=== PATIENT | male | born 1955 | race Caucasian/White ===

== ENCOUNTER → 2016-05-09 | Outpatient (CLI) | payer OTHER ==
[2016-05-09 15:12] LABS: ABSOLUTE EOSINOPHILS # (AUTO) 0.1 10^3/uL (0.0-0.6); ABSOLUTE MONOCYTES (AUTO) 0.4 10^3/uL (0.1-1.4); ABSOLUTE NEUT (AUTO) 1.5 10^3/uL (1.7-8.2); BASOPHILS % (AUTO) 0.7 % (0-2); EOSINOPHILS % (AUTO) 3.6 % (0-6); HEMATOCRIT 46.7 % (37.9-51.0); HEMOGLOBIN 16.3 g/dL (13.5-17.0); HGB HCT DIFFERENCE 2.2; LYMPHOCYTES % (AUTO) 48.7 % (13-45); MEAN CORPUSCULAR HEMOGLOBIN 33.1 pg (27.0-33.4); MEAN CORPUSCULAR HGB CONC 34.9 g/dL (32.0-36.0); MEAN CORPUSCULAR VOLUME 95 fl (80-97); MONOCYTES % (AUTO) 10.9 % (3-13); RED BLOOD COUNT 4.92 10^6/uL (4.35-5.55); RED CELL DISTRIBUTION WIDTH 13.6 % (11.5-14.0); SEGMENTED NEUTROPHILS % (AUTO) 36.1 % (42-78); WHITE BLOOD COUNT 4.1 10^3/uL (4.0-10.5)
[2016-05-09 15:26] LABS: ALANINE AMINOTRANSFERASE 171 U/L (21-72); ALBUMIN 4.8 g/dL (3.5-5.0); ALKALINE PHOSPHATASE 85 U/L (38-126); ANION GAP 14 (5-19); ASPARTATE AMINO TRANSFERASE 188 U/L (17-59); BILIRUBIN,TOTAL 2.1 mg/dL (0.2-1.3); BLOOD UREA NITROGEN 10 mg/dL (7-20); CALCIUM 10.4 mg/dL (8.4-10.2); CARBON DIOXIDE 25 mmol/L (22-30); CHLORIDE 105 mmol/L (98-107); CREATININE RESULT 0.92 mg/dL (0.52-1.25); GLUCOSE 130 mg/dL (75-110); MAGNESIUM 1.6 mg/dL (1.6-2.3); PHOSPHORUS 3.6 mg/dL (2.5-4.5); POTASSIUM 3.9 mmol/L (3.6-5.0); SODIUM 143.8 mmol/L (137-145); TOTAL PROTEIN 8.8 g/dL (6.3-8.2)
[2016-05-11 04:38] LABS: HEPATITIS C VIRUS AB >11.0 s/co ratio (0.0-0.9)
[2016-05-12 06:16] LABS: HEPATITIS A AB TOTAL Positive (Negative)
== END ==
LOC: CCC 14:12
DX: I10 Essential (primary) hypertension (principal); D69.6 Thrombocytopenia, unspecified; R25.2 Cramp and spasm
CPT/HCPCS: 36415; 72110; 73522; 80053; 83036; 83735; 84100; 84443; 85025; 86317; 86708; 86709; 86803; 86804; 87340

== ENCOUNTER 2016-12-12 12:42 | Emergency (ER) | payer SELFPAY ==
[2016-12-12] MEDS ORDERED: MORPHINE SULFATE 10 MG/ML INJ IV ONE (13:04)
--- NOTE | 2016-12-12 13:21 | ER Document Report ---
ED GI/ - General Chief Complaint: Urinary Problem Stated Complaint: URINARY ISSUES Time Seen by Provider: 12/12/16 12:57 Mode of Arrival: Ambulatory Information source: Patient Notes: 61 yo homeless (sleeping under bridge) divertulosis, tachycardia, arthritis in back, muscle cramps, neuropahty soles of feet, hypertension- ran out of meds, non smoke, etoh 3 x week, non drugs male with suprapubic pain with dysuria since friday, hematluria friday, slow stream-dribble, chills. Testicles ached this morning , reason he came in. No perioneal pain. Hx prostatitis (not same pain-that was perineal pain). Abstinant for 5 years. No hx std. PSH: appendectomy CT report already back, no diverticulitis or inflammatory changes, fatyy liver. UA shows dehydration. IV fluid started. TRAVEL OUTSIDE OF THE [place] IN LAST 30 DAYS: No - Related Data Allergies/Adverse Reactions: amoxicillin [Amoxicillin] Allergy (Unknown, Verified 12/12/16 12:47) ampicillin [Ampicillin] Allergy (Unknown, Verified 12/12/16 12:47) ceftriaxone sodium [From Rocephin] Allergy (Unknown, Verified 12/12/16 12:47) Cephalosporins Allergy (Unknown, Verified 12/12/16 12:47) Penicillins Allergy (Unknown, Verified 12/12/16 12:47) tetracycline [Tetracycline] Allergy (Unknown, Verified 12/12/16 12:47) Past Medical History - General Information source: Patient - Social History Smoking Status: Never Smoker Chew tobacco use (# tins/day): No Frequency of alcohol use: Occasional Drug Abuse: None Family History: Reviewed & Not Pertinent, Arthritis, Hypertension - Past Medical History Cardiac Medical History: Reports: Hx Hypertension Renal/ Medical History: Denies: Hx Peritoneal Dialysis GI Medical History: Reports: Hx Gastroesophageal Reflux Disease - PPI dependent Musculoskeltal Medical History: Reports Hx Arthritis Past Surgical History: Reports: Hx Appendectomy, Hx Orthopedic Surgery - Immunizations Hx Diphtheria, Pertussis, Tetanus Vaccination: Yes Review of Systems - Review of Systems Constitutional: No symptoms reported EENT: No symptoms reported Cardiovascular: No symptoms reported Respiratory: No symptoms reported Gastrointestinal: No symptoms reported Genitourinary: No symptoms reported Male Genitourinary: See HPI Musculoskeletal: No symptoms reported Skin: No symptoms reported Hematologic/Lymphatic: No symptoms reported Neurological/Psychological: No symptoms reported Physical Exam - Vital signs Vitals: Temp Pulse Resp BP Pulse Ox 98.4 F 72 18 148/83 H 95 12/12/16 12:47 12/12/16 12:47 12/12/16 12:47 12/12/16 12:47 12/12/16 12:47 Interpretation: Normal - General General appearance: Appears well, Alert - HEENT Head: Normocephalic, Atraumatic Eyes: Normal Pupils: PERRL - Respiratory Respiratory status: No respiratory distress Chest status: Nontender Breath sounds: Normal Chest palpation: Normal - Cardiovascular Rhythm: Regular Heart sounds: Normal auscultation Murmur: No - Abdominal Inspection: Normal Distension: No distension Bowel sounds: Normal Tenderness: Tender - mild suprapubic Organomegaly: No organomegaly - Rectal Tenderness: Yes Hemorrhoids: None Prostate: Tender - Back Back: Normal, Nontender. No: CVA tenderness - Extremities General upper extremity: Normal inspection, Nontender, Normal color, Normal ROM , Normal temperature General lower extremity: Normal inspection, Nontender, Normal color, Normal ROM , Normal temperature, Normal weight bearing. No: Evi's sign - Neurological Neuro grossly intact: Yes Cognition: Normal Orientation: AAOx4 Taylor Coma Scale Eye Opening: Spontaneous Taylor Coma Scale Verbal: Oriented Taylor Coma Scale Motor: Obeys Commands Taylor Coma Scale Total: 15 Speech: Normal Motor strength normal: LUE, RUE, LLE, RLE Sensory: Normal - Psychological Associated symptoms: Normal affect, Normal mood - Skin Skin Temperature: Warm Skin Moisture: Dry Skin Color: Normal Skin irregularity: negative: Rash Course - Vital Signs Vital signs: Temp Pulse Resp BP Pulse Ox 98.9 F 80 18 142/86 H 97 12/12/16 16:53 12/12/16 16:53 12/12/16 12:47 12/12/16 16:53 12/12/16 16:53 - Laboratory Result Diagrams: 12/12/16 14:15 12/12/16 14:15 Laboratory results interpreted by me: 12/12/16 12/12/16 12/12/16 13:04 14:15 14:15 MCH 34.1 H Plt Count 55 L Total Bilirubin 2.6 H Direct Bilirubin 0.9 H AST 93 H ALT 75 H Total Protein 8.9 H Urine Protein 30 H Urine Ketones TRACE H Urine Bilirubin SMALL H Urine Urobilinogen 4.0 H Urine Ascorbic Acid 40 H Discharge - Discharge Clinical Impression: Dysuria, Elevated liver enzymes, Dehydration Prostatitis Qualifiers: Prostatitis type: acute Qualified Code(s): N41.0 - Acute prostatitis Condition: Good Disposition: HOME, SELF-CARE Instructions: Liver Function Abnormality ([facility]), Prostatitis ([facility]), Trimethoprim -Sulfa ([facility]) Additional Instructions: plenty of fluids to er if worse you must take the antibiotics for 10 days Please complete the patient satisfaction survey if you get one, and return it.. If you do not receive a survey, then you can go to the [facility] website, [email or web address] and place your comments about your very good care. Thank you very much. It was a pleasure being your medical provider today. Prescriptions: Sulfamethoxazole/Trimethoprim [Sulfamethoxazole-Tmp Ds Tablet] 1 each PO BID # 20 tablet Referrals: GENIA DAVIS MD [[facility]] - Follow up as needed
[2016-12-12 13:45] LABS: APPEARANCE,URINE CLEAR; BILIRUBIN,URINE SMALL (NEGATIVE); GLUCOSE, URINE NEGATIVE (NEGATIVE); KETONES,URINE TRACE mg/dL (NEGATIVE); LEUKOCYTE ESTERASE,URINE NEGATIVE (NEGATIVE); NITRITE,URINE NEGATIVE (NEGATIVE); PROTEIN,URINE 30 mg/dL (NEGATIVE); URINE SPECIFIC GRAVITY 1.035
--- NOTE | 2016-12-12 14:16 | RADIOLOGY REPORT (SQ) ---
EXAM DESCRIPTION: CT ABD/PELVIS NO ORAL OR IV COMPLETED DATE/TIME: 12/12/2016 2:06 pm REASON FOR STUDY: suprapubic pain/bloody urine COMPARISON: 05/19/2009. TECHNIQUE: CT scan of the abdomen and pelvis performed without intravenous or oral contrast. Images reviewed with lung, soft tissue, and bone windows. Reconstructed coronal and sagittal MPR images revi ewed. All images stored on PACS. All CT scanners at this facility use dose modulation, iterative reconstruction, and/or weight based d osing when appropriate to reduce radiation dose to as low as reasonably achievable (ALARA). [facility]: Dose Right [facility]: CareDose [facility]: Dose Right [facility]: Teradose 4D [facility]: [employer] RADIATION DOSE: mGy. LIMITATIONS: None. FINDINGS: LOWER CHEST: No significant findings. No nodules or infiltrates. NON-CONTRASTED LIVER, SPLEEN, ADRENALS: Evaluation limited by lack of IV contrast. Hepatomegaly with diffuse decreased attenuation. Slightly nodular contour of the liver. No identified significant ma sses. PANCREAS: No masses. No peripancreatic inflammatory changes. GALLBLADDER: No identified stones by CT criteria. No inflammatory changes to suggest cholecystitis. RIGHT KIDNEY AND URETER: No suspicious masses. Assessment limited by lack of IV contrast. No signif icant calcifications. No hydronephrosis or hydroureter. LEFT KIDNEY AND URETER: No suspicious masses. Assessment limited by lack of IV contrast. No signifi cant calcifications. No hydronephrosis or hydroureter. AORTA AND RETROPERITONEUM: No aneurysm. No retroperitoneal masses or adenopathy. BOWEL AND PERITONEAL CAVITY: Scattered diverticuli primarily in the sigmoid colon. No obvious masses or inflammatory changes. No free fluid. APPENDIX: Not visualized. PELVIS, BLADDER, AND ABDOMINAL WALL:No abnormal masses. No free fluid. Bladder normal. BONES: No significant findings. OTHER: No other significant finding. IMPRESSION: 1. SIGMOID DIVERTICULOSIS. NO CT FINDINGS OF ACUTE DIVERTICULITIS. 2. FATTY INFILTRATION OF THE LIVER. 3. NO OTHER SIGNIFICANT OR ACUTE PROCESS IN THE ABDOMEN OR PELVIS. COMMENT: Quality ID # [id number]: Final reports with documentation of one or more dose reduction techniques (e.g., Automated exposure control, adjustment of the mA and/or kV according to patient size, use of iterative reconstruction technique) TECHNICAL DOCUMENTATION: JOB ID: [id number]- All Rights Reserved
[2016-12-12] MEDS ORDERED: NORMAL SALINE 1000 ML 2,000 ML IV ONE (14:28)
[2016-12-12] MEDS ORDERED: ONDANSETRON 4 MG TAB.RAPDIS PO ONE (14:33)
[2016-12-12 14:39] LABS: ABSOLUTE EOSINOPHILS # (AUTO) 0.2 10^3/uL (0.0-0.6); ABSOLUTE LYMPHOCYTES (AUTO) 1.8 10^3/uL (0.5-4.7); ABSOLUTE MONOCYTES (AUTO) 0.5 10^3/uL (0.1-1.4); ABSOLUTE NEUT (AUTO) 2.2 10^3/uL (1.7-8.2); BASOPHILS % (AUTO) 0.8 % (0-2); EOSINOPHILS % (AUTO) 3.6 % (0-6); HEMATOCRIT 43.6 % (37.9-51.0); HEMOGLOBIN 15.4 g/dL (13.5-17.0); HGB HCT DIFFERENCE 2.6; LYMPHOCYTES % (AUTO) 38.9 % (13-45); MEAN CORPUSCULAR HEMOGLOBIN 34.1 pg (27.0-33.4); MEAN CORPUSCULAR HGB CONC 35.4 g/dL (32.0-36.0); MEAN CORPUSCULAR VOLUME 96 fl (80-97); MONOCYTES % (AUTO) 9.8 % (3-13); RED BLOOD COUNT 4.53 10^6/uL (4.35-5.55); SEGMENTED NEUTROPHILS % (AUTO) 46.9 % (42-78); WHITE BLOOD COUNT 4.7 10^3/uL (4.0-10.5)
[2016-12-12 14:54] LABS: ALANINE AMINOTRANSFERASE 75 U/L (21-72); ALBUMIN 4.6 g/dL (3.5-5.0); ALKALINE PHOSPHATASE 79 U/L (38-126); ANION GAP 13 (5-19); ASPARTATE AMINO TRANSFERASE 93 U/L (17-59); BILIRUBIN,DIRECT 0.9 mg/dL (0.0-0.4); BILIRUBIN,TOTAL 2.6 mg/dL (0.2-1.3); BLOOD UREA NITROGEN 14 mg/dL (7-20); CALCIUM 9.6 mg/dL (8.4-10.2); CARBON DIOXIDE 26 mmol/L (22-30); CHLORIDE 104 mmol/L (98-107); CREATININE RESULT 0.93 mg/dL (0.52-1.25); GLUCOSE 101 mg/dL (75-110); LIPASE 286.2 U/L (23-300); POTASSIUM 3.8 mmol/L (3.6-5.0); SODIUM 143.2 mmol/L (137-145); TOTAL PROTEIN 8.9 g/dL (6.3-8.2)
[2016-12-12] MEDS ORDERED: SULFAMETHOXAZOLE/TRIMETHOPRIM 800-160 MG TABLET PO ONE ×2 (15:30→15:36)
[2016-12-12 17:21] VITALS: BP 142/86
== END 2016-12-12 16:53 | disposition home or self-care (01) ==
LOC: ER 12:42
DX: N41.0 Acute prostatitis (principal); E86.0 Dehydration; R30.0 Dysuria; R74.8 Abnormal levels of other serum enzymes; R39.198 Other difficulties with micturition; R00.0 Tachycardia, unspecified; M46.90 Unspecified inflammatory spondylopathy, site unspecified
CPT/HCPCS: 99284; 96374; 36415; 87086; 83690; 85025; 80053; 81001; 74176; S0119; J2270; J7030

== ENCOUNTER 2017-08-09 20:32 | Emergency (ER) | payer SELFPAY ==
--- NOTE | 2017-08-09 21:11 | RADIOLOGY REPORT (SQ) ---
EXAM DESCRIPTION: SHOULDER RIGHT 2 OR MORE VIEWS COMPLETED DATE/TIME: 08/09/2017 9:04 pm REASON FOR STUDY: INJURY, PAIN COMPARISON: None. NUMBER OF VIEWS: Three views. TECHNIQUE: Internal rotation, external rotation, and Y view images acquired of the right shoulder. LIMITATIONS: None. FINDINGS: MINERALIZATION: Normal. BONES: No acute fracture or dislocation. No worrisome bone lesions. JOINTS: No dislocation. AC arthropathy. VISUALIZED LUNGS AND RIBS: No pneumothorax. No rib fracture. SOFT TISSUES: No radiopaque foreign body. OTHER: No other significant finding. IMPRESSION: NEGATIVE STUDY OF THE RIGHT SHOULDER. NO RADIOGRAPHIC EVIDENCE OF ACUTE INJURY. TECHNICAL DOCUMENTATION: JOB ID: [id number] [employer]- All Rights Reserved Reading location - IP/workstation name: [email or web address]
[2017-08-09] MEDS ORDERED: TRAMADOL HCL 50 MG TABLET PO ONE (21:25)
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
[2017-08-09 21:54] VITALS: BP 148/88
== END 2017-08-09 21:52 | disposition home or self-care (01) ==
LOC: ER 20:32
DX: S46.911A Strain of unspecified muscle, fascia and tendon at shoulder and upper arm level, right arm, initial encounter (principal); M25.511 Pain in right shoulder; W22.8XXA Striking against or struck by other objects, initial encounter; Y93.55 Activity, bike riding; I10 Essential (primary) hypertension; F17.200 Nicotine dependence, unspecified, uncomplicated; Z88.0 Allergy status to penicillin; Z88.1 Allergy status to other antibiotic agents
CPT/HCPCS: 99283

== ENCOUNTER 2017-08-15 15:12 | Emergency (ER) | payer SELFPAY ==
[2017-08-15 15:19] VITALS: BP 145/90
[2017-08-15] MEDS ORDERED: ACETAMINOPHEN 325 MG TABLET PO ONE (15:34)
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
== END 2017-08-15 17:15 | disposition left against medical advice (07) ==
LOC: ER 15:12
DX: S09.90XA Unspecified injury of head, initial encounter (principal); S00.81XA Abrasion of other part of head, initial encounter; S40.211A Abrasion of right shoulder, initial encounter; S80.211A Abrasion, right knee, initial encounter; S70.311A Abrasion, right thigh, initial encounter; S00.211A Abrasion of right eyelid and periocular area, initial encounter; S20.312A Abrasion of left front wall of thorax, initial encounter; S20.311A Abrasion of right front wall of thorax, initial encounter; S80.812A Abrasion, left lower leg, initial encounter; S40.011A Contusion of right shoulder, initial encounter; S40.029A Contusion of unspecified upper arm, initial encounter; S50.01XA Contusion of right elbow, initial encounter; S80.01XA Contusion of right knee, initial encounter; S80.12XA Contusion of left lower leg, initial encounter; M54.2 Cervicalgia; M79.1 Myalgia; R51 Headache; V19.9XXA Pedal cyclist (driver) (passenger) injured in unspecified traffic accident, initial encounter; Z59.0 Homelessness; I10 Essential (primary) hypertension
CPT/HCPCS: 70450; 70486; 71111; 72125; 99284

== ENCOUNTER 2017-08-22 13:03 | Emergency (ER) | payer SELFPAY ==
[2017-08-22 13:17] VITALS: BP 168/106
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
== END 2017-08-22 13:44 | disposition left against medical advice (07) ==
LOC: ER 13:03
DX: M79.605 Pain in left leg (principal); I10 Essential (primary) hypertension; Z80.0 Family history of malignant neoplasm of digestive organs
CPT/HCPCS: 99281

== ENCOUNTER 2017-10-09 12:31 | Inpatient (IN) | payer SELFPAY ==
[2017-10-09] MEDS ORDERED: ASPIRIN 81 MG TABLET, CHEWABLE PO ONE (13:14)
[2017-10-09] MEDS ORDERED: LORAZEPAM INJ 2 MG/1 ML VIAL IV ONE (13:17)
--- NOTE | 2017-10-09 13:17 | ER Document Report ---
ED Medical Screen (RME) - General Chief Complaint: Chest Pain Stated Complaint: CHEST PAIN Time Seen by Provider: 10/09/17 13:08 Notes: 62 years old male with a history of cocaine abuse in the past, drinks 3-4 beers a day, claims that he has not drank anything for 2 days. Presents with substernal chest pain radiating to the back since yesterday, associated with some difficulty in breathing. No left arm numbness tingling sensation nausea vomiting palpitation or diaphoresis. Also claimed that he is having severe left lower abdominal pain, chronic numbness and tingling sensation over the lower extremity. TRAVEL OUTSIDE OF THE [place] IN LAST 30 DAYS: No - Related Data Allergies/Adverse Reactions: amoxicillin [Amoxicillin] Allergy (Unknown, Verified 10/09/17 12:34) ampicillin [Ampicillin] Allergy (Unknown, Verified 10/09/17 12:34) ceftriaxone sodium [From Rocephin] Allergy (Unknown, Verified 10/09/17 12:34) Cephalosporins Allergy (Unknown, Verified 10/09/17 12:34) Penicillins Allergy (Unknown, Verified 10/09/17 12:34) tetracycline [Tetracycline] Allergy (Unknown, Verified 10/09/17 12:34) Past Medical History - Social History Chew tobacco use (# tins/day): No Frequency of alcohol use: Heavy Drug Abuse: None - Past Medical History Cardiac Medical History: Reports: Hx Hypertension Renal/ Medical History: Denies: Hx Peritoneal Dialysis GI Medical History: Reports: Hx Gastroesophageal Reflux Disease - PPI dependent Musculoskeltal Medical History: Reports Hx Arthritis, Reports Hx Musculoskeletal Deformity, Reports Hx Musculoskeletal Trauma Past Surgical History: Reports: Hx Appendectomy, Hx Orthopedic Surgery - Immunizations Hx Diphtheria, Pertussis, Tetanus Vaccination: Yes - 2015 Physical Exam - Vital signs Vitals: Temp Pulse Resp BP 98.1 F 115 H 22 H 182/101 H 10/09/17 12:45 10/09/17 12:45 10/09/17 12:45 10/09/17 12:45 Course - Vital Signs Vital signs: Temp Pulse Resp BP Pulse Ox 98.1 F 115 H 22 H 182/101 H 10/09/17 12:45 10/09/17 12:45 10/09/17 12:45 10/09/17 12:45
[2017-10-09] MEDS: NORMAL SALINE 1000 ML 1,000 ML IV PRN ×2 (13:36→21:34)
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
[2017-10-09 14:19] LABS: ABSOLUTE LYMPHOCYTES (AUTO) 0.9 10^3/uL (0.5-4.7); ABSOLUTE MONOCYTES (AUTO) 0.4 10^3/uL (0.1-1.4); ABSOLUTE NEUT (AUTO) 2.2 10^3/uL (1.7-8.2); BASOPHILS % (AUTO) 0.6 % (0-2); EOSINOPHILS % (AUTO) 0.8 % (0-6); HEMATOCRIT 44.5 % (37.9-51.0); HEMOGLOBIN 15.5 g/dL (13.5-17.0); LYMPHOCYTES % (AUTO) 26.6 % (13-45); MEAN CORPUSCULAR HEMOGLOBIN 33.4 pg (27.0-33.4); MEAN CORPUSCULAR HGB CONC 34.9 g/dL (32.0-36.0); MEAN CORPUSCULAR VOLUME 96 fl (80-97); MONOCYTES % (AUTO) 10.7 % (3-13); RED BLOOD COUNT 4.64 10^6/uL (4.35-5.55); RED CELL DISTRIBUTION WIDTH 13.9 % (11.5-14.0); SEGMENTED NEUTROPHILS % (AUTO) 61.3 % (42-78); TOTAL CELLS COUNTED % (AUTO) 100 %; WHITE BLOOD COUNT 3.5 10^3/uL (4.0-10.5)
--- NOTE | 2017-10-09 14:22 | RADIOLOGY REPORT (SQ) ---
EXAM DESCRIPTION: CHEST SINGLE VIEW COMPLETED DATE/TIME: 10/09/2017 2:13 pm REASON FOR STUDY: Chest pain chest pain COMPARISON: 03/12/2016 EXAM PARAMETERS: NUMBER OF VIEWS: One view. TECHNIQUE: Single frontal radiographic view of the chest acquired. RADIATION DOSE: NA LIMITATIONS: None. FINDINGS: LUNGS AND PLEURA: No opacities, masses or pneumothorax. No pleural effusion. MEDIASTINUM AND HILAR STRUCTURES: No masses. Contour normal. HEART AND VASCULAR STRUCTURES: Heart normal in size. Normal vasculature. BONES: No acute findings. HARDWARE: None in the chest. OTHER: No other significant finding. IMPRESSION: NO ACUTE RADIOGRAPHIC FINDING IN THE CHEST. TECHNICAL DOCUMENTATION: JOB ID: [id number] [employer]- All Rights Reserved Reading location - IP/workstation name: [email or web address]
--- NOTE | 2017-10-09 14:23 | RADIOLOGY REPORT (SQ) ---
EXAM DESCRIPTION: KUB/ABDOMEN (SINGLE VIEW) COMPLETED DATE/TIME: 10/09/2017 2:13 pm REASON FOR STUDY: Abdominal pain COMPARISON: None. NUMBER OF VIEWS: One view. TECHNIQUE: Supine radiographic image of the abdomen acquired. LIMITATIONS: None. FINDINGS: BOWEL GAS PATTERN: Normal bowel gas pattern. No dilated loops. CALCIFICATIONS: No suspicious calcifications. SOFT TISSUES: No gross mass or suggestion of organomegaly. HARDWARE: None in the abdomen. BONES: No acute fracture. No worrisome bone lesions. OTHER: No other significant finding. IMPRESSION: NO RADIOGRAPHIC EVIDENCE FOR ACUTE ABDOMINAL DISEASE. TECHNICAL DOCUMENTATION: JOB ID: [id number] [employer]- All Rights Reserved Reading location - IP/workstation name: [email or web address]
[2017-10-09 14:37] LABS: ALANINE AMINOTRANSFERASE 84 U/L (21-72); ALBUMIN 4.4 g/dL (3.5-5.0); ALKALINE PHOSPHATASE 88 U/L (38-126); ANION GAP 16 (5-19); ASPARTATE AMINO TRANSFERASE 205 U/L (17-59); BILIRUBIN,DIRECT 1.3 mg/dL (0.0-0.4); BILIRUBIN,TOTAL 3.1 mg/dL (0.2-1.3); BLOOD UREA NITROGEN 7 mg/dL (7-20); CALCIUM 9.8 mg/dL (8.4-10.2); CARBON DIOXIDE 25 mmol/L (22-30); CHLORIDE 102 mmol/L (98-107); CREATINE KINASE 316 U/L (55-170); GLUCOSE 112 mg/dL (75-110); POTASSIUM 3.8 mmol/L (3.6-5.0); SODIUM 143.1 mmol/L (137-145); TOTAL PROTEIN 9.8 g/dL (6.3-8.2)
[2017-10-09 14:38] LABS: ALCOHOL < 10 mg/dL (NONE DETECTED)
[2017-10-09 14:45] LABS: PLATELET COUNT 47 10^3/uL (150-450)
[2017-10-09 14:47] LABS: CREATINE KINASE MB 2.98 ng/mL (<4.55); TROPONIN I 0.018 ng/mL
--- NOTE | 2017-10-09 15:11 | RADIOLOGY REPORT (SQ) ---
EXAM DESCRIPTION: TIBIA FIBULA RIGHT COMPLETED DATE/TIME: 10/09/2017 3:01 pm REASON FOR STUDY: 16; pain after fall COMPARISON: 04/12/2011. NUMBER OF VIEWS: Two views. TECHNIQUE: Two radiographic images acquired of the right tibia and fibula to include the knee and an kle in at least one projection. LIMITATIONS: None. FINDINGS: MINERALIZATION: Normal. BONES: No acute fracture or dislocation. No worrisome bone lesions. SOFT TISSUES: No obvious swelling or foreign body. OTHER: No other significant finding. IMPRESSION: NEGATIVE STUDY OF THE RIGHT TIBIA AND FIBULA. NO RADIOGRAPHIC EVIDENCE OF ACUTE INJURY. TECHNICAL DOCUMENTATION: JOB ID: [id number] [employer]- All Rights Reserved Reading location - IP/workstation name: [email or web address]
[2017-10-09 15:22] LABS: APPEARANCE,URINE SLIGHTLY-CLOUDY; BILIRUBIN,URINE SMALL (NEGATIVE); CALCIUM OXALATE CRYSTALS,URINE FEW /HPF; COLOR,URINE AMBER; GLUCOSE, URINE NEGATIVE (NEGATIVE); KETONES,URINE 20 mg/dL (NEGATIVE); LEUKOCYTE ESTERASE,URINE NEGATIVE (NEGATIVE); NITRITE,URINE NEGATIVE (NEGATIVE); PROTEIN,URINE 30 mg/dL (NEGATIVE); URINE SPECIFIC GRAVITY 1.029
[2017-10-09 15:34] LABS: URINE AMPHETAMINES SCREEN NEGATIVE; URINE BARBITURATES SCREEN NEGATIVE; URINE BENZODIAZEPINES SCREEN NEGATIVE; URINE COCAINE SCREEN NEGATIVE; URINE MARIJUANA (THC) SCREEN NEGATIVE; URINE METHADONE SCREEN NEGATIVE; URINE PHENCYCLIDINE SCREEN NEGATIVE
--- NOTE | 2017-10-09 15:52 | RADIOLOGY REPORT (SQ) ---
EXAM DESCRIPTION: CT HEAD WITHOUT COMPLETED DATE/TIME: 10/09/2017 3:41 pm REASON FOR STUDY: 16; fall COMPARISON: 08/15/2017 TECHNIQUE: Axial images acquired through the brain without intravenous contrast. Images reviewed wi th bone, brain and subdural windows. Additional sagittal and coronal reconstructions were generated. Images stored on PACS. All CT scanners at this facility use dose modulation, iterative reconstruction, and/or weight based d osing when appropriate to reduce radiation dose to as low as reasonably achievable (ALARA). [facility]: Dose Right [facility]: CareDose [facility]: Dose Right [facility]: Teradose 4D [facility]: Smart [employer] RADIATION DOSE: CT Rad equipment meets quality standard of care and radiation dose reduction techniq ues were employed. CTDIvol: 53.2 mGy. DLP: 1017 mGy-cm. mGy. LIMITATIONS: None. FINDINGS: VENTRICLES: Normal size and contour. CEREBRUM: No masses. No hemorrhage. No midline shift. No evidence for acute infarction. Normal gra y/white matter differentiation. No areas of low density in the white matter. CEREBELLUM: No masses. No hemorrhage. No alteration of density. No evidence for acute infarction. EXTRAAXIAL SPACES: No fluid collections. No masses. ORBITS AND GLOBE: No intra- or extraconal masses. Normal contour of globe without masses. CALVARIUM: No fracture. PARANASAL SINUSES: No fluid or mucosal thickening. SOFT TISSUES: No mass or hematoma. OTHER: No other significant finding. IMPRESSION: NORMAL BRAIN CT WITHOUT CONTRAST. EVIDENCE OF ACUTE STROKE: NO. COMMENT: Quality ID # [id number]: Final reports with documentation of one or more dose reduction techniques (e.g., Automated exposure control, adjustment of the mA and/or kV according to patient size, use of iterative reconstruction technique) TECHNICAL DOCUMENTATION: JOB ID: [id number] [employer]- All Rights Reserved Reading location - IP/workstation name: [email or web address]
--- NOTE | 2017-10-09 15:58 | RADIOLOGY REPORT (SQ) ---
EXAM DESCRIPTION: CT CHEST WITH; CT ABD/PELVIS WITH IV ONLY COMPLETED DATE/TIME: 10/09/2017 3:41 pm REASON FOR STUDY: 16; trauma; fall from 10 feet two days ago; 16, fall from height two days ago with chest/belly COMPARISON: None. CONTRAST TYPE AND DOSE: contrast/concentration: Isovue 370.00 mg/ml; Total Contrast Delivered: 86.0 ml; Total Saline Delivered: 56.3 ml RENAL FUNCTION: GFR > 60. TECHNIQUE: CT scan of the chest performed using helical scanning technique with dynamic intravenous contrast injection. Images reviewed with lung, soft tissue and bone windows. Reconstructed coronal a nd sagittal MPR images reviewed. All images stored on PACS. CT scan of the abdomen and pelvis performed with intravenous and without oral contrastusing helical s jessica technique with dynamic intravenous contrast injection. Images reviewed with lung, soft tissu e and bone windows. Reconstructed coronal and sagittal MPR images reviewed. Delayed images for eval uation of the urinary system also acquired and evaluated. All images stored on PACS. All CT scanners at this facility use dose modulation, iterative reconstruction, and/or weight based d osing when appropriate to reduce radiation dose to as low as reasonably achievable (ALARA). [facility]: Dose Right [facility]: CareDose [facility]: Dose Right [facility]: Teradose 4D [facility]: [email or web address] RADIATION DOSE: CT Rad equipment meets quality standard of care and radiation dose reduction techniq ues were employed. CTDIvol: 8.3 - 12.6 mGy. DLP: 1239 mGy-cm. . LIMITATIONS: None. FINDINGS: CHEST: LUNGS AND PLEURA: No opacities, nodules, masses. No pneumothorax. No effusions. HILAR AND MEDIASTINAL STRUCTURES: No identified masses or abnormal nodes. HEART AND VASCULAR STRUCTURES: No aneurysm or dissection. No central pulmonary emboli. No pericardi al effusion. HARDWARE: None. THYROID AND OTHER SOFT TISSUES: No masses. No adenopathy. BONES: No significant finding. OTHER: No other significant finding. ABDOMEN AND PELVIS: LIVER: Diffuse fatty infiltration. No masses. SPLEEN: Normal size. No focal lesions. PANCREAS: No masses. No significant calcifications. No adjacent inflammation or peripancreatic fluid collections. Pancreatic duct not dilated. GALLBLADDER: No identified stones by CT criteria. No inflammatory changes to suggest cholecystitis. ADRENAL GLANDS: No significant masses or asymmetry. RIGHT KIDNEY AND URETER: No solid masses. No significant calcification. No hydronephrosis or hydroure ter. LEFT KIDNEY AND URETER: No solid masses. No significant calcification. No hydronephrosis or hydrouret er. AORTA AND VESSELS: No aneurysm. No dissection. Renal arteries, SMA, celiac without stenosis. RETROPERITONEUM: No retroperitoneal adenopathy, hemorrhage or masses. BOWEL AND PERITONEAL CAVITY: Diffuse diverticulosis. No diverticulitis. APPENDIX: Surgically absent. ABDOMINAL WALL: Left inguinal hernia contains fat. PELVIS: No mass or free fluid. Normal bladder. BONES: No significant or acute findings. OTHER: No other significant finding. IMPRESSION: NORMAL CT OF THE CHEST WITH IV CONTRAST. Markedly fatty liver. No acute post traumatic changes. TECHNICAL DOCUMENTATION: JOB ID: [id number] Quality ID # [id number]: Final reports with documentation of one or more dose reduction techniques (e.g., Au tomated exposure control, adjustment of the mA and/or kV according to patient size, use of iterative reconstruction technique) 2010 [employer]- All Rights Reserved Reading location - IP/workstation name: [email or web address]
[2017-10-09] MEDS ORDERED: NITROGLYCERIN 0.4 MG/TAB 25 TAB/BOTTLE SL PRN (18:59)
[2017-10-09] MEDS ORDERED: MAG HYDROX/AL HYDROX/SIMETH SUSP 30 ML UDCUP PO PRN (19:02)
[2017-10-09] MEDS ORDERED: ONDANSETRON HCL INJ/PF 4 MG/2 ML SDV IV PRN (19:02)
[2017-10-09 19:03] LABS: PROTHROMBIN TIME 16.8 SEC (11.4-15.4)
[2017-10-09 19:05] LABS: D-DIMER 1.14 ug/mL (0.00-0.50)
[2017-10-09] MEDS ORDERED: LORAZEPAM INJ 2 MG/1 ML VIAL IV PRN (19:07)
[2017-10-09] MEDS ORDERED: NITROGLYCERIN 0.4 MG/TAB 25 TAB/BOTTLE SL ONE (19:30)
[2017-10-09] MEDS: MORPHINE SULFATE 10 MG/ML INJ IV PRN (19:36)
[2017-10-09] MEDS ORDERED: TRAMADOL HCL 50 MG TABLET PO PRN (19:36)
[2017-10-09] MEDS: LORAZEPAM INJ 2 MG/1 ML VIAL IV PRN (19:37)
[2017-10-09] MEDS ORDERED: HYDRALAZINE HCL INJ/PF 20 MG/1 ML SDV IV PRN (19:49)
--- NOTE | 2017-10-09 19:51 | PDOC H&P ---
History of Present Illness Patient complains of: Chest pain History of Present Illness: JING BONILLA is a 62 year old male with a past medical history of hypertension, alcohol abuse with continuous use, an who presented to the emergency department today with a complaint of sudden onset chest pain that woke him from sleep. His pain is described as d GERD midsternal radiating to his back and worsened by activity, relieved by lying in a left lateral recumbent position. He reports that his pain is associated with slight dyspnea diaphoresis. He did have an episode of nausea with vomiting earlier today. He also reports that approximately 3 days ago, the patient fell approximately 10 feet landing on his back and now has upper back pain, mid abdominal pain and suprapubic pain. He denies loss of consciousness. Following his fall, he decided that he needed to stop drinking alcohol and abruptly ceased all alcohol consumption. His last alcohol intake was 10/07/17. He denies a history of alcohol withdrawal or seizure. Evaluation in the emergency department reveals essentially normal imaging including a head CT, noncontrasted CT of the chest, abdomen, and pelvis, normal chest x-ray, KUB, and right tibia/fibula. EKG reveals sinus tachycardia with left anterior fascicular block which is changed from previous EKG in 2016 which showed normal sinus rhythm. Initial troponin is 0.018, follow-up is indeterminately elevated at 0.029. The patient does continue to complain of intermittent chest pain associated with dyspnea. Laboratory evaluation reveals thrombocytopenia (47), elevated PT/INR (16.8/1.30) and an elevated d-dimer (1.14 ), elevated LFTs, mildly elevated lipase (342) urinalysis suggestive of dehydration and a normal tox screen. The patient is referred to the hospitalist service for observational admission and chest pain rule out. Past Medical History Cardiac Medical History: Reports: Hyperlipidema, Hypertension Denies: Congestive Heart Failure, Myocardial Infarction Pulmonary Medical History: Reports: None EENT Medical History: Reports: None Neurological Medical History: Reports: None Endocrine Medical History: Reports: None Renal/ Medical History: Reports: None Malignancy Medical History: Reports: None GI Medical History: Reports: Gastroesophageal Reflux Disease - PPI dependent Musculoskeltal Medical History: Reports: Arthritis Skin Medical History: Reports: None Psychiatric Medical History: Reports: Alcohol Dependency Denies: Substance Abuse, Tobacco Dependency Traumatic Medical History: Reports: None Hematology: Reports: None Infectious Medical History: Reports: None Past Surgical History Past Surgical History: Reports: Appendectomy, Orthopedic Surgery Social History Information Source: Patient Lives with: Alone Smoking Status: Never Smoker Frequency of Alcohol Use: Heavy Hx Recreational Drug Use: Yes - in recovery Drugs: None Hx Prescription Drug Abuse: No - Advance Directive Resuscitation Status: Full Code Surrogate healthcare decision maker:: The patient's sister, Solange Conroy Family History Family History: Reviewed & Not Pertinent, Arthritis, Hypertension Parental Family History Reviewed: Yes Children Family History Reviewed: Yes Sibling(s) Family History Reviewed.: Yes Medication/Allergy Home Medications: Tramadol HCl [Ultram 50 mg Tablet] 50 mg PO Q6HP PRN 10/09/17 Allergies/Adverse Reactions: amoxicillin [Amoxicillin] Allergy (Unknown, Verified 10/09/17 12:34) ampicillin [Ampicillin] Allergy (Unknown, Verified 10/09/17 12:34) ceftriaxone sodium [From Rocephin] Allergy (Unknown, Verified 10/09/17 12:34) Cephalosporins Allergy (Unknown, Verified 10/09/17 12:34) Penicillins Allergy (Unknown, Verified 10/09/17 12:34) tetracycline [Tetracycline] Allergy (Unknown, Verified 10/09/17 12:34) Review of Systems Constitutional: PRESENT: headache(s). ABSENT: chills, fever(s), weight gain, weight loss Eyes: ABSENT: visual disturbances Ears: ABSENT: hearing changes Cardiovascular: PRESENT: chest pain. ABSENT: dyspnea on exertion, edema, orthropnea, palpitations Respiratory: PRESENT: dyspnea. ABSENT: cough, hemoptysis Gastrointestinal: PRESENT: abdominal pain, nausea, vomiting. ABSENT: coffee ground emesis, constipation, diarrhea, hematemesis, hematochezia Genitourinary: ABSENT: dysuria, hematuria Musculoskeletal: PRESENT: back pain. ABSENT: joint swelling Integumentary: ABSENT: rash, wounds Neurological: PRESENT: weakness. ABSENT: abnormal gait, abnormal speech, confusion, dizziness, focal weakness, syncope Psychiatric: ABSENT: anxiety, depression, homidical ideation, suicidal ideation Endocrine: ABSENT: cold intolerance, heat intolerance, polydipsia, polyuria Hematologic/Lymphatic: ABSENT: easy bleeding, easy bruising Physical Exam Vital Signs: Temp Pulse Resp BP Pulse Ox 98.1 F 115 H 14 138/89 H 98 10/09/17 12:45 10/09/17 12:45 10/09/17 18:00 10/09/17 15:16 10/09/17 18:00 Intake & Output 10/08/17 10/09/17 10/10/17 06:59 06:59 06:59 Weight 79.9 kg General appearance: PRESENT: no acute distress, cooperative, well-developed, well-nourished - Overweight Head exam: PRESENT: atraumatic, normocephalic Eye exam: PRESENT: conjunctiva pink, EOMI, PERRLA. ABSENT: scleral icterus Ear exam: PRESENT: normal external ear exam Mouth exam: PRESENT: moist, tongue midline Neck exam: ABSENT: carotid bruit, JVD, lymphadenopathy, thyromegaly Respiratory exam: PRESENT: clear to auscultation rogelio, symmetrical, unlabored. ABSENT: rales, rhonchi, wheezes Cardiovascular exam: PRESENT: RRR, +S1, +S2. ABSENT: diastolic murmur, rubs, systolic murmur Pulses: PRESENT: normal dorsalis pedis pul Vascular exam: PRESENT: normal capillary refill GI/Abdominal exam: PRESENT: normal bowel sounds, soft, tenderness, other - Slight ecchymosis. ABSENT: distended, guarding, mass, organolmegaly, rebound Rectal exam: PRESENT: deferred Gentrourinary exam: PRESENT: other - Patient refused exam Extremities exam: PRESENT: full ROM. ABSENT: calf tenderness, clubbing, pedal edema Neurological exam: PRESENT: alert, awake, oriented to person, oriented to place , oriented to time, oriented to situation, CN II-XII grossly intact. ABSENT: motor sensory deficit Psychiatric exam: PRESENT: appropriate affect, normal mood. ABSENT: homicidal ideation, suicidal ideation Skin exam: PRESENT: dry, intact, warm, other - Scattered ecchymosis. ABSENT: cyanosis, rash Results Laboratory Results: 10/09/17 13:38 10/09/17 13:38 10/09/17 10/09/17 10/09/17 13:38 13:38 13:38 WBC 3.5 L RBC 4.64 Hgb 15.5 Hct 44.5 MCV 96 MCH 33.4 MCHC 34.9 RDW 13.9 Plt Count 47 L Seg Neutrophils % 61.3 Lymphocytes % 26.6 Monocytes % 10.7 Eosinophils % 0.8 Basophils % 0.6 Absolute Neutrophils 2.2 Absolute Lymphocytes 0.9 Absolute Monocytes 0.4 Absolute Eosinophils 0.0 Absolute Basophils 0.0 Sodium 143.1 Potassium 3.8 Chloride 102 Carbon Dioxide 25 Anion Gap 16 BUN 7 Creatinine 0.68 Est GFR ( Amer) > 60 Est GFR (Non-Af Amer) > 60 Glucose 112 H Calcium 9.8 Total Bilirubin 3.1 H AST 205 H ALT 84 H Alkaline Phosphatase 88 Total Protein 9.8 H Albumin 4.4 Lipase 342.8 H Urine Color Urine Appearance Urine pH Ur Specific [place] Urine Protein Urine Glucose (UA) Urine Ketones Urine Blood Urine Nitrite Ur Leukocyte Esterase Urine WBC (Auto) Urine RBC (Auto) 10/09/17 14:56 WBC RBC Hgb Hct MCV MCH MCHC RDW Plt Count Seg Neutrophils % Lymphocytes % Monocytes % Eosinophils % Basophils % Absolute Neutrophils Absolute Lymphocytes Absolute Monocytes Absolute Eosinophils Absolute Basophils Sodium Potassium Chloride Carbon Dioxide Anion Gap BUN Creatinine Est GFR ( Amer) Est GFR (Non-Af Amer) Glucose Calcium Total Bilirubin AST ALT Alkaline Phosphatase Total Protein Albumin Lipase Urine Color ROSALINDA Urine Appearance SLIGHTLY-CLOUDY Urine pH 5.0 Ur Specific [place] 1.029 Urine Protein 30 H Urine Glucose (UA) NEGATIVE Urine Ketones 20 H Urine Blood SMALL H Urine Nitrite NEGATIVE Ur Leukocyte Esterase NEGATIVE Urine WBC (Auto) 2 Urine RBC (Auto) 4 10/09/17 10/09/17 10/09/17 13:38 13:38 16:28 Creatine Kinase 316 H CK-MB (CK-2) 2.98 Troponin I 0.018 0.029 Impressions: Chest X-Ray 10/09/17 13:14 IMPRESSION: NO ACUTE RADIOGRAPHIC FINDING IN THE CHEST. KUB X-Ray 10/09/17 13:15 IMPRESSION: NO RADIOGRAPHIC EVIDENCE FOR ACUTE ABDOMINAL DISEASE. Abdomen/Pelvis CT 10/09/17 14:05 IMPRESSION: NORMAL CT OF THE CHEST WITH IV CONTRAST. Markedly fatty liver. No acute post traumatic changes. Chest CT 10/09/17 14:05 IMPRESSION: NORMAL CT OF THE CHEST WITH IV CONTRAST. Markedly fatty liver. No acute post traumatic changes. Head CT 10/09/17 14:08 IMPRESSION: NORMAL BRAIN CT WITHOUT CONTRAST. EVIDENCE OF ACUTE STROKE: NO. Tibia/Fibula X-Ray 10/09/17 14:08 IMPRESSION: NEGATIVE STUDY OF THE RIGHT TIBIA AND FIBULA. NO RADIOGRAPHIC EVIDENCE OF ACUTE INJURY. Assessment & Plan - Diagnosis (1) Chest pain Qualifiers: Chest pain type: unspecified Qualified Code(s): R07.9 - Chest pain, unspecified Is this a current diagnosis for this admission?: Yes Plan: Patient presented with substernal chest pain radiating to his back associated with nausea, dyspnea, and diaphoresis. Multiple etiologies are considered; musculoskeletal secondary to recent fall from an elevated surface approximately 10 feet, ACS, pulmonary embolism, dissection, anxiety/palpitations related to alcohol withdrawal, medication seeking. Heart score 4; moderate risk. EKG demonstrated a new left fascicular block, new compared to 2016. Initial troponins 0.018, 0.029. He is admitted to the medical floor on continuous cardiac telemetry. We will continue to trend troponins. Obtain echocardiogram. Nuclear stress test tentatively ordered for the morning. Cardiology has been consulted. We will rule out PE and further evaluate for dissection with a stat contrasted CT of the chest. Supplemental oxygen as needed to maintain oxygen saturations greater than 88%. Nitroglycerin tabs 3 as needed for chest pain. IV morphine as needed for unresolved chest pain. Remaining plan as outlined elsewhere. (2) Alcohol withdrawal Qualifiers: Complication of substance-induced condition: uncomplicated Qualified Code(s ): F10.230 - Alcohol dependence with withdrawal, uncomplicated Is this a current diagnosis for this admission?: Yes Plan: The patient reports that he drinks 3-4 beers daily. Last alcohol intake approximately 48 hours ago. He denies a history of alcohol withdrawal or seizures. Urine drug screen is negative. Serum alcohol he will be monitored on continuous cardiac telemetry. He is provided <10. P.o. Valium 5 mg every 6 hours. IV Ativan 2 mg every 2 hours as needed for anxiety/agitation/withdrawal symptoms. Fall, seizure, aspiration precautions. (3) Abnormal LFTs Is this a current diagnosis for this admission?: Yes Plan: Likely secondary to alcohol abuse. CT of the abdomen revealed markedly fatty liver; no cholelithiasis was identified. Lipase is mildly elevated at 342 MELD score 14 Supportive care. Gentle IV fluids. We will monitor serial chemistries, PT/INR, and reassess lipase in the morning. (4) Gastroesophageal reflux disease Qualifiers: Esophagitis presence: esophagitis presence not specified Qualified Code(s) : K21.9 - Gastro-esophageal reflux disease without esophagitis Is this a current diagnosis for this admission?: Yes Plan: PPI therapy twice daily. (5) Hypertension Qualifiers: Hypertension type: essential hypertension Qualified Code(s): I10 - Essential (primary) hypertension Is this a current diagnosis for this admission?: Yes Plan: The patient reports a history of hypertension but is not on home medications. Slightly elevated blood pressures at present could be related to pain and alcohol withdrawal. IV hydralazine as needed for blood pressure control. We will monitor blood pressures and initiate antihypertensives as necessary. (6) Alcohol abuse Is this a current diagnosis for this admission?: Yes Plan: With continuous use. Plan as above. network planner is consulted to assess for needs. - Time Time Spent: 50 to 70 Minutes Medications reviewed and adjusted accordingly: Yes Anticipated discharge: Home - Inpatient Certification Based on my medical assessment, after consideration of the patient's comorbidities, presenting symptoms, or acuity I expect that the services needed warrant INPATIENT care.: Yes I certify that my determination is in accordance with my understanding of Medicare's requirements for reasonable and necessary INPATIENT services [42 CFR 412.3e].: Yes Medical Necessity: Need For IV Fluids, Need For Continuous Telemetry Monitoring
[2017-10-09] MEDS: DIAZEPAM 5 MG TABLET PO SCH (20:25)
[2017-10-09] MEDS: ATORVASTATIN CALCIUM 80 MG TABLET PO SCH (21:34)
[2017-10-09] MEDS: HEPARIN SOD (PORCINE) 5,000 UNIT/ML 1 ML SYRINGE SUBCUT SCH (21:39)
--- NOTE | 2017-10-10 | EKG REPORT ---
SEVERITY:- ABNORMAL ECG - SINUS TACHYCARDIA ATRIAL PREMATURE COMPLEX LAD, CONSIDER LEFT ANTERIOR FASCICULAR BLOCK CONSIDER ANTERIOR INFARCT : Confirmed by: Maday Anaya MD 09-Oct-2017 23:58:14
[2017-10-10] MEDS: DIAZEPAM 5 MG TABLET PO SCH ×5 (01:29→23:57)
[2017-10-10] MEDS: MORPHINE SULFATE 10 MG/ML INJ IV PRN ×3 (01:29→21:47)
[2017-10-10 05:13] LABS: INTERNATIONAL RATION (INR) 1.43; PROTHROMBIN TIME 18.2 SEC (11.4-15.4)
[2017-10-10 05:19] LABS: HEMATOCRIT 36.1 % (37.9-51.0); MEAN CORPUSCULAR HEMOGLOBIN 33.8 pg (27.0-33.4); MEAN CORPUSCULAR HGB CONC 35.2 g/dL (32.0-36.0); MEAN CORPUSCULAR VOLUME 96 fl (80-97); RED BLOOD COUNT 3.76 10^6/uL (4.35-5.55); RED CELL DISTRIBUTION WIDTH 14.1 % (11.5-14.0)
[2017-10-10 05:21] LABS: WHITE BLOOD COUNT 2.2 10^3/uL (4.0-10.5)
[2017-10-10 05:24] LABS: HEMOGLOBIN 12.7 g/dL (13.5-17.0)
[2017-10-10 05:30] LABS: ALANINE AMINOTRANSFERASE 63 U/L (21-72); ALBUMIN 3.2 g/dL (3.5-5.0); ALKALINE PHOSPHATASE 59 U/L (38-126); ANION GAP 11 (5-19); ASPARTATE AMINO TRANSFERASE 124 U/L (17-59); BILIRUBIN,DIRECT 0.7 mg/dL (0.0-0.4); BILIRUBIN,TOTAL 2.5 mg/dL (0.2-1.3); BLOOD UREA NITROGEN 9 mg/dL (7-20); CALCIUM 8.3 mg/dL (8.4-10.2); CARBON DIOXIDE 25 mmol/L (22-30); CHLORIDE 104 mmol/L (98-107); CHOLESTEROL 118.11 mg/dL (0-200); CREATINE KINASE 188 U/L (55-170); GLUCOSE 94 mg/dL (75-110); LIPASE 346.1 U/L (23-300); POTASSIUM 3.4 mmol/L (3.6-5.0); SODIUM 140.4 mmol/L (137-145); TRIGLYCERIDES 73 mg/dL (<150)
[2017-10-10 05:34] LABS: PLATELET COUNT 31 10^3/uL (150-450)
[2017-10-10 05:41] LABS: DIRECT LDL 82 mg/dL (<100)
[2017-10-10] MEDS: LANSOPRAZOLE 30 MG TAB.RAP.DR PO SCH ×2 (05:52→17:27)
[2017-10-10] MEDS: HEPARIN SOD (PORCINE) 5,000 UNIT/ML 1 ML SYRINGE SUBCUT SCH ×3 (05:52→21:30)
[2017-10-10] MEDS: ASPIRIN 81 MG TABLET, ENT COATED PO SCH (09:32)
[2017-10-10] MEDS: DOCUSATE SODIUM 100 MG CAPSULE PO SCH (09:32)
[2017-10-10] MEDS: NORMAL SALINE 1000 ML 1,000 ML IV PRN ×2 (09:37→17:33)
--- NOTE | 2017-10-10 17:02 | PDOC PROGRESS REPORT ---
Subjective Progress Note for:: 10/10/17 Subjective:: Mr. Mohr is a 62 years old male patient with past medical history of hypertension, hyperlipidemia, gastroesophageal reflux disease and alcohol dependence presents with chief complaint of chest pain. History set of cardiac enzymes are negative and stress test could not be done because of ongoing chest pain. Patient is put on alcohol withdrawal protocol with Ativan 2 mg IV every 12 hours as needed and diazepam 10 mg p.o. every 6 hours scheduled. Reason For Visit: CHEST PAIN, ETOH WITHDRAWAL, ELEVATED LFTS Physical Exam Vital Signs: Temp Pulse Resp BP Pulse Ox 98.3 F 68 16 120/72 95 10/10/17 15:07 10/10/17 15:07 10/10/17 15:07 10/10/17 15:07 10/10/17 15:07 Intake & Output 10/09/17 10/10/17 10/11/17 06:59 06:59 06:59 Intake Total 1000 Output Total 100 Balance 900 Weight 79.9 kg General appearance: PRESENT: mild distress Head exam: PRESENT: atraumatic Eye exam: PRESENT: conjunctiva pink Mouth exam: PRESENT: moist Neck exam: ABSENT: carotid bruit, JVD, lymphadenopathy, thyromegaly Respiratory exam: PRESENT: clear to auscultation rogelio. ABSENT: rales, rhonchi, wheezes Cardiovascular exam: PRESENT: RRR. ABSENT: diastolic murmur, rubs, systolic murmur GI/Abdominal exam: PRESENT: normal bowel sounds, soft. ABSENT: distended, guarding, mass, organolmegaly, rebound, tenderness Neurological exam: PRESENT: alert, awake, oriented to time, oriented to situation Psychiatric exam: PRESENT: normal mood Results Laboratory Results: 10/10/17 04:20 10/10/17 04:20 10/10/17 10/10/17 04:20 04:20 WBC 2.2 L D RBC 3.76 L Hgb 12.7 L D Hct 36.1 L MCV 96 MCH 33.8 H MCHC 35.2 RDW 14.1 H Plt Count 31 L Sodium 140.4 Potassium 3.4 L Chloride 104 Carbon Dioxide 25 Anion Gap 11 BUN 9 Creatinine 0.56 Est GFR ( Amer) > 60 Est GFR (Non-Af Amer) > 60 Glucose 94 Calcium 8.3 L Total Bilirubin 2.5 H AST 124 H ALT 63 Alkaline Phosphatase 59 Total Protein 7.0 Albumin 3.2 L Triglycerides 73 Cholesterol 118.11 LDL Cholesterol Direct 82 VLDL Cholesterol 15.0 HDL Cholesterol 22 L Lipase 346.1 H 10/09/17 10/10/17 10/10/17 22:50 04:20 04:20 Creatine Kinase 188 H Troponin I 0.027 0.022 Impressions: Chest X-Ray 10/09/17 13:14 IMPRESSION: NO ACUTE RADIOGRAPHIC FINDING IN THE CHEST. KUB X-Ray 10/09/17 13:15 IMPRESSION: NO RADIOGRAPHIC EVIDENCE FOR ACUTE ABDOMINAL DISEASE. Abdomen/Pelvis CT 10/09/17 14:05 IMPRESSION: NORMAL CT OF THE CHEST WITH IV CONTRAST. Markedly fatty liver. No acute post traumatic changes. Chest CT 10/09/17 14:05 IMPRESSION: NORMAL CT OF THE CHEST WITH IV CONTRAST. Markedly fatty liver. No acute post traumatic changes. Head CT 10/09/17 14:08 IMPRESSION: NORMAL BRAIN CT WITHOUT CONTRAST. EVIDENCE OF ACUTE STROKE: NO. Tibia/Fibula X-Ray 10/09/17 14:08 IMPRESSION: NEGATIVE STUDY OF THE RIGHT TIBIA AND FIBULA. NO RADIOGRAPHIC EVIDENCE OF ACUTE INJURY. Assessment & Plan - Diagnosis (1) Chest pain Qualifiers: Chest pain type: other chest pain Qualified Code(s): R07.89 - Other chest pain; R07.8 - Other chest pain Is this a current diagnosis for this admission?: Yes Plan: Patient is on Nitrostat therapy medications. The pain is precipitated by changing positions. Most likely related to the trauma he sustained at this time he fell down (2) Elevated liver chemistry Is this a current diagnosis for this admission?: Yes Plan: Most probably related to alcohol consumption (3) Thrombocytopenia Is this a current diagnosis for this admission?: Yes Plan: Related to chronic alcohol consumption. (4) GERD (gastroesophageal reflux disease) Is this a current diagnosis for this admission?: Yes Plan: On PPI (5) Status post fall Is this a current diagnosis for this admission?: Yes Plan: Supportive treatment (6) Hypertension Qualifiers: Hypertension type: essential hypertension Qualified Code(s): I10 - Essential (primary) hypertension Is this a current diagnosis for this admission?: Yes Plan: Continue current regimen (7) Hyperlipidemia Qualifiers: Hyperlipidemia type: unspecified Qualified Code(s): E78.5 - Hyperlipidemia , unspecified Is this a current diagnosis for this admission?: Yes Plan: Continue statin
[2017-10-10] MEDS ORDERED: PANTOPRAZOLE SODIUM 40 MG VIAL IV ONE (17:15)
[2017-10-10] MEDS: PANTOPRAZOLE SODIUM 40 MG VIAL IV SCH ×2 (17:28→21:43)
--- NOTE | 2017-10-10 18:12 | XCELERA REPORT ---
[address] [place] [address] Transthoracic Echocardiogram Report Name: JING BONILLA Age: 62 yrs Gender: Male : 1955 Patient Status: Inpatient Patient Location: [address] [place], [place] [address] Study Date: 10/10/2017 08:19 AM Height: 69 in Weight: 176 lb BSA: 2.0 m2 Procedure: A complete two-dimensional transthoracic echocardiogram was performed (2D, M-mode, spectral and color flow Doppler). The study was technically adequate with some images being suboptimal in quality. Reason For Study: chest pain Ordering Physician: KATEY AG Performed By: Kianna Thacker Interpretation Summary The left ventricular ejection fraction is normal. There is borderline concentric left ventricular hypertrophy. The left ventricle is grossly normal size. Doppler measurements suggest pseudonormalized left ventricular relaxation, which is associated with grade II/IV or mild to moderate diastolic dysfunction Wall motion cannot be accurately commented on, but no definite regional wall motion abnormalities noted. Borderline right ventricular enlargement. The right ventricular systolic function is normal. The right atrium is normal. The left atrial size is normal. There is a trace amount of mitral regurgitation There is no mitral valve stenosis. No aortic regurgitation is present. There is no aortic valve stenosis There is a trace or physiologic amount of tricuspid regurgitation Tricuspid regurgitation jet envelope not well defined to measure RV systolic pressure accurately. The aortic root is not well visualized but is probably normal size. The inferior vena cava was not well visualized There is no pericardial effusion. MMode/2D Measurements & Calculations RVDd: 3.4 cm LVIDd: 4.6 cm FS: 26.3 % Ao root diam: 3.3 cm IVSd: 0.88 cm LVIDs: 3.4 cm EDV(Teich): 98.3 ml LVPWd: 0.98 cmESV(Teich): 47.7 ml Ao root area: 8.4 cm2 EF(Teich): 51.5 % LA dimension: 3.3 cm LVOT diam: 2.0 cm LVOT area: 3.2 cm2 Doppler Measurements & Calculations MV E max albert: MV dec slope: Ao V2 max: LV V1 max P.2 cm/sec 302.0 cm/sec2 100.4 cm/sec 3.1 mmHg MV A max albert: MV dec time: Ao max PG: LV V1 max: 88.7 cm/sec 0.28 sec 4.0 mmHg 87.7 cm/sec MV E/A: 0.95 TERESITA(V,D): 2.8 cm2 TR max albert: 75.9 cm/sec TR max P.3 mmHg Left Ventricle The left ventricle is grossly normal size. There is borderline concentric left ventricular hypertrophy. The left ventricular ejection fraction is normal. Doppler measurements suggest pseudonormalized left ventricular relaxation, which is associated with grade II/IV or mild to moderate diastolic dysfunction. Wall motion cannot be accurately commented on, but no definite regional wall motion abnormalities noted. Right Ventricle Borderline right ventricular enlargement. There is normal right ventricular wall thickness. The right ventricular systolic function is normal. Atria The right atrium is normal. The left atrial size is normal. Interarterial septum not well visualized and not well dopplered. Cannot comment on ASD/PFO presence. Mitral Valve The mitral valve is grossly normal. There is no mitral valve stenosis. There is a trace amount of mitral regurgitation. Aortic Valve The aortic valve is not well visualized secondary to technical limitations. There is no aortic valve stenosis. No aortic regurgitation is present. Tricuspid Valve The tricuspid valve is not well visualized, but is grossly normal. There is no tricuspid stenosis. There is a trace or physiologic amount of tricuspid regurgitation. Tricuspid regurgitation jet envelope not well defined to measure RV systolic pressure accurately. Pulmonic Valve The pulmonic valve is not well visualized. Great Vessels The aortic root is not well visualized but is probably normal size. The inferior vena cava was not well visualized. Effusions There is no pericardial effusion. : KATEY AG > Tobi Rodriguez
--- NOTE | 2017-10-10 19:56 | PDOC CONSULTATION ---
Consultation Consult Date: 10/09/17 Attending physician:: ROSHAN ARCOS Consult reason:: Chest pain History of Present Illness Admission Date/PCP: 10/09/17 18:39 Patient complains of: Chest pain History of Present Illness: JING BONILLA is a 62 year old male with a past medical history of hypertension, alcohol abuse with continuous use, an who presented to the emergency department today with a complaint of sudden onset chest pain that woke him from sleep. His pain is described as d GERD midsternal radiating to his back and worsened by activity, relieved by lying in a left lateral recumbent position. He reports that his pain is associated with slight dyspnea diaphoresis. He did have an episode of nausea with vomiting earlier today. He also reports that approximately 3 days ago, the patient fell approximately 10 feet landing on his back and now has upper back pain, mid abdominal pain and suprapubic pain. He denies loss of consciousness. Following his fall, he decided that he needed to stop drinking alcohol and abruptly ceased all alcohol consumption. His last alcohol intake was 10/07/17. He denies a history of alcohol withdrawal or seizure. Evaluation in the emergency department reveals essentially normal imaging including a head CT, noncontrasted CT of the chest, abdomen, and pelvis, normal chest x-ray, KUB, and right tibia/fibula. EKG reveals sinus tachycardia with left anterior fascicular block which is changed from previous EKG in 2016 which showed normal sinus rhythm. Initial troponin is 0.018, follow-up is indeterminately elevated at 0.029. The patient does continue to complain of intermittent chest pain associated with dyspnea. Laboratory evaluation reveals thrombocytopenia (47), elevated PT/INR (16.8/1.30) and an elevated d-dimer (1.14 ), elevated LFTs, mildly elevated lipase (342) urinalysis suggestive of dehydration and a normal tox screen. The patient is referred to the hospitalist service for observational admission and chest pain rule out. Above history obtained by the hospitalist was reviewed and confirmed. Patient was seen this morning. He could not add much to the history. Past Medical History Cardiac Medical History: Reports: Hyperlipidema, Hypertension Denies: Congestive Heart Failure, Myocardial Infarction Pulmonary Medical History: Reports: None EENT Medical History: Reports: None Neurological Medical History: Reports: None Endocrine Medical History: Reports: None Renal/ Medical History: Reports: None Malignancy Medical History: Reports: None GI Medical History: Reports: Gastroesophageal Reflux Disease - PPI dependent Musculoskeltal Medical History: Reports: Arthritis Skin Medical History: Reports: None Psychiatric Medical History: Reports: Alcohol Dependency Denies: Substance Abuse, Tobacco Dependency Traumatic Medical History: Reports: None Hematology: Reports: None Infectious Medical History: Reports: None Past Surgical History Past Surgical History: Reports: Appendectomy, Orthopedic Surgery Social History Information Source: Patient Lives with: Alone Smoking Status: Never Smoker Frequency of Alcohol Use: Heavy Hx Recreational Drug Use: Yes - in recovery Drugs: None Hx Prescription Drug Abuse: No - Advance Directive Resuscitation Status: Full Code Surrogate healthcare decision maker:: Surrogate decision maker is Jo Ann Conroy Family History Family History: Reviewed & Not Pertinent, Arthritis, Hypertension Parental Family History Reviewed: Yes Children Family History Reviewed: Yes Sibling(s) Family History Reviewed.: Yes Medication/Allergy Home Medications: Tramadol HCl [Ultram 50 mg Tablet] 50 mg PO Q6HP PRN 10/09/17 Allergies/Adverse Reactions: amoxicillin [Amoxicillin] Allergy (Unknown, Verified 10/09/17 12:34) ampicillin [Ampicillin] Allergy (Unknown, Verified 10/09/17 12:34) ceftriaxone sodium [From Rocephin] Allergy (Unknown, Verified 10/09/17 12:34) Cephalosporins Allergy (Unknown, Verified 10/09/17 12:34) Penicillins Allergy (Unknown, Verified 10/09/17 12:34) tetracycline [Tetracycline] Allergy (Unknown, Verified 10/09/17 12:34) Review of Systems Review of Systems: Please see history of present illness and past medical history as wall. Constitutional: No fever or chills reported. Head : No recent chronic headaches, recent head injury. Eyes: No recent eye pain, diplopia, redness, discharge, acute visual changes. Ears: No recent chronic ear pain, acute hearing loss, ear discharge. Oral cavity: No recent ulcerations, bleeding, oral cavity discomfort. Neck: No recent acute neck pain reported. Hematologic: No recent easy bruising or bleeding. Lymphatic: No recent lymph node enlargement reported. Cardiovascular system review: See history of present illness. Respiratory system review: No hemoptysis or blood clots in the lungs reported. Mild Shortness of breath on exertion Gastrointestinal system review: Negative for any recent acute hematemesis, melena. Genitourinary system review: No recent acute or chronic hematuria, flank pain, UTI etc. reported. Skin system review: Negative for any recent abnormal bruising, no rash, no pruritus reported. Neurologic: No prior history of strokes, mini strokes, seizure disorder. Psychologic: No history of major psychosis or major depression reported. History of minor depression reported Musculoskeletal: Minor aches and pains reported. No acute joint swelling reported. Endocrine: No recent polyuria, polydipsia, recent heat or cold intolerance. Physical Exam Vital Signs: Temp Pulse Resp BP Pulse Ox 98.0 F 115 H 15 137/79 H 100 10/09/17 19:50 10/09/17 12:45 10/09/17 19:50 10/09/17 19:50 10/09/17 19:50 Exam: GENERAL: well-nourished and in no acute distress. Alert and oriented x3 HEAD: Atraumatic, normocephalic. EYES: Pupils equal round and reactive to light, extraocular movements intact, sclera anicteric, conjunctiva are normal. ENT: TMs normal, nares patent, oropharynx clear without exudates. Moist mucous membranes. No oral ulcerations or bleeding gums noted NECK: supple without lymphadenopathy. Trachea is central. No cervical or axillary lymphadenopathy noted. Carotids are 2+, JVD WNL LUNGS: Respiration seems nonlabored, no significant accessory muscle action noted. Breath sounds clear to auscultation bilaterally and equal noted. No wheezes rales or rhonchi noted. No significant dullness noted on percussion. CHEST: Palpation of the chest wall shows no significant chest wall tenderness. HEART: [place] HAND SANDER, No PSH, 1/6 MINGO aortic area, 1/6 thakur systolic murmur mitral area, no rubs, no gallops. ABDOMEN: Soft, epigastric tenderness appreciated, normoactive bowel sounds. No guarding, no rebound. No rigidity noted . No masses appreciated. EXTREMITIES: Pedal pulses are 1-2+, no calf tenderness noted. No clubbing or cyanosis. negative pedal edema noted NEUROLOGICAL: Focused neurological exam showed no significant neurologic deficit. Normal speech, no focal weakness appreciated. PSYCH: Normal mood, normal affect. Judgment and insight within normal limits. SKIN: No significant ecchymosis, skin is noted to be warm. MUSCULOSKELETAL EXAM: No significant acute joint swelling noted. Results EKG Comments: Sinus rhythm, no acute ST-T wave changes noted. Intermittent right bundle branch block QRS noted. Impressions: Chest X-Ray 10/09/17 13:14 IMPRESSION: NO ACUTE RADIOGRAPHIC FINDING IN THE CHEST. KUB X-Ray 10/09/17 13:15 IMPRESSION: NO RADIOGRAPHIC EVIDENCE FOR ACUTE ABDOMINAL DISEASE. Abdomen/Pelvis CT 10/09/17 14:05 IMPRESSION: NORMAL CT OF THE CHEST WITH IV CONTRAST. Markedly fatty liver. No acute post traumatic changes. Chest CT 10/09/17 14:05 IMPRESSION: NORMAL CT OF THE CHEST WITH IV CONTRAST. Markedly fatty liver. No acute post traumatic changes. Head CT 10/09/17 14:08 IMPRESSION: NORMAL BRAIN CT WITHOUT CONTRAST. EVIDENCE OF ACUTE STROKE: NO. Tibia/Fibula X-Ray 10/09/17 14:08 IMPRESSION: NEGATIVE STUDY OF THE RIGHT TIBIA AND FIBULA. NO RADIOGRAPHIC EVIDENCE OF ACUTE INJURY. Assessment & Plan - Diagnosis (1) Chest pain Qualifiers: Chest pain type: unspecified Qualified Code(s): R07.9 - Chest pain, unspecified Is this a current diagnosis for this admission?: Yes (2) Elevated lipase Is this a current diagnosis for this admission?: Yes (3) Alcohol abuse Is this a current diagnosis for this admission?: Yes (4) Alcohol withdrawal Qualifiers: Complication of substance-induced condition: uncomplicated Qualified Code(s ): F10.230 - Alcohol dependence with withdrawal, uncomplicated Is this a current diagnosis for this admission?: Yes (5) Elevated liver chemistry Is this a current diagnosis for this admission?: Yes (6) GERD (gastroesophageal reflux disease) Is this a current diagnosis for this admission?: Yes (7) Hyperlipidemia Qualifiers: Hyperlipidemia type: unspecified Qualified Code(s): E78.5 - Hyperlipidemia , unspecified Is this a current diagnosis for this admission?: Yes (8) Hypertension Qualifiers: Hypertension type: essential hypertension Qualified Code(s): I10 - Essential (primary) hypertension Is this a current diagnosis for this admission?: Yes - Notes Notes: Chest pain: Agree that patient will benefit from nuclear stress test, this was actually scheduled. Patient is also noted to have epigastric tenderness. Have placed patient on Protonix IV 40 mg p.o. twice daily. Once patient chest pain- free, schedule patient for a nuclear stress test. Further risk stratification, will also order a 2D echo. Patient will benefit from abstinence from alcohol. Elevated lipase: Possible mild grade pancreatitis from history of alcohol abuse. Alcohol withdrawal: Treat with beta-blockers and benzodiazepines. Replace vitamin B1. Gastroesophageal reflux: Recommend double dose proton pump inhibitor. Patient could have gastritis. Hyperlipidemia: Recommend statin therapy. Hypertension: Currently blood pressure stable. Beta-blockers preferred in presence of alcohol withdrawal. Could also use clonidine if needed. - Time Time Spent: 30 to 50 Minutes - CODE STATUS was discussed, patient remains full code. Surrogate decision-maker unchanged. Multiple medical problems were addressed. More than 50% of the time spent coordinating care, discussing management plans with involved caregivers. Management plans discussed with involved personnels. Medical decision making was of moderate to high complexity , patient's has multiple comorbidities. Medications reviewed and adjusted accordingly: Yes
[2017-10-10] MEDS: ATORVASTATIN CALCIUM 80 MG TABLET PO SCH (21:39)
[2017-10-10] MEDS: LORAZEPAM INJ 2 MG/1 ML VIAL IV PRN (21:43)
[2017-10-11] MEDS: HEPARIN SOD (PORCINE) 5,000 UNIT/ML 1 ML SYRINGE SUBCUT SCH ×3 (05:50→21:44)
[2017-10-11] MEDS: LANSOPRAZOLE 30 MG TAB.RAP.DR PO SCH ×2 (06:29→16:38)
[2017-10-11] MEDS: DIAZEPAM 5 MG TABLET PO SCH ×4 (06:29→23:33)
[2017-10-11] MEDS: NORMAL SALINE 1000 ML 1,000 ML IV PRN ×4 (06:29→23:33)
[2017-10-11] MEDS: PANTOPRAZOLE SODIUM 40 MG VIAL IV SCH ×2 (09:30→21:46)
[2017-10-11] MEDS: DOCUSATE SODIUM 100 MG CAPSULE PO SCH (09:30)
[2017-10-11] MEDS: ASPIRIN 81 MG TABLET, ENT COATED PO SCH (09:30)
[2017-10-11 12:15] LABS: CREATINE KINASE MB 1.22 ng/mL (<4.55); NT PRO BNP 191 pg/mL (5-900)
[2017-10-11 12:20] LABS: TROPONIN I < 0.012 ng/mL
--- NOTE | 2017-10-11 13:16 | PDOC PROGRESS REPORT ---
Subjective Progress Note for:: 10/11/17 Subjective:: I seen patient resting in bed. Patient still is complaining of chest pain and his stress test is postponed for tomorrow by Dr. Rodriguez. Reason For Visit: CHEST PAIN, ETOH WITHDRAWAL, ELEVATED LFTS Physical Exam Vital Signs: Temp Pulse Resp BP Pulse Ox 98.2 F 76 17 126/78 H 98 10/11/17 10:59 10/11/17 10:59 10/11/17 10:59 10/11/17 10:59 10/11/17 10:59 Intake & Output 10/10/17 10/11/17 10/12/17 06:59 06:59 06:59 Intake Total 2000 2357 1000 Output Total 100 1575 Balance 3978 798 7755 Weight 79.9 kg 83.9 kg General appearance: PRESENT: no acute distress Head exam: PRESENT: atraumatic Eye exam: PRESENT: conjunctiva pink Mouth exam: PRESENT: moist Cardiovascular exam: PRESENT: RRR. ABSENT: diastolic murmur, rubs, systolic murmur Pulses: PRESENT: normal dorsalis pedis pul GI/Abdominal exam: PRESENT: normal bowel sounds, soft. ABSENT: distended, guarding, mass, organolmegaly, rebound, tenderness Extremities exam: PRESENT: full ROM. ABSENT: calf tenderness, clubbing, pedal edema Neurological exam: PRESENT: alert, awake, oriented to time, oriented to situation Psychiatric exam: PRESENT: normal mood Results Laboratory Results: 10/10/17 04:20 10/10/17 04:20 10/09/17 10/10/17 10/10/17 22:50 04:20 04:20 Creatine Kinase 188 H CK-MB (CK-2) Troponin I 0.027 0.022 NT-Pro-B Natriuret Pep 10/11/17 11:18 Creatine Kinase CK-MB (CK-2) 1.22 Troponin I < 0.012 NT-Pro-B Natriuret Pep 191 Impressions: Chest X-Ray 10/09/17 13:14 IMPRESSION: NO ACUTE RADIOGRAPHIC FINDING IN THE CHEST. KUB X-Ray 10/09/17 13:15 IMPRESSION: NO RADIOGRAPHIC EVIDENCE FOR ACUTE ABDOMINAL DISEASE. Abdomen/Pelvis CT 10/09/17 14:05 IMPRESSION: NORMAL CT OF THE CHEST WITH IV CONTRAST. Markedly fatty liver. No acute post traumatic changes. Chest CT 10/09/17 14:05 IMPRESSION: NORMAL CT OF THE CHEST WITH IV CONTRAST. Markedly fatty liver. No acute post traumatic changes. Head CT 10/09/17 14:08 IMPRESSION: NORMAL BRAIN CT WITHOUT CONTRAST. EVIDENCE OF ACUTE STROKE: NO. Tibia/Fibula X-Ray 10/09/17 14:08 IMPRESSION: NEGATIVE STUDY OF THE RIGHT TIBIA AND FIBULA. NO RADIOGRAPHIC EVIDENCE OF ACUTE INJURY. Assessment & Plan - Diagnosis (1) Chest pain Qualifiers: Chest pain type: other chest pain Qualified Code(s): R07.89 - Other chest pain; R07.8 - Other chest pain Is this a current diagnosis for this admission?: Yes Plan: Scheduled for stress test tomorrow (2) Elevated liver chemistry Is this a current diagnosis for this admission?: Yes Plan: Most probably related to alcohol consumption (3) Thrombocytopenia Is this a current diagnosis for this admission?: Yes Plan: Related to chronic alcohol consumption. (4) GERD (gastroesophageal reflux disease) Is this a current diagnosis for this admission?: Yes Plan: On PPI (5) Status post fall Is this a current diagnosis for this admission?: Yes Plan: Supportive treatment (6) Hypertension Qualifiers: Hypertension type: essential hypertension Qualified Code(s): I10 - Essential (primary) hypertension Is this a current diagnosis for this admission?: Yes Plan: Continue current regimen (7) Hyperlipidemia Qualifiers: Hyperlipidemia type: unspecified Qualified Code(s): E78.5 - Hyperlipidemia , unspecified Is this a current diagnosis for this admission?: Yes Plan: Continue statin
--- NOTE | 2017-10-11 15:26 | PDOC PROGRESS REPORT ---
Subjective Progress Note for:: 10/10/17 Subjective:: Patient was noted to have chest pain on morning rounds. Nuclear stress test was therefore canceled per protocol. Patient to be rescheduled for the next day. Patient however looked comfortable. He seems to be just in mild alcohol withdrawal. Reason For Visit: CHEST PAIN, ETOH WITHDRAWAL, ELEVATED LFTS Physical Exam Vital Signs: Temp Pulse Resp BP Pulse Ox 98.2 F 77 17 126/78 H 98 10/11/17 10:59 10/11/17 14:00 10/11/17 10:59 10/11/17 10:59 10/11/17 10:59 Intake & Output 10/10/17 10/11/17 10/12/17 06:59 06:59 06:59 Intake Total 2000 2357 1000 Output Total 100 1575 Balance 5040 246 2028 Weight 79.9 kg 83.9 kg Exam: GENERAL: well-nourished and in no acute distress. Alert and oriented x3 HEAD: Atraumatic, normocephalic. EYES: Pupils equal round and reactive to light, extraocular movements intact, sclera anicteric, conjunctiva are normal. ENT: TMs normal, nares patent, oropharynx clear without exudates. Moist mucous membranes. No oral ulcerations or bleeding gums noted NECK: supple without lymphadenopathy. Trachea is central. No cervical or axillary lymphadenopathy noted. Carotids are 2+, JVD WNL LUNGS: Respiration seems nonlabored, no significant accessory muscle action noted. Breath sounds clear to auscultation bilaterally and equal noted. No wheezes rales or rhonchi noted. No significant dullness noted on percussion. CHEST: Palpation of the chest wall shows mild chest wall tenderness. 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 ABDOMEN: Soft, epigastric tenderness appreciated, normoactive bowel sounds. No guarding, no rebound. No rigidity noted . No masses appreciated. EXTREMITIES: Pedal pulses are 1-2+, no calf tenderness noted. No clubbing or cyanosis. negative pedal edema noted NEUROLOGICAL: Focused neurological exam showed no significant neurologic deficit. Normal speech, no focal weakness appreciated. PSYCH: Normal mood, normal affect. Judgment and insight within normal limits. SKIN: No significant ecchymosis, skin is noted to be warm. MUSCULOSKELETAL EXAM: No significant acute joint swelling noted. Results Laboratory Results: 10/10/17 04:20 10/10/17 04:20 10/09/17 10/10/17 10/10/17 22:50 04:20 04:20 Creatine Kinase 188 H CK-MB (CK-2) Troponin I 0.027 0.022 NT-Pro-B Natriuret Pep 10/11/17 11:18 Creatine Kinase CK-MB (CK-2) 1.22 Troponin I < 0.012 NT-Pro-B Natriuret Pep 191 EKG Comments: Telemetry shows sinus rhythm without any acute ST-T wave changes. EKG shows sinus rhythm no acute ST-T wave changes noted Impressions: Chest X-Ray 10/09/17 13:14 IMPRESSION: NO ACUTE RADIOGRAPHIC FINDING IN THE CHEST. KUB X-Ray 10/09/17 13:15 IMPRESSION: NO RADIOGRAPHIC EVIDENCE FOR ACUTE ABDOMINAL DISEASE. Abdomen/Pelvis CT 10/09/17 14:05 IMPRESSION: NORMAL CT OF THE CHEST WITH IV CONTRAST. Markedly fatty liver. No acute post traumatic changes. Chest CT 10/09/17 14:05 IMPRESSION: NORMAL CT OF THE CHEST WITH IV CONTRAST. Markedly fatty liver. No acute post traumatic changes. Head CT 10/09/17 14:08 IMPRESSION: NORMAL BRAIN CT WITHOUT CONTRAST. EVIDENCE OF ACUTE STROKE: NO. Tibia/Fibula X-Ray 10/09/17 14:08 IMPRESSION: NEGATIVE STUDY OF THE RIGHT TIBIA AND FIBULA. NO RADIOGRAPHIC EVIDENCE OF ACUTE INJURY. Assessment & Plan - Diagnosis (1) Chest pain Qualifiers: Chest pain type: unspecified Qualified Code(s): R07.9 - Chest pain, unspecified Is this a current diagnosis for this admission?: Yes (2) Elevated lipase Is this a current diagnosis for this admission?: Yes (3) Alcohol abuse Is this a current diagnosis for this admission?: Yes (4) Alcohol withdrawal Qualifiers: Complication of substance-induced condition: uncomplicated Qualified Code(s ): F10.230 - Alcohol dependence with withdrawal, uncomplicated Is this a current diagnosis for this admission?: Yes (5) Elevated liver chemistry Is this a current diagnosis for this admission?: Yes (6) GERD (gastroesophageal reflux disease) Is this a current diagnosis for this admission?: Yes (7) Hyperlipidemia Qualifiers: Hyperlipidemia type: unspecified Qualified Code(s): E78.5 - Hyperlipidemia , unspecified Is this a current diagnosis for this admission?: Yes (8) Hypertension Qualifiers: Hypertension type: essential hypertension Qualified Code(s): I10 - Essential (primary) hypertension Is this a current diagnosis for this admission?: Yes - Notes Notes: Chest pain: Clinically felt to be atypical and possibly noncardiac. And reviewed showed coronary calcification, therefore agree that patient will benefit from nuclear stress test, this was actually rescheduled. Patient is also noted to have epigastric tenderness. Have placed patient on Protonix IV 40 mg p.o. twice daily. Further risk stratification, will also order a 2D echo. Patient will benefit from abstinence from alcohol. Elevated lipase: Possible mild grade pancreatitis from history of alcohol abuse. Alcohol withdrawal: Treat with beta-blockers and benzodiazepines. Replace vitamin B1. Gastroesophageal reflux: Recommend double dose proton pump inhibitor. Patient could have gastritis. Hyperlipidemia: Recommend statin therapy. Hypertension: Currently blood pressure stable. Beta-blockers preferred in presence of alcohol withdrawal. Could also use clonidine if needed. - Time Time with patient: 15-25 minutes - CODE STATUS was discussed, patient remains full code. Surrogate decision-maker unchanged. Multiple medical problems were addressed. More than 50% of the time spent coordinating care, discussing management plans with involved caregivers. Management plans discussed with involved personnels. Medical decision making was of moderate to high complexity , patient's has multiple comorbidities. Medications reviewed and adjusted accordingly: Yes
--- NOTE | 2017-10-11 15:30 | PDOC PROGRESS REPORT ---
Subjective Progress Note for:: 10/11/17 Subjective:: Patient was noted to have active ongoing chest pain while nuclear tech went to inject him for rest imaging. Nuclear stress test was therefore canceled per protocol. Patient to be rescheduled for the next day. Patient however looked comfortable. He seems to be just in mild alcohol withdrawal. Twelve-lead EKGs and cardiac enzymes reviewed. They are noted to be negative. Discussed with nuclear tech that if patient is having chest pain, it is often reasonable to inject them to determine because of chest pain ongoing at that time. Reason For Visit: CHEST PAIN, ETOH WITHDRAWAL, ELEVATED LFTS Physical Exam Vital Signs: Temp Pulse Resp BP Pulse Ox 98.2 F 77 17 126/78 H 98 10/11/17 10:59 10/11/17 14:00 10/11/17 10:59 10/11/17 10:59 10/11/17 10:59 Intake & Output 10/10/17 10/11/17 10/12/17 06:59 06:59 06:59 Intake Total 2000 2357 1000 Output Total 100 1575 Balance 9999 373 9261 Weight 79.9 kg 83.9 kg Exam: GENERAL: well-nourished and in no acute distress. Alert and oriented x3. Patient noted to be slightly anxious. HEAD: Atraumatic, normocephalic. EYES: Pupils equal round and reactive to light, extraocular movements intact, sclera anicteric, conjunctiva are normal. ENT: TMs normal, nares patent, oropharynx clear without exudates. Moist mucous membranes. No oral ulcerations or bleeding gums noted NECK: supple without lymphadenopathy. Trachea is central. No cervical or axillary lymphadenopathy noted. Carotids are 2+, JVD WNL LUNGS: Respiration seems nonlabored, no significant accessory muscle action noted. Breath sounds clear to auscultation bilaterally and equal noted. No wheezes rales or rhonchi noted. No significant dullness noted on percussion. CHEST: Palpation of the chest wall shows mild chest wall tenderness. HEART: [employer], No PSH, 1/6 MINGO aortic area, 1/6 thakur systolic murmur mitral area, no rubs, no gallops. ABDOMEN: Soft, mild epigastric tenderness appreciated, normoactive bowel sounds. No guarding, no rebound. No rigidity noted . No masses appreciated. EXTREMITIES: Pedal pulses are 1-2+, no calf tenderness noted. No clubbing or cyanosis. negative pedal edema noted NEUROLOGICAL: Focused neurological exam showed no significant neurologic deficit. Normal speech, no focal weakness appreciated. PSYCH: Normal mood, normal affect. Judgment and insight within normal limits. SKIN: No significant ecchymosis, skin is noted to be warm. MUSCULOSKELETAL EXAM: No significant acute joint swelling noted. Results Laboratory Results: 10/10/17 04:20 10/10/17 04:20 10/09/17 10/10/17 10/10/17 22:50 04:20 04:20 Creatine Kinase 188 H CK-MB (CK-2) Troponin I 0.027 0.022 NT-Pro-B Natriuret Pep 10/11/17 11:18 Creatine Kinase CK-MB (CK-2) 1.22 Troponin I < 0.012 NT-Pro-B Natriuret Pep 191 EKG Comments: Twelve-lead EKG shows sinus rhythm, no acute ST-T wave changes are noted. Impressions: Chest X-Ray 10/09/17 13:14 IMPRESSION: NO ACUTE RADIOGRAPHIC FINDING IN THE CHEST. KUB X-Ray 10/09/17 13:15 IMPRESSION: NO RADIOGRAPHIC EVIDENCE FOR ACUTE ABDOMINAL DISEASE. Abdomen/Pelvis CT 10/09/17 14:05 IMPRESSION: NORMAL CT OF THE CHEST WITH IV CONTRAST. Markedly fatty liver. No acute post traumatic changes. Chest CT 10/09/17 14:05 IMPRESSION: NORMAL CT OF THE CHEST WITH IV CONTRAST. Markedly fatty liver. No acute post traumatic changes. Head CT 10/09/17 14:08 IMPRESSION: NORMAL BRAIN CT WITHOUT CONTRAST. EVIDENCE OF ACUTE STROKE: NO. Tibia/Fibula X-Ray 10/09/17 14:08 IMPRESSION: NEGATIVE STUDY OF THE RIGHT TIBIA AND FIBULA. NO RADIOGRAPHIC EVIDENCE OF ACUTE INJURY. Assessment & Plan - Diagnosis (1) Chest pain Qualifiers: Chest pain type: unspecified Qualified Code(s): R07.9 - Chest pain, unspecified Is this a current diagnosis for this admission?: Yes (2) Elevated lipase Is this a current diagnosis for this admission?: Yes (3) Alcohol abuse Is this a current diagnosis for this admission?: Yes (4) Alcohol withdrawal Qualifiers: Complication of substance-induced condition: uncomplicated Qualified Code(s ): F10.230 - Alcohol dependence with withdrawal, uncomplicated Is this a current diagnosis for this admission?: Yes (5) Elevated liver chemistry Is this a current diagnosis for this admission?: Yes (6) GERD (gastroesophageal reflux disease) Is this a current diagnosis for this admission?: Yes (7) Hyperlipidemia Qualifiers: Hyperlipidemia type: unspecified Qualified Code(s): E78.5 - Hyperlipidemia , unspecified Is this a current diagnosis for this admission?: Yes (8) Hypertension Qualifiers: Hypertension type: essential hypertension Qualified Code(s): I10 - Essential (primary) hypertension Is this a current diagnosis for this admission?: Yes - Notes Notes: Chest pain: This is felt to be mostly noncardiac clinically however agreed that this test is indicated in view of presence of coronary calcification. This has been rescheduled for tomorrow. 2D echo shows normal LVEF. No significant valvular abnormalities were noted. This was discussed with the patient. Elevated lipase: Possible mild grade pancreatitis from history of alcohol abuse. Alcohol withdrawal: Treat with beta-blockers and benzodiazepines. Replace vitamin B1. Gastroesophageal reflux: Recommend double dose proton pump inhibitor. Patient could have gastritis. Hyperlipidemia: Recommend statin therapy. Hypertension: Currently blood pressure stable. Beta-blockers preferred in presence of alcohol withdrawal. Could also use clonidine if needed. - Time Time with patient: 15-25 minutes - CODE STATUS was discussed, patient remains full code. Surrogate decision-maker unchanged. Multiple medical problems were addressed. More than 50% of the time spent coordinating care, discussing management plans with involved caregivers. Management plans discussed with involved personnels. Medical decision making was of moderate to high complexity , patient's has multiple comorbidities. Medications reviewed and adjusted accordingly: Yes
[2017-10-11] MEDS: MORPHINE SULFATE 10 MG/ML INJ IV PRN (16:46)
[2017-10-11] MEDS: ATORVASTATIN CALCIUM 80 MG TABLET PO SCH (21:46)
[2017-10-11] MEDS: LORAZEPAM INJ 2 MG/1 ML VIAL IV PRN (21:49)
--- NOTE | 2017-10-12 03:05 | EKG REPORT ---
SEVERITY:- BORDERLINE ECG - SINUS RHYTHM BORDERLINE LEFT AXIS DEVIATION BORDERLINE T ABNORMALITIES, INFERIOR LEADS : Confirmed by: Maday Anaya MD 12-Oct-2017 03:04:34
[2017-10-12] MEDS: HEPARIN SOD (PORCINE) 5,000 UNIT/ML 1 ML SYRINGE SUBCUT SCH ×3 (05:43→21:29)
[2017-10-12] MEDS: NORMAL SALINE 1000 ML 1,000 ML IV PRN ×3 (05:46→21:34)
[2017-10-12] MEDS: LANSOPRAZOLE 30 MG TAB.RAP.DR PO SCH ×2 (05:46→18:36)
[2017-10-12] MEDS: DIAZEPAM 5 MG TABLET PO SCH ×4 (05:49→23:41)
[2017-10-12] MEDS: DOCUSATE SODIUM 100 MG CAPSULE PO SCH (10:39)
[2017-10-12] MEDS: ASPIRIN 81 MG TABLET, ENT COATED PO SCH (10:39)
[2017-10-12] MEDS: PANTOPRAZOLE SODIUM 40 MG VIAL IV SCH ×2 (10:39→21:37)
--- NOTE | 2017-10-12 16:51 | PDOC PROGRESS REPORT ---
Subjective Progress Note for:: 10/12/17 Subjective:: Patient resting in bed comfortably. For the second time nuclear stress is consulted because patient complained of chest pain. His vital signs are stable no EKG changes 3 sets of cardiac enzymes are negative. The chest pain is unlikely of cardiac origin Reason For Visit: CHEST PAIN, ETOH WITHDRAWAL, ELEVATED LFTS Physical Exam Vital Signs: Temp Pulse Resp BP Pulse Ox 99.0 F 69 18 141/71 H 96 10/12/17 16:01 10/12/17 16:01 10/12/17 16:01 10/12/17 16:01 10/12/17 16:01 Intake & Output 10/11/17 10/12/17 10/13/17 06:59 06:59 06:59 Intake Total 2357 4889 2094 Output Total 1575 1750 2900 Balance 782 3139 -806 Weight 83.9 kg 78.8 kg General appearance: PRESENT: no acute distress, well-developed, well-nourished Head exam: PRESENT: atraumatic, normocephalic Eye exam: PRESENT: conjunctiva pink, EOMI, PERRLA. ABSENT: scleral icterus Ear exam: PRESENT: normal external ear exam Mouth exam: PRESENT: moist, tongue midline Neck exam: ABSENT: carotid bruit, JVD, lymphadenopathy, thyromegaly Respiratory exam: PRESENT: clear to auscultation rogelio. ABSENT: rales, rhonchi, wheezes Cardiovascular exam: PRESENT: RRR. ABSENT: diastolic murmur, rubs, systolic murmur Pulses: PRESENT: normal dorsalis pedis pul Vascular exam: PRESENT: normal capillary refill GI/Abdominal exam: PRESENT: normal bowel sounds, soft. ABSENT: distended, guarding, mass, organolmegaly, rebound, tenderness Rectal exam: PRESENT: deferred Extremities exam: PRESENT: full ROM. ABSENT: calf tenderness, clubbing, pedal edema Neurological exam: PRESENT: alert, awake, oriented to person, oriented to place , oriented to time, oriented to situation, CN II-XII grossly intact. ABSENT: motor sensory deficit Psychiatric exam: PRESENT: appropriate affect, normal mood. ABSENT: homicidal ideation, suicidal ideation Skin exam: PRESENT: dry, intact, warm. ABSENT: cyanosis, rash Results Laboratory Results: 10/10/17 04:20 10/10/17 04:20 10/09/17 10/10/17 10/10/17 22:50 04:20 04:20 Creatine Kinase 188 H CK-MB (CK-2) Troponin I 0.027 0.022 NT-Pro-B Natriuret Pep 10/11/17 11:18 Creatine Kinase CK-MB (CK-2) 1.22 Troponin I < 0.012 NT-Pro-B Natriuret Pep 191 Impressions: Chest X-Ray 10/09/17 13:14 IMPRESSION: NO ACUTE RADIOGRAPHIC FINDING IN THE CHEST. KUB X-Ray 10/09/17 13:15 IMPRESSION: NO RADIOGRAPHIC EVIDENCE FOR ACUTE ABDOMINAL DISEASE. Abdomen/Pelvis CT 10/09/17 14:05 IMPRESSION: NORMAL CT OF THE CHEST WITH IV CONTRAST. Markedly fatty liver. No acute post traumatic changes. Chest CT 10/09/17 14:05 IMPRESSION: NORMAL CT OF THE CHEST WITH IV CONTRAST. Markedly fatty liver. No acute post traumatic changes. Head CT 10/09/17 14:08 IMPRESSION: NORMAL BRAIN CT WITHOUT CONTRAST. EVIDENCE OF ACUTE STROKE: NO. Tibia/Fibula X-Ray 10/09/17 14:08 IMPRESSION: NEGATIVE STUDY OF THE RIGHT TIBIA AND FIBULA. NO RADIOGRAPHIC EVIDENCE OF ACUTE INJURY. Assessment & Plan - Diagnosis (1) Chest pain Qualifiers: Chest pain type: other chest pain Qualified Code(s): R07.89 - Other chest pain; R07.8 - Other chest pain Is this a current diagnosis for this admission?: Yes Plan: I will discuss the case with Dr. Rodriguez. (2) Elevated liver chemistry Is this a current diagnosis for this admission?: Yes Plan: Most probably related to alcohol consumption (3) Thrombocytopenia Is this a current diagnosis for this admission?: Yes Plan: Related to chronic alcohol consumption. (4) GERD (gastroesophageal reflux disease) Is this a current diagnosis for this admission?: Yes Plan: On PPI (5) Status post fall Is this a current diagnosis for this admission?: Yes Plan: Supportive treatment (6) Hypertension Qualifiers: Hypertension type: essential hypertension Qualified Code(s): I10 - Essential (primary) hypertension Is this a current diagnosis for this admission?: Yes Plan: Continue current regimen (7) Hyperlipidemia Qualifiers: Hyperlipidemia type: unspecified Qualified Code(s): E78.5 - Hyperlipidemia , unspecified Is this a current diagnosis for this admission?: Yes Plan: Continue statin
--- NOTE | 2017-10-12 17:28 | PDOC PROGRESS REPORT ---
Subjective Progress Note for:: 10/12/17 Subjective:: Patient was noted to have active ongoing chest pain while nuclear tech went to inject him for rest imaging this happened for the second time. Nuclear tech did not inject patient per protocol. Patient to be rescheduled for the next day. Patient however looked comfortable. He seems to be just in mild alcohol withdrawal. Patient workup so far reviewed. He does have some coronary calcification. Patient may benefit from Ultram renal ultrasound to rule out gallstones. Twelve-lead EKGs and cardiac enzymes reviewed. They are noted to be negative. Discussed with [employer] that if patient is having chest pain, it is often reasonable to inject them to determine because of chest pain ongoing at that time this was again addressed today but they would not do it unless the protocol is changed. Reason For Visit: CHEST PAIN, ETOH WITHDRAWAL, ELEVATED LFTS Physical Exam Vital Signs: Temp Pulse Resp BP Pulse Ox 99.0 F 69 18 141/71 H 96 10/12/17 16:01 10/12/17 16:01 10/12/17 16:01 10/12/17 16:01 10/12/17 16:01 Intake & Output 10/11/17 10/12/17 10/13/17 06:59 06:59 06:59 Intake Total 2357 4889 2094 Output Total 1575 1750 2900 Balance 782 3139 -806 Weight 83.9 kg 78.8 kg Exam: GENERAL: well-nourished and in no acute distress. Alert and oriented x3 HEAD: Atraumatic, normocephalic. EYES: Pupils equal round and reactive to light, extraocular movements intact, sclera anicteric, conjunctiva are normal. ENT: TMs normal, nares patent, oropharynx clear without exudates. Moist mucous membranes. No oral ulcerations or bleeding gums noted NECK: supple without lymphadenopathy. Trachea is central. No cervical or axillary lymphadenopathy noted. Carotids are 2+, JVD WNL LUNGS: Respiration seems nonlabored, no significant accessory muscle action noted. Breath sounds clear to auscultation bilaterally and equal noted. No wheezes rales or rhonchi noted. No significant dullness noted on percussion. CHEST: Palpation of the chest wall shows no significant chest wall tenderness. 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 ABDOMEN: Soft, normoactive bowel sounds. No guarding, no rebound. No rigidity noted . No masses appreciated. Epigastric tenderness noted. EXTREMITIES: Pedal pulses are 1-2+, no calf tenderness noted. No clubbing or cyanosis. negative pedal edema noted NEUROLOGICAL: Focused neurological exam showed no significant neurologic deficit. Normal speech, no focal weakness appreciated. PSYCH: Normal mood, normal affect. Judgment and insight within normal limits. SKIN: No significant ecchymosis, skin is noted to be warm. MUSCULOSKELETAL EXAM: No significant acute joint swelling noted. Results Laboratory Results: 10/10/17 04:20 10/10/17 04:20 10/09/17 10/10/17 10/10/17 22:50 04:20 04:20 Creatine Kinase 188 H CK-MB (CK-2) Troponin I 0.027 0.022 NT-Pro-B Natriuret Pep 10/11/17 11:18 Creatine Kinase CK-MB (CK-2) 1.22 Troponin I < 0.012 NT-Pro-B Natriuret Pep 191 EKG Comments: Telemetry shows sinus rhythm without any sustained tachycardia or bradycardia Impressions: Chest X-Ray 10/09/17 13:14 IMPRESSION: NO ACUTE RADIOGRAPHIC FINDING IN THE CHEST. KUB X-Ray 10/09/17 13:15 IMPRESSION: NO RADIOGRAPHIC EVIDENCE FOR ACUTE ABDOMINAL DISEASE. Abdomen/Pelvis CT 10/09/17 14:05 IMPRESSION: NORMAL CT OF THE CHEST WITH IV CONTRAST. Markedly fatty liver. No acute post traumatic changes. Chest CT 10/09/17 14:05 IMPRESSION: NORMAL CT OF THE CHEST WITH IV CONTRAST. Markedly fatty liver. No acute post traumatic changes. Head CT 10/09/17 14:08 IMPRESSION: NORMAL BRAIN CT WITHOUT CONTRAST. EVIDENCE OF ACUTE STROKE: NO. Tibia/Fibula X-Ray 10/09/17 14:08 IMPRESSION: NEGATIVE STUDY OF THE RIGHT TIBIA AND FIBULA. NO RADIOGRAPHIC EVIDENCE OF ACUTE INJURY. Assessment & Plan - Diagnosis (1) Chest pain Qualifiers: Chest pain type: unspecified Qualified Code(s): R07.9 - Chest pain, unspecified Is this a current diagnosis for this admission?: Yes (2) Elevated lipase Is this a current diagnosis for this admission?: Yes (3) Alcohol abuse Is this a current diagnosis for this admission?: Yes (4) Alcohol withdrawal Qualifiers: Complication of substance-induced condition: uncomplicated Qualified Code(s ): F10.230 - Alcohol dependence with withdrawal, uncomplicated Is this a current diagnosis for this admission?: Yes (5) Elevated liver chemistry Is this a current diagnosis for this admission?: Yes (6) GERD (gastroesophageal reflux disease) Is this a current diagnosis for this admission?: Yes (7) Hyperlipidemia Qualifiers: Hyperlipidemia type: unspecified Qualified Code(s): E78.5 - Hyperlipidemia , unspecified Is this a current diagnosis for this admission?: Yes (8) Hypertension Qualifiers: Hypertension type: essential hypertension Qualified Code(s): I10 - Essential (primary) hypertension Is this a current diagnosis for this admission?: Yes - Notes Notes: Chest pain: This is felt to be mostly noncardiac clinically however agreed that this test is indicated in view of presence of coronary calcification. This has been rescheduled for tomorrow. 2D echo shows normal LVEF. No significant valvular abnormalities were noted. Will schedule patient for a abdominal ultrasound to rule out gallstones. Patient was also noted to have elevated lipase on admission. Elevated lipase: Possible mild grade pancreatitis from history of alcohol abuse. Need to rule out gallstones. Alcohol withdrawal: Treat with beta-blockers and benzodiazepines. Replace vitamin B1. Gastroesophageal reflux: Recommend double dose proton pump inhibitor. Patient could have gastritis. May consider GI evaluation if clinically indicated. Hyperlipidemia: Recommend statin therapy. Hypertension: Currently blood pressure stable. Beta-blockers preferred in presence of alcohol withdrawal. Could also use clonidine if needed. - Time Time with patient: 15-25 minutes - More than 50% of the time spent coordinating care, discussing management plans with involved caregivers. Management plans discussed with involved personnels. Medical decision making was of moderate to high complexity, patient's has multiple comorbidities. Dr. Héctor Handy to follow tomorrow.
[2017-10-12] MEDS: LORAZEPAM INJ 2 MG/1 ML VIAL IV PRN (21:36)
[2017-10-12] MEDS: ATORVASTATIN CALCIUM 80 MG TABLET PO SCH (21:37)
[2017-10-13] MEDS: HEPARIN SOD (PORCINE) 5,000 UNIT/ML 1 ML SYRINGE SUBCUT SCH ×2 (05:24→15:09)
[2017-10-13] MEDS: DIAZEPAM 5 MG TABLET PO SCH ×2 (05:41→13:17)
[2017-10-13] MEDS: LANSOPRAZOLE 30 MG TAB.RAP.DR PO SCH (05:43)
--- NOTE | 2017-10-13 09:04 | EKG REPORT ---
SEVERITY:- NORMAL ECG - SINUS RHYTHM : Confirmed by: Tobi Rodriguez 13-Oct-2017 09:03:05
[2017-10-13] MEDS: PANTOPRAZOLE SODIUM 40 MG VIAL IV SCH (10:37)
[2017-10-13] MEDS ORDERED: REGADENOSON INJ 0.4 MG/5 ML DISP.SYRIN IV ONE (12:44)
[2017-10-13] MEDS: ASPIRIN 81 MG TABLET, ENT COATED PO SCH (13:17)
[2017-10-13] MEDS: DOCUSATE SODIUM 100 MG CAPSULE PO SCH (13:17)
[2017-10-13] MEDS: NORMAL SALINE 1000 ML 1,000 ML IV PRN (13:23)
--- NOTE | 2017-10-13 14:28 | PDOC DISCHARGE SUMMARY ---
General - Admit/Disc Date/PCP Admission Date/Primary Care Provider: 10/09/17 18:39 Discharge Date: 10/13/17 - Discharge Diagnosis (1) Chest pain Is this a current diagnosis for this admission?: Yes (2) Elevated liver chemistry Is this a current diagnosis for this admission?: Yes (3) Thrombocytopenia Is this a current diagnosis for this admission?: Yes (4) GERD (gastroesophageal reflux disease) Is this a current diagnosis for this admission?: Yes (5) Status post fall Is this a current diagnosis for this admission?: Yes (6) Hypertension Is this a current diagnosis for this admission?: Yes (7) Hyperlipidemia Is this a current diagnosis for this admission?: Yes - Additional Information Resuscitation Status: Full Code Home Medications: Tramadol HCl [Ultram 50 mg Tablet] 50 mg PO Q6HP PRN 10/09/17 History of Present Illness History of Present Illness: JING MOHR is a 62 year old male with a past medical history of hypertension, alcohol abuse with continuous use, an who presented to the emergency department today with a complaint of sudden onset chest pain that woke him from sleep. His pain is described as d GERD midsternal radiating to his back and worsened by activity, relieved by lying in a left lateral recumbent position. He reports that his pain is associated with slight dyspnea diaphoresis. He did have an episode of nausea with vomiting earlier today. He also reports that approximately 3 days ago, the patient fell approximately 10 feet landing on his back and now has upper back pain, mid abdominal pain and suprapubic pain. He denies loss of consciousness. Following his fall, he decided that he needed to stop drinking alcohol and abruptly ceased all alcohol consumption. His last alcohol intake was 10/07/17. He denies a history of alcohol withdrawal or seizure. Evaluation in the emergency department reveals essentially normal imaging including a head CT, noncontrasted CT of the chest, abdomen, and pelvis, normal chest x-ray, KUB, and right tibia/fibula. EKG reveals sinus tachycardia with left anterior fascicular block which is changed from previous EKG in 2016 which showed normal sinus rhythm. Initial troponin is 0.018, follow-up is indeterminately elevated at 0.029. The patient does continue to complain of intermittent chest pain associated with dyspnea. Laboratory evaluation reveals thrombocytopenia (47), elevated PT/INR (16.8/1.30) and an elevated d-dimer (1.14 ), elevated LFTs, mildly elevated lipase (342) urinalysis suggestive of dehydration and a normal tox screen. The patient is referred to the hospitalist service for observational admission and chest pain rule out. Hospital Course Hospital Course: Mr. Mohr is a 62 years old male patient with past medical history of hypertension, hyperlipidemia, gastroesophageal reflux disease and alcohol dependence presents with chief complaint of chest pain. History set of cardiac enzymes are negative and stress test done this morning and it is negative for reversible ischemia. Patient is put on alcohol withdrawal protocol with Ativan 2 mg IV every 12 hours as needed and diazepam 10 mg p.o. every 6 hours scheduled. Patient remains stable clinically. His vital signs are within normal limits and his blood works are stable. I have a long discussion with the patient regarding the consequence of alcohol abuse and I counseled him and encouraged him to quit and remain sober. Physical Exam Vital Signs: Temp Pulse Resp BP Pulse Ox 98.0 F 65 18 135/84 H 100 10/13/17 11:39 10/13/17 11:39 10/13/17 11:39 10/13/17 11:39 10/13/17 11:39 Intake & Output 10/12/17 10/13/17 10/14/17 06:59 06:59 06:59 Intake Total 4889 3360 1000 Output Total 1750 3600 Balance 3139 -240 1000 Weight 78.8 kg 81.1 kg General appearance: PRESENT: no acute distress, well-developed, well-nourished Head exam: PRESENT: atraumatic, normocephalic Eye exam: PRESENT: conjunctiva pink, EOMI, PERRLA. ABSENT: scleral icterus Ear exam: PRESENT: normal external ear exam Mouth exam: PRESENT: moist, tongue midline Neck exam: ABSENT: carotid bruit, JVD, lymphadenopathy, thyromegaly Respiratory exam: PRESENT: clear to auscultation rogelio. ABSENT: rales, rhonchi, wheezes Cardiovascular exam: PRESENT: RRR. ABSENT: diastolic murmur, rubs, systolic murmur Pulses: PRESENT: normal dorsalis pedis pul Vascular exam: PRESENT: normal capillary refill GI/Abdominal exam: PRESENT: normal bowel sounds, soft. ABSENT: distended, guarding, mass, organolmegaly, rebound, tenderness Rectal exam: PRESENT: deferred Extremities exam: PRESENT: full ROM. ABSENT: calf tenderness, clubbing, pedal edema Neurological exam: PRESENT: alert, awake, oriented to person, oriented to place , oriented to time, oriented to situation, CN II-XII grossly intact. ABSENT: motor sensory deficit Psychiatric exam: PRESENT: appropriate affect, normal mood. ABSENT: homicidal ideation, suicidal ideation Skin exam: PRESENT: dry, intact, warm. ABSENT: cyanosis, rash Results Laboratory Results: 10/10/17 04:20 10/10/17 04:20 10/09/17 10/10/17 10/10/17 22:50 04:20 04:20 Creatine Kinase 188 H CK-MB (CK-2) Troponin I 0.027 0.022 NT-Pro-B Natriuret Pep 10/11/17 11:18 Creatine Kinase CK-MB (CK-2) 1.22 Troponin I < 0.012 NT-Pro-B Natriuret Pep 191 Impressions: Chest X-Ray 10/09/17 13:14 IMPRESSION: NO ACUTE RADIOGRAPHIC FINDING IN THE CHEST. KUB X-Ray 10/09/17 13:15 IMPRESSION: NO RADIOGRAPHIC EVIDENCE FOR ACUTE ABDOMINAL DISEASE. Abdomen/Pelvis CT 10/09/17 14:05 IMPRESSION: NORMAL CT OF THE CHEST WITH IV CONTRAST. Markedly fatty liver. No acute post traumatic changes. Chest CT 10/09/17 14:05 IMPRESSION: NORMAL CT OF THE CHEST WITH IV CONTRAST. Markedly fatty liver. No acute post traumatic changes. Head CT 10/09/17 14:08 IMPRESSION: NORMAL BRAIN CT WITHOUT CONTRAST. EVIDENCE OF ACUTE STROKE: NO. Tibia/Fibula X-Ray 10/09/17 14:08 IMPRESSION: NEGATIVE STUDY OF THE RIGHT TIBIA AND FIBULA. NO RADIOGRAPHIC EVIDENCE OF ACUTE INJURY. Qualifiers - * PATIENT BEING DISCHARGED WITH ANY OF THE FOLLOWING DIAGNOSIS: No
[2017-10-13 15:19] VITALS: BP 131/75
--- NOTE | 2017-10-13 18:20 | PROGRESS NOTE E ---
Progress Note NAME: JING BONILLA : 1955 AGE: 62Y DATE: 10/13/2017 ROOM: 404 SUBJECTIVE: The patient, at present, does not seem to be in alcohol withdrawal. He denies any chest pain or discomfort. There is no PND, orthopnea, or shortness of breath. There are no events seen on the monitor. The patient denies any palpitations. There is no edema. There is no syncope or near syncope. There is no TIA or CVA symptoms. OBJECTIVE: GENERAL: The patient appears to be well built, slightly malnourished but well-groomed. He is in no acute distress. VITAL SIGNS: He is afebrile with temperature 98 degrees Fahrenheit. His pulse is 65 beats per minute. Blood pressure is 135/84. Respirations 18 per minute. O2 sat is 100% on room air. HEENT: Head is normocephalic/atraumatic. Eyes: Pupils are equal, round, regular, reactive to light and accommodation. Extraocular movements are normal. There is no conjunctival pallor. There is no scleral icterus. ENT is negative. NECK: Supple. There is no JVD. Carotids are equal. There is no bruit. No lymphadenopathy. There is no goiter. Trachea is central. LUNGS: Clear to auscultation and percussion. There is no chest wall tenderness. There are no rhonchi, rales, or wheezing. HEART: S1, S2 heard. There is no S3 gallop. There is no S4 gallop. There is a systolic murmur in the left sternal border and apex without radiation. There is no rub. ABDOMEN: Soft, nontender. There is no hepatosplenomegaly. Bowel sounds are well heard. There is no areas of tenderness or masses. EXTREMITIES: Femorals are slightly diminished. Leg pulses are diminished. There is no pedal edema. There is no DVT or cellulitis. There is no calf tenderness. MARKETING ANALYTICS ANALYST: The patient is conscious, awake, alert, oriented x3. There is no focal deficit. PSYCHIATRIC: Judgment and insight are intact. His affect is normal. The patient does not appear to be agitated. The patient underwent an uneventful Lexiscan Cardiolite stress test this morning. There were no EKG changes. The patient's nuclear imaging showed no evidence of reversible ischemia or scar or CO. This was discussed with the patient in detail. His liver function tests on 10/10/2017 were abnormal. Lipase was also elevated at 3.6. His HDL level on 10/10/2017 was low at 22. The patient's LDL level was good at 82. His triglycerides were good at 73. Note that all of his cardiac enzymes were negative. ASSESSMENT: 1. CHEST PAIN, NONCARDIAC. Negative biomarkers for acute coronary event and negative stress Cardiolite stress test, with normal left ventricular systolic function. 2. ELEVATED LIPASE. 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 3. ALCOHOL ABUSE. 4. AT PRESENT, NO EVIDENCE OF ALCOHOL WITHDRAWAL. 5. ABNORMAL LIVER FUNCTION TESTS. Most likely secondary to alcohol. 6. GASTROESOPHAGEAL REFLUX DISEASE. 7. HYPERLIPIDEMIA/DYSLIPIDEMIA. 8. HYPERTENSION. PLAN: The patient was counseled to stop smoking and to stop taking alcohol. Note the patient's *------* surrogate healthcare decision maker is his sister. Will get a gastrointestinal workup at a later date. Will recommend discharging the patient on aspirin and anti-anxiety medication, and continue his tramadol. Note the patient has diet-controlled hypertension. Note that 45 minutes were spent with the patient with more than 50% of the time spent in direct patient care. His echocardiogram was rediscussed with the patient, and also his IV Lexiscan Cardiolite stress test was also discussed with him, and also *------*. The patient can be discharged home. The patient has been counseled to stop smoking and to refrain from alcohol. Medical decision making is of moderate to high complexity. Will sign off the case. If there is a recurrence of chest pain, will recommend the patient follow up with a clinical fellow. DICTATING PHYSICIAN: KRISTAL TABARES M.D. [id number] PHY#: [id number] ID: [id number] JOB#: [id number] ACCT: [id number] cc: >
--- NOTE | 2017-10-14 14:03 | DRAGON STRESS TEST REPORT ---
Intravenous Lexiscan Cardiolite stress test using single photon emmision computerized tomography. Date of procedure: 10/13/2017. Ordering Provider: Dr. SHAIKH. Patient's status: In Patient Indication: Chest pain. Coronary risk factors: Age, hypertension, dyslipidemia , and family history of coronary artery disease. Resting EKG: Sinus Rhythm. Within Normal Limits Stress EKG: No changes of ischemia. The patient had no chest pain or discomfort, and there were no arrhythmias seen. Reason for termination: Protocol. Conclusions: Normal EKG and hemodynamic response to IV Lexiscan. Nuclear data: At rest the patient was given 9.13 millicuries of technetium 99m sestamibi injected intravenously. As per protocol rest non gated SPECT images were obtained. Subsequently the patient was given intravenous Lexiscan at a dose of 0.4 mg in 5 mL intravenously, followed by flush with normal saline. Subsequently the stress dose of 29.6 millicuries of technetium 99m sestamibi was injected intravenously. As per protocol stress gated images were obtained. Nuclear interpretation: Review of images showed that all segments of the myocardium had normal perfusion at rest, and normal perfusion post stress with IV Lexiscan. All segments of the myocardium had normal motion, contraction, and thickening by gated study. T. I D. ratio was normal at 1.09. Computer read rest, and stress left ventricular ejection fraction were 64 %, and 62 %, respectively. Conclusion: 1. There is no scintigraphic evidence of Lexiscan induced myocardial ischemia. 2. There is no scintigraphic evidence of myocardial infarction/scar. Recommendations: Aggressive risk factor modification, and treating the underlying co- morbidities. [facility]
== END 2017-10-13 15:50 | disposition home or self-care (01) | DRG 897 ==
LOC: ER 12:31 → OBSVTOIN 18:39 → EH 18:39 → 4N 10-10 00:56
PROVIDERS: ADMIT Internal Medicine; ATTEND Internal Medicine
DX: F10.230 Alcohol dependence with withdrawal, uncomplicated (principal); I45.2 Bifascicular block; E46 Unspecified protein-calorie malnutrition; D69.6 Thrombocytopenia, unspecified; K21.9 Gastro-esophageal reflux disease without esophagitis; I10 Essential (primary) hypertension; E78.00 Pure hypercholesterolemia, unspecified; R07.89 Other chest pain; D69.59 Other secondary thrombocytopenia; W17.4XXA Fall from dock, initial encounter; W17.89XA Other fall from one level to another, initial encounter; M19.90 Unspecified osteoarthritis, unspecified site; K29.70 Gastritis, unspecified, without bleeding; Y90.0 Blood alcohol level of less than 20 mg/100 ml; Z68.26 Body mass index [BMI] 26.0-26.9, adult; Z91.81 History of falling; Z60.2 Problems related to living alone; Z88.1 Allergy status to other antibiotic agents; Z88.3 Allergy status to other anti-infective agents; Z88.0 Allergy status to penicillin; Z82.61 Family history of arthritis; Z82.49 Family history of ischemic heart disease and other diseases of the circulatory system
CPT/HCPCS: 36415; 70450; 71045; 71260; 74018; 74177; 78452; 80053; 80061; 80307; 81001; 82550; 82553; 83690; 83880; 84484; 85025; 85027; 85379; 85610; 93005; 93010; 93017; 93306; 94640; 96361; 96374; 96375; 99285; A9500; J2060; J2270; J2785; J3490; J7030; S0164

== ENCOUNTER 2018-02-09 12:46 | Emergency (ER) | payer SELFPAY ==
--- NOTE | 2018-02-09 14:08 | ER Document Report ---
ED Medical Screen (RME) - General Chief Complaint: Chest Pain Stated Complaint: CHEST PAIN Time Seen by Provider: 02/09/18 14:02 Notes: 62-year-old male patient with prior admission for alcohol withdrawal and elevated LFTs comes emergency room complaining of chest pain which is a chronic problem but has gotten worse today. He describes it as the sternal chest region. He also reports episodes of his heart fluttering and feeling like it is beating very fast. He states when that occurs if he sits down and relaxes and rests it improves the discomfort. He also has pain in his right lateral side, and indicates the lateral inferior ribs on the right side. He also states there is a bulge in the left groin that has a gurgling sound in it when he pushes on it. I have greeted and performed a rapid initial assessment of this patient. A comprehensive ED assessment and evaluation of the patient, analysis of test results and completion of the medical decision making process will be conducted by additional ED providers. TRAVEL OUTSIDE OF THE [place] IN LAST 30 DAYS: No - Related Data Allergies/Adverse Reactions: amoxicillin [Amoxicillin] Allergy (Unknown, Verified 10/09/17 12:34) ampicillin [Ampicillin] Allergy (Unknown, Verified 10/09/17 12:34) ceftriaxone sodium [From Rocephin] Allergy (Unknown, Verified 10/09/17 12:34) Cephalosporins Allergy (Unknown, Verified 10/09/17 12:34) Penicillins Allergy (Unknown, Verified 10/09/17 12:34) tetracycline [Tetracycline] Allergy (Unknown, Verified 10/09/17 12:34) Past Medical History - Past Medical History Cardiac Medical History: Reports: Hx Hypercholesterolemia, Hx Hypertension Denies: Hx Congestive Heart Failure, Hx Heart Attack Renal/ Medical History: Denies: Hx Peritoneal Dialysis GI Medical History: Reports: Hx Gastroesophageal Reflux Disease - PPI dependent Musculoskeltal Medical History: Reports Hx Arthritis, Reports Hx Musculoskeletal Deformity, Reports Hx Musculoskeletal Trauma Past Surgical History: Reports: Hx Appendectomy, Hx Orthopedic Surgery - Immunizations Hx Diphtheria, Pertussis, Tetanus Vaccination: Yes - 2016 History of Influenza Vaccine for 12/2016 - 05/2017 Season: No Physical Exam - Vital signs Vitals: Temp Pulse Resp BP Pulse Ox 98.7 F 101 H 20 142/90 H 95 02/09/18 13:05 02/09/18 13:05 02/09/18 13:05 02/09/18 13:05 02/09/18 13:05 Course - Vital Signs Vital signs: Temp Pulse Resp BP Pulse Ox 98.7 F 101 H 20 142/90 H 95 02/09/18 13:05 02/09/18 13:05 02/09/18 13:05 02/09/18 13:05 02/09/18 13:05
[2018-02-09 14:42] LABS: ABSOLUTE BASOPHILS # (AUTO) 0.1 10^3/uL (0.0-0.2); ABSOLUTE EOSINOPHILS # (AUTO) 0.1 10^3/uL (0.0-0.6); ABSOLUTE LYMPHOCYTES (AUTO) 2.8 10^3/uL (0.5-4.7); ABSOLUTE MONOCYTES (AUTO) 0.5 10^3/uL (0.1-1.4); ABSOLUTE NEUT (AUTO) 2.3 10^3/uL (1.7-8.2); BASOPHILS % (AUTO) 1.2 % (0-2); EOSINOPHILS % (AUTO) 2.2 % (0-6); HEMATOCRIT 47.2 % (37.9-51.0); HEMOGLOBIN 16.5 g/dL (13.5-17.0); LYMPHOCYTES % (AUTO) 48.3 % (13-45); MEAN CORPUSCULAR HEMOGLOBIN 33.9 pg (27.0-33.4); MEAN CORPUSCULAR VOLUME 97 fl (80-97); PLATELET COUNT 105 10^3/uL (150-450); RED BLOOD COUNT 4.87 10^6/uL (4.35-5.55); RED CELL DISTRIBUTION WIDTH 13.6 % (11.5-14.0); SEGMENTED NEUTROPHILS % (AUTO) 39.3 % (42-78); TOTAL CELLS COUNTED % (AUTO) 100 %; WHITE BLOOD COUNT 5.8 10^3/uL (4.0-10.5)
[2018-02-09 14:45] LABS: APPEARANCE,URINE SLIGHTLY-CLOUDY; BILIRUBIN,URINE NEGATIVE (NEGATIVE); COLOR,URINE YELLOW; GLUCOSE, URINE NEGATIVE (NEGATIVE); KETONES,URINE NEGATIVE (NEGATIVE); LEUKOCYTE ESTERASE,URINE NEGATIVE (NEGATIVE); NITRITE,URINE NEGATIVE (NEGATIVE); PROTEIN,URINE NEGATIVE (NEGATIVE); URINE SPECIFIC GRAVITY 1.018
[2018-02-09 15:03] LABS: ALANINE AMINOTRANSFERASE 96 U/L (21-72); ALBUMIN 4.2 g/dL (3.5-5.0); ALKALINE PHOSPHATASE 99 U/L (38-126); ANION GAP 16 (5-19); ASPARTATE AMINO TRANSFERASE 201 U/L (17-59); BILIRUBIN,DIRECT 0.4 mg/dL (0.0-0.4); BILIRUBIN,TOTAL 0.7 mg/dL (0.2-1.3); BLOOD UREA NITROGEN 10 mg/dL (7-20); CALCIUM 9.5 mg/dL (8.4-10.2); CARBON DIOXIDE 24 mmol/L (22-30); CHLORIDE 107 mmol/L (98-107); CREATINE KINASE 76 U/L (55-170); GLUCOSE 95 mg/dL (75-110); LIPASE 330.1 U/L (23-300); POTASSIUM 4.5 mmol/L (3.6-5.0); SODIUM 147.2 mmol/L (137-145); TOTAL PROTEIN 9.3 g/dL (6.3-8.2)
[2018-02-09] MEDS ORDERED: MORPHINE SULFATE 10 MG/ML INJ IV ONE ×2 (15:12→16:39)
[2018-02-09 15:14] LABS: CREATINE KINASE MB 1.83 ng/mL (<4.55)
[2018-02-09 15:19] LABS: TROPONIN I < 0.012 ng/mL
--- NOTE | 2018-02-09 17:27 | RADIOLOGY REPORT (SQ) ---
EXAM DESCRIPTION: CHEST SINGLE VIEW COMPLETED DATE/TIME: 02/09/2018 2:48 pm REASON FOR STUDY: Chest pain COMPARISON: None. EXAM PARAMETERS: NUMBER OF VIEWS: One view. TECHNIQUE: Single frontal radiographic view of the chest acquired. RADIATION DOSE: NA LIMITATIONS: None. FINDINGS: LUNGS AND PLEURA: No opacities, masses or pneumothorax. No pleural effusion. MEDIASTINUM AND HILAR STRUCTURES: No masses. Contour normal. HEART AND VASCULAR STRUCTURES: Heart normal in size. Normal vasculature. BONES: No acute findings. HARDWARE: None in the chest. OTHER: No other significant finding. IMPRESSION: NO ACUTE RADIOGRAPHIC FINDING IN THE CHEST. TECHNICAL DOCUMENTATION: JOB ID: [id number] [employer]- All Rights Reserved Reading location - IP/workstation name: [email or web address]
--- NOTE | 2018-02-09 18:48 | ER Document Report ---
ED Cardiac - General Chief Complaint: Chest Pain Stated Complaint: CHEST PAIN Time Seen by Provider: 02/09/18 14:02 Mode of Arrival: Ambulatory Information source: Patient TRAVEL OUTSIDE OF THE [place] IN LAST 30 DAYS: No - HPI Patient complains to provider of: Other - 62-year-old man that presents for evaluation of multiple medical complaints including pain along the chest pain along the right chest pain in the suprapubic aspect with what feels like a small protrusion associated with it for which she has not been evaluated by any doctor in the past. He denies any current primary care physician. Notes that he is intermittently having these pains and sometimes takes an aspirin which seemed to help with them. Denies fevers denies chills denies other symptoms. - Related Data Allergies/Adverse Reactions: amoxicillin [Amoxicillin] Allergy (Unknown, Verified 02/09/18 15:08) ampicillin [Ampicillin] Allergy (Unknown, Verified 02/09/18 15:08) ceftriaxone sodium [From Rocephin] Allergy (Unknown, Verified 02/09/18 15:08) Cephalosporins Allergy (Unknown, Verified 02/09/18 15:08) Penicillins Allergy (Unknown, Verified 02/09/18 15:08) tetracycline [Tetracycline] Allergy (Unknown, Verified 02/09/18 15:08) Past Medical History - General Information source: Patient - Social History Smoking Status: Never Smoker Frequency of alcohol use: 2-3 days a week Drug Abuse: None Family History: Reviewed & Not Pertinent, Arthritis, Hypertension Patient has suicidal ideation: No Patient has homicidal ideation: No - Past Medical History Cardiac Medical History: Reports: Hx Hypercholesterolemia, Hx Hypertension Denies: Hx Congestive Heart Failure, Hx Heart Attack Renal/ Medical History: Denies: Hx Peritoneal Dialysis GI Medical History: Reports: Hx Gastroesophageal Reflux Disease - PPI dependent Musculoskeletal Medical History: Reports Hx Arthritis, Reports Hx Musculoskeletal Deformity, Reports Hx Musculoskeletal Trauma Past Surgical History: Reports: Hx Appendectomy, Hx Orthopedic Surgery - Immunizations Hx Diphtheria, Pertussis, Tetanus Vaccination: Yes - 2016 Review of Systems - Review of Systems -: Yes All other systems reviewed and negative Physical Exam - Vital signs Vitals: Temp Pulse Resp BP Pulse Ox 98.7 F 101 H 20 142/90 H 95 02/09/18 13:05 02/09/18 13:05 02/09/18 13:05 02/09/18 13:05 02/09/18 13:05 - General General appearance: Appears well, Alert In distress: Mild - HEENT Head: Normocephalic, Atraumatic Eyes: Normal Pupils: PERRL - Respiratory Respiratory status: No respiratory distress Chest status: Nontender Breath sounds: Normal Chest palpation: Normal - Cardiovascular Rhythm: Regular Heart sounds: Normal auscultation Murmur: No - Abdominal Inspection: Normal Distension: Other - Small swelling in the left inguinal crease reducible Bowel sounds: Normal Tenderness: Nontender Organomegaly: No organomegaly - Back Back: Normal, Nontender - Extremities General upper extremity: Normal inspection, Nontender, Normal color, Normal ROM , Normal temperature General lower extremity: Normal inspection, Nontender, Normal color, Normal ROM , Normal temperature, Normal weight bearing. No: Evi's sign - Neurological Neuro grossly intact: Yes Cognition: Normal Orientation: AAOx4 [place] Coma Scale Eye Opening: Spontaneous [place] Coma Scale Verbal: Oriented [place] Coma Scale Motor: Obeys Commands Rowlett Coma Scale Total: 15 Speech: Normal Motor strength normal: LUE, RUE, LLE, RLE Sensory: Normal - Psychological Associated symptoms: Normal affect, Normal mood Course - Re-evaluation Re-evalutation: 02/09/18 19:45 62-year-old man that presents for evaluation of a myriad of medical complaints all of which are chronic in nature. We will obtain broad labs, most of which were ordered through provider in triage. Patient with a unremarkable troponin unremarkable EKG. We will plan for administration of analgesia and reassessment of hernia. Inguinal crease the left suprapubic aspect demonstrates reducible swelling. He has had 2- troponins in the emergency department responded well to conservative management. We will obtain a CT of the abdomen and pelvis with p.o. and IV contrast for consideration of his hernia and potential obstruction. CT imaging of the abdomen and pelvis demonstrates what appears to be a small fat -containing hernia in the left lower quadrant. This is reducible. Patient is having some pain there is no bowel involvement no obstructive process he does have what appears to be also early diverticulitis. He has been able to tolerate p.o. in the emergency department. Believe that his chronic problems have been exacerbated likely by what is now developing diverticulitis. We will plan for treatment with Cipro, Flagyl, pain medication, as well as Zofran. I reiterated multiple times importance of appropriate follow-up with outpatient general surgeon as well as an outpatient primary care physician as I believe that he likely should undergo treatment for chronic medical problems including likely untreated blood pressure. With his age, risk factors, EKG, troponin, and history his heart score is a 3. Do not believe he warrants inpatient admission at this time for what is atypical chest pain. Based on his abdominal examination I do not believe that he has any emergent surgical process in the abdomen. Believe that he is safe for discharge with outpatient follow-up. - Vital Signs Vital signs: Temp Pulse Resp BP Pulse Ox 98.8 F 101 H 19 152/108 H 96 02/09/18 20:57 02/09/18 13:05 02/09/18 20:52 02/09/18 20:55 02/09/18 20:52 - Laboratory Result Diagrams: 02/09/18 14:30 02/09/18 14:30 Laboratory results interpreted by me: 02/09/18 02/09/18 02/09/18 14:30 14:30 14:30 MCH 33.9 H Plt Count 105 L Seg Neutrophils % 39.3 L Lymphocytes % 48.3 H Sodium 147.2 H AST 201 H ALT 96 H Total Protein 9.3 H Lipase 330.1 H Urine Urobilinogen 4.0 H Discharge - Discharge Clinical Impression: Hernia, Diverticulitis Abdominal pain Qualifiers: Abdominal location: unspecified location Qualified Code(s): R10.9 - Unspecified abdominal pain Chest pain Qualifiers: Chest pain type: unspecified Qualified Code(s): R07.9 - Chest pain, unspecified Condition: Good Disposition: HOME, SELF-CARE Instructions: Abdominal Pain ([facility]), Antinausea Medication ([facility]), Chest Pain of Unclear Cause ([facility]) Additional Instructions: Your seen today in the emergency department for your hernia. You also were seen for your chest pain. You were also seen for your abdominal pain. It appears that you do have diverticulitis. You been given antibiotics, take the medications prescribed to you as directed. You have been given some pain medication use it only as necessary. You have been given a referral to general surgeon, you should schedule your appointment with him in the coming week. You have been given a referral to a primary physician he should schedule appointment with them as well in the coming week. If you have worsening fevers or chills, abdominal pain lightheadedness inability to eat or drink he should return to the emergency room as it may be a more serious condition. Prescriptions: Ciprofloxacin HCl [Cipro 500 mg Tablet] 500 mg PO BID 10 Days #20 tablet Hydrocodone/Acetaminophen [[place] 5-325 mg Tablet] 1 tab PO TID PRN #15 tablet PRN Reason: Metronidazole [Flagyl 500 mg Tablet] 500 mg PO Q8H 10 Days #30 tablet Promethazine HCl [Phenergan 25 mg Tablet] 25 mg PO BID PRN #14 tablet PRN Reason: For Nausea/Vomiting Forms: Elevated Blood Pressure, Return to Work Referrals: GOLDEN LAURA MD [MARICRUZ RODRIGUEZ] - Follow up in 1 week [facility] [Provider Group] - Follow up as needed
--- NOTE | 2018-02-09 19:39 | EKG REPORT ---
SEVERITY:- ABNORMAL ECG - SINUS RHYTHM INCOMPLETE RBBB AND LAFB : Confirmed by: Joss Cartwright MD 09-Feb-2018 19:38:41
--- NOTE | 2018-02-09 20:01 | RADIOLOGY REPORT (SQ) ---
EXAM DESCRIPTION: CT ABD/PELVIS WITH IV ORAL COMPLETED DATE/TIME: 02/09/2018 7:31 pm REASON FOR STUDY: concern for incarcerated hernia COMPARISON: 12/12/2016. TECHNIQUE: CT scan of the abdomen and pelvis performed using helical scanning technique with dynamic intravenous contrast injection. No oral contrast. Images reviewed with lung, soft tissue, and bone windows. Reconstructed coronal and sagittal MPR images reviewed. Delayed images for evaluation of the urinary system also acquired. All images stored on PACS. All CT scanners at this facility use dose modulation, iterative reconstruction, and/or weight based d osing when appropriate to reduce radiation dose to as low as reasonably achievable (ALARA). [facility]: Dose Right [facility]: CareDose [facility]: Dose Right [facility]: Teradose 4D [facility]: [employer] CONTRAST TYPE AND DOSE: contrast/concentration: Isovue 350.00 mg/ml; Total Contrast Delivered: 87.0 ml; Total Saline Delivered: 57.0 ml RENAL FUNCTION: BUN 10 creatinine 0.77. RADIATION DOSE: CT Rad equipment meets quality standard of care and radiation dose reduction techniq ues were employed. CTDIvol: 7.3 - 10.2 mGy. DLP: 1010 mGy-cm.. LIMITATIONS: None. FINDINGS: LOWER CHEST: No significant findings. No nodules or infiltrates. LIVER: Enlarged. Diffuse fatty infiltration of the liver. Slightly nodular contour. No masses. No dilated ducts. SPLEEN: Normal size. No focal lesions. PANCREAS: No masses. No significant calcifications. No adjacent inflammation or peripancreatic fluid collections. Pancreatic duct not dilated. GALLBLADDER: No identified stones by CT criteria. No inflammatory changes to suggest cholecystitis. ADRENAL GLANDS: No significant masses or asymmetry. RIGHT KIDNEY AND URETER: No solid masses. No significant calcifications. No hydronephrosis or hyd roureter. LEFT KIDNEY AND URETER: No solid masses. No significant calcifications. No hydronephrosis or hydr oureter. AORTA AND VESSELS: No aneurysm. No dissection. Renal arteries, SMA, celiac without stenosis. RETROPERITONEUM: No retroperitoneal adenopathy, hemorrhage or masses. BOWEL AND PERITONEAL CAVITY: Diverticuli in the descending and sigmoid colon. Mild inflammatory walker ges in the left lower quadrant. No abnormal fluid collection. . No free fluid or peritoneal masses. APPENDIX: Surgically absent. PELVIS: No mass. No free fluid. Normal bladder. Left inguinal hernia containing fat. No involvemen t of the adjacent bowel. ABDOMINAL WALL: No masses. No hernias. BONES: No significant or acute findings. OTHER: No other significant finding. IMPRESSION: 1. COLONIC DIVERTICULOSIS WITH MILD EARLY DIVERTICULITIS IN THE LEFT LOWER QUADRANT. NO EVIDENCE OF ABSCESS. 2. LEFT INGUINAL HERNIA CONTAINING FAT. NO INVOLVEMENT OF THE ADJACENT BOWEL. NO EVIDENCE OF BOWEL OBSTRUCTION. 3. HEPATOMEGALY. DIFFUSE FATTY INFILTRATION OF THE LIVER. SLIGHTLY NODULAR CONTOUR. CANNOT EXCLUDE EARLY CIRRHOSIS. 4. NO OTHER SIGNIFICANT OR ACUTE FINDING IN THE ABDOMEN OR PELVIS ON CT SCAN WITH IV CONTRAST. TECHNICAL DOCUMENTATION: JOB ID: [id number] Quality ID # [id number]: Final reports with documentation of one or more dose reduction techniques (e.g., Au tomated exposure control, adjustment of the mA and/or kV according to patient size, use of iterative reconstruction technique) 2010 [employer]- All Rights Reserved Reading location - IP/workstation name: [email or web address]
[2018-02-09 20:57] VITALS: BP 152/108
== END 2018-02-09 21:01 | disposition home or self-care (01) ==
LOC: ER 12:46
DX: K57.92 Diverticulitis of intestine, part unspecified, without perforation or abscess without bleeding (principal); K40.90 Unilateral inguinal hernia, without obstruction or gangrene, not specified as recurrent; R07.89 Other chest pain; I10 Essential (primary) hypertension; Z88.0 Allergy status to penicillin; Z88.1 Allergy status to other antibiotic agents
CPT/HCPCS: 93005; 96376; 99285; 96374; 36415; 82553; 82550; 83690; 83735; 85025; 80053; 81001; 84484; 71045; 74177; 93010; J2270

== ENCOUNTER 2018-02-23 12:44 | Inpatient (IN) | payer MEDICARE ==
--- NOTE | 2018-02-23 13:17 | ER Document Report ---
ED Medical Screen (RME) - General Chief Complaint: Chest Pain Stated Complaint: CHEST PAIN, GROIN PAIN Time Seen by Provider: 02/23/18 13:16 TRAVEL OUTSIDE OF THE [place] IN LAST 30 DAYS: No - HPI Notes: 02/23/18 13:17 Left inguinal hernia pain ongoing for the last 10 days and chest pain - Related Data Allergies/Adverse Reactions: amoxicillin [Amoxicillin] Allergy (Unknown, Verified 02/23/18 12:45) ampicillin [Ampicillin] Allergy (Unknown, Verified 02/23/18 12:45) ceftriaxone sodium [From Rocephin] Allergy (Unknown, Verified 02/23/18 12:45) Cephalosporins Allergy (Unknown, Verified 02/23/18 12:45) Penicillins Allergy (Unknown, Verified 02/23/18 12:45) tetracycline [Tetracycline] Allergy (Unknown, Verified 02/23/18 12:45) Past Medical History - Past Medical History Cardiac Medical History: Reports: Hx Hypercholesterolemia, Hx Hypertension Denies: Hx Congestive Heart Failure, Hx Heart Attack Renal/ Medical History: Denies: Hx Peritoneal Dialysis GI Medical History: Reports: Hx Gastroesophageal Reflux Disease - PPI dependent Musculoskeltal Medical History: Reports Hx Arthritis, Reports Hx Musculoskeletal Deformity, Reports Hx Musculoskeletal Trauma Past Surgical History: Reports: Hx Appendectomy, Hx Orthopedic Surgery - Immunizations Hx Diphtheria, Pertussis, Tetanus Vaccination: Yes - 2016 History of Influenza Vaccine for 12/2016 - 05/2017 Season: No Review of Systems - Review of Systems Cardiovascular: Chest pain Gastrointestinal: Other - Hernia pain -: Yes All other systems reviewed and negative Physical Exam - Vital signs Vitals: Temp Pulse Resp BP Pulse Ox 99.2 F 70 18 178/100 H 96 02/23/18 12:48 02/23/18 12:48 02/23/18 12:48 02/23/18 12:48 02/23/18 12:48 - Respiratory Respiratory status: No respiratory distress Chest status: Nontender Breath sounds: Normal Chest palpation: Normal - Cardiovascular Rhythm: Regular Heart sounds: Normal auscultation Course - Vital Signs Vital signs: Temp Pulse Resp BP Pulse Ox 99.2 F 70 18 178/100 H 96 02/23/18 12:48 02/23/18 12:48 02/23/18 12:48 02/23/18 12:48 02/23/18 12:48
[2018-02-23 13:55] LABS: ABSOLUTE EOSINOPHILS # (AUTO) 0.1 10^3/uL (0.0-0.6); ABSOLUTE LYMPHOCYTES (AUTO) 1.5 10^3/uL (0.5-4.7); ABSOLUTE MONOCYTES (AUTO) 0.3 10^3/uL (0.1-1.4); ABSOLUTE NEUT (AUTO) 1.5 10^3/uL (1.7-8.2); BASOPHILS % (AUTO) 1.1 % (0-2); HEMATOCRIT 47.3 % (37.9-51.0); HEMOGLOBIN 16.4 g/dL (13.5-17.0); LYMPHOCYTES % (AUTO) 43.5 % (13-45); MEAN CORPUSCULAR HEMOGLOBIN 33.5 pg (27.0-33.4); MEAN CORPUSCULAR HGB CONC 34.6 g/dL (32.0-36.0); MEAN CORPUSCULAR VOLUME 97 fl (80-97); MONOCYTES % (AUTO) 9.2 % (3-13); RED BLOOD COUNT 4.89 10^6/uL (4.35-5.55); RED CELL DISTRIBUTION WIDTH 13.3 % (11.5-14.0); SEGMENTED NEUTROPHILS % (AUTO) 44.2 % (42-78); TOTAL CELLS COUNTED % (AUTO) 100 %; WHITE BLOOD COUNT 3.5 10^3/uL (4.0-10.5)
--- NOTE | 2018-02-23 13:59 | RADIOLOGY REPORT (SQ) ---
EXAM DESCRIPTION: CHEST SINGLE VIEW COMPLETED DATE/TIME: 02/23/2018 1:50 pm REASON FOR STUDY: cp COMPARISON: 02/09/2018 EXAM PARAMETERS: NUMBER OF VIEWS: One view. TECHNIQUE: Single frontal radiographic view of the chest acquired. RADIATION DOSE: NA LIMITATIONS: None. FINDINGS: LUNGS AND PLEURA: No opacities, masses or pneumothorax. No pleural effusion. MEDIASTINUM AND HILAR STRUCTURES: No masses. Contour normal. HEART AND VASCULAR STRUCTURES: Heart normal in size. Normal vasculature. BONES: No acute findings. HARDWARE: None in the chest. OTHER: No other significant finding. IMPRESSION: NO ACUTE RADIOGRAPHIC FINDING IN THE CHEST. TECHNICAL DOCUMENTATION: JOB ID: [id number] [employer]- All Rights Reserved Reading location - IP/workstation name: [email or web address]
--- NOTE | 2018-02-23 14:08 | ER Document Report ---
ED General - General Mode of Arrival: Ambulatory Information source: Patient TRAVEL OUTSIDE OF THE [place] IN LAST 30 DAYS: No <JONO SWAIN - Last Filed: 02/23/18 14:13> <JONES MURGUIA - Last Filed: 02/23/18 19:26> - General Chief Complaint: Chest Pain Stated Complaint: CHEST PAIN, GROIN PAIN Time Seen by Provider: 02/23/18 13:16 Notes: Patient is a 63 year old male with a HTN, chronic chest pain and a history of alcohol withdrawal presents to the emergency department complaining of left inguinal pain and chest pain. Patient states he has had progressively worsening pain of his left inguinal hernia over the last 10 days. He states the pain causes chest pain and vomiting and further states he has lost approximately 5-6 lbs. Patient was seen here on February 09, 2018 complaining of similar symptoms and was discharged with a diagnosis of diverticulitis and given a referral to a general surgeon. Patient states he was unable to have any follow up care due to not having any insurance. (JONO SWAIN) 63-year-old male patient complains of chest pain which is a chronic problem. Also complains of severe pain in his left groin with swelling. He was seen here on 02/09/2018 with the same complaints. At that time he had an easily reduced left inguinal hernia and a CT scan performed that showed a fat- containing hernia. He states since then it has gotten bigger more painful and will not go back in. He states he has not been able to work the last 10 days due to the pain and swelling of the hernia. He also reports that he has been unable to eat and frequently vomits or regurgitates when he tries to eat. He does take proton pump inhibitors on a regular basis for reflux. Patient reports she last tried to eat about 11 AM today, and ate some spaghetti but states she did not eat very much. The nurse gave the patient morphine 7.5 mg IV along with Zofran 8 mg IV, after this I lower the back of the stretcher, allow the patient to try to relax enough to allow me to reduce the hernia. It did reduce with constant gentle pressure and a defect that was felt to be approximately 1.5 cm was palpated. Patient does admit to drinking 4 beers on a daily basis states he has been drinking like this because of his pain. He was here in September 2017 with alcohol withdrawal and his chronic chest pain. He states he has not had medication for his high blood pressure in over a year. States he does take [id number]-[id number]-[id number] Nexium about every other day for his reflux symptoms. (JONES MURGUIA) - Related Data Allergies/Adverse Reactions: amoxicillin [Amoxicillin] Allergy (Unknown, Verified 02/23/18 17:26) ampicillin [Ampicillin] Allergy (Unknown, Verified 02/23/18 17:26) ceftriaxone sodium [From Rocephin] Allergy (Unknown, Verified 02/23/18 17:) Cephalosporins Allergy (Unknown, Verified 02/23/18 17:26) Penicillins Allergy (Unknown, Verified 02/23/18 17:) tetracycline [Tetracycline] Allergy (Unknown, Verified 02/23/18 17:) Past Medical History - General Information source: Patient - Social History Smoking Status: Never Smoker Chew tobacco use (# tins/day): No Frequency of alcohol use: Heavy Drug Abuse: None Family History: Reviewed & Not Pertinent, Arthritis, Hypertension Patient has suicidal ideation: No Patient has homicidal ideation: No - Past Medical History Cardiac Medical History: Reports: Hx Hypercholesterolemia, Hx Hypertension GI Medical History: Reports: Hx Gastroesophageal Reflux Disease - PPI dependent Musculoskeletal Medical History: Reports Hx Arthritis, Reports Hx Musculoskeletal Deformity, Reports Hx Musculoskeletal Trauma Past Surgical History: Reports: Hx Appendectomy, Hx Orthopedic Surgery - Immunizations Hx Diphtheria, Pertussis, Tetanus Vaccination: Yes - 2015 <JONO SWAIN - Last Filed: 02/23/18 14:13> Review of Systems - Review of Systems Constitutional: No symptoms reported EENT: No symptoms reported Cardiovascular: See HPI, Chest pain Respiratory: No symptoms reported Gastrointestinal: No symptoms reported Genitourinary: No symptoms reported Male Genitourinary: No symptoms reported Musculoskeletal: See HPI Skin: No symptoms reported Hematologic/Lymphatic: No symptoms reported Neurological/Psychological: No symptoms reported -: Yes All other systems reviewed and negative <JONO SWAIN - Last Filed: 02/23/18 14:13> Physical Exam <JONO SWAIN - Last Filed: 02/23/18 14:13> <JONES MURGUIA - Last Filed: 02/23/18 19:26> - Vital signs Vitals: Temp Pulse Resp BP Pulse Ox 99.2 F 70 18 178/100 H 96 02/23/18 12:48 02/23/18 12:48 02/23/18 12:48 02/23/18 12:48 02/23/18 12:48 - Notes Notes: GENERAL: Alert, interacts well. No acute distress. HEAD: Normocephalic, atraumatic. EYES: Pupils equal, round, and reactive to light. Extraocular movements intact. ENT: Oral mucosa moist, tongue midline. NECK: Full range of motion. Supple. Trachea midline. LUNGS: Clear to auscultation bilaterally, no wheezes, rales, or rhonchi. No respiratory distress. HEART: Regular rate and rhythm. No murmurs, gallops, or rubs. ABDOMEN: Soft, non-tender. Non-distended. Left inguinal mass which is firm to palpation and tender to palpation, does not reduce at this time. Bowel sounds present in all 4 quadrants. EXTREMITIES: Moves all 4 extremities spontaneously. NEUROLOGICAL: Alert and oriented x3. Normal speech. PSYCH: Normal affect, normal mood. SKIN: Warm, dry, normal turgor. No rashes or lesions noted. (JONO SWAIN) Course - Laboratory Result Diagrams: 02/23/18 13:34 02/23/18 13:34 <JONO SWAIN - Last Filed: 02/23/18 14:13> - Laboratory Result Diagrams: 02/23/18 13:34 02/23/18 13:34 - Diagnostic Test Radiology reviewed: Image reviewed, Reports reviewed - Chest x-ray is unremarkable - EKG Interpretation by Wy EKG shows normal: Sinus rhythm, [place], Intervals, ST-T Waves. abnormal: QRS Complexes Rate: Normal - 64 Rhythm: NSR [place]/QRS: RBBB, LAHB/LAFB - Consults Dr. Lechuga Time consulted: 14:12 Consulted provider: will come to ER - Dr. Lechuga is currently starting a case in the operating room, and will be available when he finishes that case. <JONES MURGUIA - Last Filed: 02/23/18 19:26> - Vital Signs Vital signs: Temp Pulse Resp BP Pulse Ox 98.7 F 70 11 L 141/81 H 94 02/23/18 18:32 02/23/18 12:48 02/23/18 18:01 02/23/18 18:00 02/23/18 18:01 - Laboratory Laboratory results interpreted by me: 02/23/18 02/23/18 02/23/18 13:34 13:34 16:40 WBC 3.5 L MCH 33.5 H Plt Count 60 L Absolute Neutrophils 1.5 L Total Bilirubin 1.5 H AST 139 H Total Protein 9.0 H Urine Urobilinogen 4.0 H Discharge <JONO SWAIN - Last Filed: 02/23/18 14:13> - Discharge Admitting Provider: Surgicalist Unit Admitted: Surgical Floor <JONES MURGUIA - Last Filed: 02/23/18 19:26> - Discharge Clinical Impression: Left inguinal hernia, Chronic chest pain Hypertension Qualifiers: Hypertension type: essential hypertension Qualified Code(s): I10 - Essential ( primary) hypertension Condition: Stable Disposition: ADMITTED INPATIENT Scribe Attestation: 02/23/18 18:12 I personally performed the services described in the documentation, reviewed and edited the documentation which was dictated to the scribe in my presence, and it accurately records my words and actions. (JONES MURGUIA) Scribe Documentation - Scribe Written by Guerda:: Guerda Wright, 02/23/2018 14:11 acting as scribe for :: Geovany <JONO SWAIN - Last Filed: 02/23/18 14:13>
[2018-02-23 14:11] LABS: ALANINE AMINOTRANSFERASE 55 U/L (21-72); ALBUMIN 4.2 g/dL (3.5-5.0); ALKALINE PHOSPHATASE 91 U/L (38-126); ANION GAP 13 (5-19); ASPARTATE AMINO TRANSFERASE 139 U/L (17-59); BILIRUBIN,DIRECT 0.4 mg/dL (0.0-0.4); BILIRUBIN,TOTAL 1.5 mg/dL (0.2-1.3); BLOOD UREA NITROGEN 11 mg/dL (7-20); CALCIUM 9.2 mg/dL (8.4-10.2); CARBON DIOXIDE 26 mmol/L (22-30); CHLORIDE 105 mmol/L (98-107); CREATINE KINASE 114 U/L (55-170); GLUCOSE 110 mg/dL (75-110); LIPASE 267.8 U/L (23-300); POTASSIUM 3.9 mmol/L (3.6-5.0); SODIUM 143.9 mmol/L (137-145)
[2018-02-23] MEDS ORDERED: MORPHINE SULFATE 10 MG/ML INJ IV ONE (14:16)
[2018-02-23] MEDS ORDERED: ONDANSETRON HCL INJ/PF 4 MG/2 ML SDV IV ONE (14:16)
[2018-02-23 14:23] LABS: CREATINE KINASE MB 2.25 ng/mL (<4.55); TROPONIN I 0.021 ng/mL
[2018-02-23 14:34] LABS: PLATELET COUNT 60 10^3/uL (150-450)
[2018-02-23] MEDS ORDERED: KETOROLAC TROMETHAMINE INJ/PF 30 MG/1 ML SDV IV ONE (16:17)
[2018-02-23] MEDS ORDERED: DEXTROSE 5%-LACTATED RINGERS 1,000 ML IV ONE (16:18)
[2018-02-23 17:00] LABS: APPEARANCE,URINE CLEAR; BILIRUBIN,URINE NEGATIVE (NEGATIVE); COLOR,URINE YELLOW; GLUCOSE, URINE NEGATIVE (NEGATIVE); KETONES,URINE NEGATIVE (NEGATIVE); LEUKOCYTE ESTERASE,URINE NEGATIVE (NEGATIVE); NITRITE,URINE NEGATIVE (NEGATIVE); PROTEIN,URINE NEGATIVE (NEGATIVE); URINE SPECIFIC GRAVITY 1.017
[2018-02-23] MEDS ORDERED: CEFAZOLIN INJ 1 GM VIAL IV ONE (20:20)
--- NOTE | 2018-02-23 20:20 | PDOC H&P ---
History of Present Illness Admission Date/PCP: 02/23/18 18:29 Patient complains of: Left inguinal hernia History of Present Illness: JING BONILLA is a 63 year old male Who presents to the emergency department complaining of left inguinal pain. He has a known history of incarcerated left inguinal hernia demonstrated on physical examination. He has been seen in the emergency department on more than one occasion for same complaint. He is referred to [facility] for operative repair on an outpatient basis but due to financial issues would not follow-up. He is now back in the emergency department with an incarcerated inguinal hernia. After receiving pain medication, Dr. Byers was able to reduce the hernia. Patient is now being admitted for operative repair. He has no history of nausea vomiting diarrhea constipation. 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 Drugs: None Hx Prescription Drug Abuse: No Family History Family History: Reviewed & Not Pertinent, Arthritis, Hypertension Parental Family History Reviewed: Yes Children Family History Reviewed: Yes Sibling(s) Family History Reviewed.: Yes Medication/Allergy Home Medications: Aspirin [Aspirin 325 mg Tablet] 325 mg PO DAILY 02/23/18 Esomeprazole Magnesium [Nexium 24Hr] 20 mg PO Q48H 02/23/18 Allergies/Adverse Reactions: amoxicillin [Amoxicillin] Allergy (Unknown, Verified 02/23/18 17:26) ampicillin [Ampicillin] Allergy (Unknown, Verified 02/23/18 17:26) ceftriaxone sodium [From Rocephin] Allergy (Unknown, Verified 02/23/18 17:26) Cephalosporins Allergy (Unknown, Verified 02/23/18 17:26) Penicillins Allergy (Unknown, Verified 02/23/18 17:26) tetracycline [Tetracycline] Allergy (Unknown, Verified 02/23/18 17:26) Review of Systems Constitutional: PRESENT: as per HPI Eyes: ABSENT: visual disturbances Ears: ABSENT: hearing changes Cardiovascular: ABSENT: chest pain, dyspnea on exertion, edema, orthropnea, palpitations Respiratory: ABSENT: cough, hemoptysis Gastrointestinal: PRESENT: as per HPI Physical Exam Vital Signs: Temp Pulse Resp BP Pulse Ox 98.7 F 70 11 L 141/81 H 94 02/23/18 18:32 02/23/18 12:48 02/23/18 18:01 02/23/18 18:00 02/23/18 18:01 General appearance: PRESENT: mild distress Head exam: PRESENT: normocephalic Eye exam: PRESENT: EOMI Mouth exam: PRESENT: dry mucosa Neck exam: PRESENT: full ROM Respiratory exam: PRESENT: clear to auscultation rogelio Cardiovascular exam: PRESENT: RRR GI/Abdominal exam: PRESENT: other - Soft, nontender no peritoneal signs no rigidity. Did Rectal exam: PRESENT: deferred Gentrourinary exam: PRESENT: other - Left inguinal area is tender, but there is no incarcerated hernia; in fact there is only a hernia defect. Testes descended bilaterally. Penis circumcised Neurological exam: PRESENT: alert, awake, oriented to person, oriented to place Psychiatric exam: PRESENT: agitated Results Impressions: Chest X-Ray 02/23/18 13:16 IMPRESSION: NO ACUTE RADIOGRAPHIC FINDING IN THE CHEST. Assessment & Plan - Diagnosis (1) Left inguinal hernia Is this a current diagnosis for this admission?: Yes Plan: Impression: Symptomatic, recurrent incarcerated left inguinal hernia; Currently reduced Recommendations: 1. Admit, n.p.o. after midnight, IV fluids, and for open repair left inguinal hernia tomorrow morning, February 24, Dr. Kirby. 2. Anticipate possible alcohol withdrawal (2) Chronic chest pain Is this a current diagnosis for this admission?: Yes (3) Abnormal LFTs Is this a current diagnosis for this admission?: Yes (4) Alcohol abuse Is this a current diagnosis for this admission?: Yes (5) Hyperlipidemia Qualifiers: Is this a current diagnosis for this admission?: Yes (6) Hypertension Qualifiers: - Time Time Spent: 30 to 50 Minutes Medications reviewed and adjusted accordingly: Yes Anticipated discharge: Home - Inpatient Certification Based on my medical assessment, after consideration of the patient's comorbidities, presenting symptoms, or acuity I expect that the services needed warrant INPATIENT care.: Yes I certify that my determination is in accordance with my understanding of Medicare's requirements for reasonable and necessary INPATIENT services [42 CFR 412.3e].: Yes Medical Necessity: Need For IV Fluids, Need for Pain Control, Need for IV Antibiotics, Need for Surgery
[2018-02-23] MEDS ORDERED: CEFAZOLIN SODIUM 1.5 GM in DEXTROSE 5%-WATER 100 ML IV ONE (22:00)
[2018-02-23] MEDS: KETOROLAC TROMETHAMINE INJ/PF 30 MG/1 ML SDV IV SCH (22:17)
[2018-02-23] MEDS: ACETAMINOPHEN 1,000 MG/100 ML RTUPB IV SCH (23:16)
[2018-02-23] MEDS: NORMAL SALINE 1000 ML 1,000 ML IV PRN (23:16)
[2018-02-23] MEDS ORDERED: CEFAZOLIN INJ 1 GM VIAL ONE (23:48)
[2018-02-24] MEDS ORDERED: ACETAMINOPHEN INJ/PF 1000 MG/100 ML SDV IV SCH
[2018-02-24] MEDS: KETOROLAC TROMETHAMINE INJ/PF 30 MG/1 ML SDV IV SCH ×4 (00:39→17:06)
[2018-02-24] MEDS: ACETAMINOPHEN 1,000 MG/100 ML RTUPB IV SCH ×4 (06:07→23:14)
[2018-02-24 08:48] LABS: ABSOLUTE EOSINOPHILS # (AUTO) 0.1 10^3/uL (0.0-0.6); ABSOLUTE LYMPHOCYTES (AUTO) 1.1 10^3/uL (0.5-4.7); ABSOLUTE MONOCYTES (AUTO) 0.3 10^3/uL (0.1-1.4); ABSOLUTE NEUT (AUTO) 0.9 10^3/uL (1.7-8.2); EOSINOPHILS % (AUTO) 4.4 % (0-6); HEMATOCRIT 40.4 % (37.9-51.0); LYMPHOCYTES % (AUTO) 47.2 % (13-45); MEAN CORPUSCULAR HEMOGLOBIN 33.8 pg (27.0-33.4); MEAN CORPUSCULAR HGB CONC 34.8 g/dL (32.0-36.0); MEAN CORPUSCULAR VOLUME 97 fl (80-97); MONOCYTES % (AUTO) 11.3 % (3-13); RED BLOOD COUNT 4.16 10^6/uL (4.35-5.55); RED CELL DISTRIBUTION WIDTH 13.1 % (11.5-14.0); SEGMENTED NEUTROPHILS % (AUTO) 36.1 % (42-78); TOTAL CELLS COUNTED % (AUTO) 100 %
[2018-02-24 09:21] LABS: WHITE BLOOD COUNT 2.4 10^3/uL (4.0-10.5)
[2018-02-24 09:23] LABS: PLATELET COUNT 41 10^3/uL (150-450)
[2018-02-24] MEDS ORDERED: VANCOMYCIN HCL 1,000 MG in DEXTROSE 5%-WATER 250 ML IV PRN (11:37)
[2018-02-24] MEDS: NORMAL SALINE 1000 ML 1,000 ML IV PRN ×2 (11:41→17:07)
[2018-02-24] MEDS ORDERED: CEFAZOLIN 2 GM/D5W RTU 2 GM/50 ML RTUPB IV SCH (12:00)
[2018-02-24] MEDS ORDERED: PROPOFOL INJ 200 MG/20 ML VIAL IV ONE (13:01)
[2018-02-24] MEDS ORDERED: FENTANYL CITRATE INJ/PF 100 MCG/2 ML AMPUL ONE (13:01)
[2018-02-24] MEDS ORDERED: ACETAMINOPHEN 0 MG/0 ML RTUPB IV ONE (13:01)
[2018-02-24] MEDS ORDERED: HYDROMORPHONE HCL INJ/PF 2 MG/ML AMPULE ONE (13:01)
[2018-02-24] MEDS ORDERED: MIDAZOLAM 2 MG/2 ML INJ ONE (13:01)
--- NOTE | 2018-02-24 13:08 | EKG REPORT ---
SEVERITY:- ABNORMAL ECG - SINUS RHYTHM INCOMPLETE RBBB AND LAFB : Confirmed by: Maday Anaya MD 24-Feb-2018 13:07:55
[2018-02-24 13:18] LABS: ABSOLUTE EOSINOPHILS # (AUTO) 0.1 10^3/uL (0.0-0.6); ABSOLUTE MONOCYTES (AUTO) 0.2 10^3/uL (0.1-1.4); ABSOLUTE NEUT (AUTO) 1.1 10^3/uL (1.7-8.2); BASOPHILS % (AUTO) 0.7 % (0-2); EOSINOPHILS % (AUTO) 3.6 % (0-6); HEMATOCRIT 39.6 % (37.9-51.0); HEMOGLOBIN 13.9 g/dL (13.5-17.0); LYMPHOCYTES % (AUTO) 41.8 % (13-45); MEAN CORPUSCULAR HEMOGLOBIN 33.9 pg (27.0-33.4); MEAN CORPUSCULAR HGB CONC 35.1 g/dL (32.0-36.0); MEAN CORPUSCULAR VOLUME 97 fl (80-97); MONOCYTES % (AUTO) 9.9 % (3-13); RED BLOOD COUNT 4.11 10^6/uL (4.35-5.55); RED CELL DISTRIBUTION WIDTH 12.9 % (11.5-14.0); TOTAL CELLS COUNTED % (AUTO) 100 %; WHITE BLOOD COUNT 2.5 10^3/uL (4.0-10.5)
[2018-02-24 13:37] LABS: PLATELET COUNT 53 10^3/uL (150-450)
[2018-02-24] MEDS ORDERED: BUPIVACAINE HCL 0.25 % INJ/PF (2.5 MG/1 ML) 30 ML VIAL ONE (13:39)
[2018-02-24 14:58] LABS: INTERNATIONAL RATION (INR) 1.38; PROTHROMBIN TIME 17.7 SEC (11.4-15.4)
--- NOTE | 2018-02-24 17:47 | PDOC PROGRESS REPORT ---
Subjective Progress Note for:: 02/24/18 Subjective:: left groin pains with eay hernia recurrence on mild straining while on bed Reason For Visit: INCARCERATED LEFT INGUINAL HERNIA Physical Exam Vital Signs: Temp Pulse Resp BP Pulse Ox 98.4 F 49 L 10 L 121/73 94 02/24/18 16:15 02/24/18 16:15 02/24/18 16:15 02/24/18 16:15 02/24/18 16:15 Intake & Output 02/23/18 02/24/18 02/25/18 06:59 06:59 06:59 Intake Total 2199 1931 Output Total 0 Balance 2199 1931 Exam: reduced left inguinal hernia but easily comes back with pains with mild straining Results Laboratory Results: 02/24/18 12:59 02/24/18 02/24/18 02/24/18 08:29 09:59 12:59 WBC 2.4 L D 2.5 L RBC 4.16 L 4.11 L Hgb 14.0 D 13.9 Hct 40.4 39.6 MCV 97 97 MCH 33.8 H 33.9 H MCHC 34.8 35.1 RDW 13.1 12.9 Plt Count 41 L 53 L Seg Neutrophils % 36.1 L 44.0 Lymphocytes % 47.2 H 41.8 Monocytes % 11.3 9.9 Eosinophils % 4.4 3.6 Basophils % 1.0 0.7 Absolute Neutrophils 0.9 L 1.1 L Absolute Lymphocytes 1.1 1.0 Absolute Monocytes 0.3 0.2 Absolute Eosinophils 0.1 0.1 Absolute Basophils 0.0 0.0 Blood Type O POSITIVE Antibody Screen NEGATIVE Impressions: Chest X-Ray 02/23/18 13:16 IMPRESSION: NO ACUTE RADIOGRAPHIC FINDING IN THE CHEST. Assessment & Plan - Diagnosis (1) Incarcerated left inguinal hernia Is this a current diagnosis for this admission?: Yes - Time Time Spent with patient: 15-24 minutes - Inpatient Certification Medical Necessity: Need for Pain Control, Need for Surgery, Risk of Complication if Not Cared For in Hospital - Plan Summary Plan Summary: Given a single donor platelet for Platelet count 40,000 but only came up to 50, 000. Surgery for left inguinal hernia was canceled because no more platelets to give if encounters bleeding during surgery. Anesthesia also hesitant to give general intubation anesthesia because of possible varices. Patient drinks everyday. INR and PT slightly elevated. Will recheck Platelets, PT/INR stephanie for possible repair of left incarcerated inguinal hernia that is at present reduced but easily comes back with pains.
[2018-02-24] MEDS: MORPHINE SULFATE 10 MG/ML INJ IV PRN ×2 (18:02→23:14)
[2018-02-25] MEDS: MORPHINE SULFATE 10 MG/ML INJ IV PRN ×3 (05:42→16:12)
[2018-02-25] MEDS: ACETAMINOPHEN 1,000 MG/100 ML RTUPB IV SCH ×2 (05:44→12:00)
[2018-02-25 06:00] LABS: ABSOLUTE EOSINOPHILS # (AUTO) 0.1 10^3/uL (0.0-0.6); ABSOLUTE LYMPHOCYTES (AUTO) 0.8 10^3/uL (0.5-4.7); ABSOLUTE MONOCYTES (AUTO) 0.3 10^3/uL (0.1-1.4); ABSOLUTE NEUT (AUTO) 1.6 10^3/uL (1.7-8.2); BASOPHILS % (AUTO) 0.7 % (0-2); EOSINOPHILS % (AUTO) 3.3 % (0-6); HEMATOCRIT 38.7 % (37.9-51.0); HEMOGLOBIN 13.5 g/dL (13.5-17.0); INTERNATIONAL RATION (INR) 1.42; LYMPHOCYTES % (AUTO) 29.4 % (13-45); MEAN CORPUSCULAR HEMOGLOBIN 34.2 pg (27.0-33.4); MEAN CORPUSCULAR HGB CONC 34.8 g/dL (32.0-36.0); MEAN CORPUSCULAR VOLUME 98 fl (80-97); MONOCYTES % (AUTO) 9.5 % (3-13); PROTHROMBIN TIME 18.1 SEC (11.4-15.4); RED BLOOD COUNT 3.94 10^6/uL (4.35-5.55); RED CELL DISTRIBUTION WIDTH 12.9 % (11.5-14.0); SEGMENTED NEUTROPHILS % (AUTO) 57.1 % (42-78); TOTAL CELLS COUNTED % (AUTO) 100 %; WHITE BLOOD COUNT 2.8 10^3/uL (4.0-10.5)
[2018-02-25 06:28] LABS: PLATELET COUNT 45 10^3/uL (150-450)
--- NOTE | 2018-02-25 09:32 | PDOC PROGRESS REPORT ---
Subjective Progress Note for:: 02/25/18 Subjective:: This is a 63-year-old male with an incarcerated left inguinal hernia. The patient still reports pain today. Denies nausea or vomiting. He denies chest pain, shortness of breath, fevers, chills, headache, tremors, blurry vision. Reason For Visit: INCARCERATED LEFT INGUINAL HERNIA Physical Exam Vital Signs: Temp Pulse Resp BP Pulse Ox 99.4 F 70 20 120/69 95 02/25/18 07:14 02/25/18 07:14 02/25/18 07:14 02/25/18 07:14 02/25/18 07:14 Intake & Output 02/24/18 02/25/18 02/26/18 06:59 06:59 06:59 Intake Total 2200 3082 216 Output Total 250 Balance 2200 2832 216 Weight 75.2 kg General appearance: PRESENT: cooperative, mild distress - Groin pain Head exam: PRESENT: atraumatic, normocephalic Eye exam: PRESENT: EOMI, PERRLA. ABSENT: scleral icterus Mouth exam: PRESENT: moist, neck supple Neck exam: ABSENT: meningismus, tenderness, thyromegaly, tracheal deviation Respiratory exam: PRESENT: clear to auscultation rogelio Cardiovascular exam: PRESENT: RRR Pulses: PRESENT: normal radial pulses Vascular exam: PRESENT: normal capillary refill. ABSENT: pallor GI/Abdominal exam: PRESENT: soft, tenderness - Left inguinal canal. ABSENT: rigid Rectal exam: PRESENT: deferred Extremities exam: ABSENT: clubbing Musculoskeletal exam: ABSENT: deformity Neurological exam: PRESENT: alert, awake, oriented to person, oriented to place , oriented to time, oriented to situation, CN II-XII grossly intact. ABSENT: motor sensory deficit Psychiatric exam: ABSENT: agitated, anxious, depressed Skin exam: ABSENT: cyanosis, erythema, jaundice Results Laboratory Results: 02/25/18 05:25 02/24/18 02/24/18 02/25/18 09:59 12:59 05:25 WBC 2.5 L 2.8 L RBC 4.11 L 3.94 L Hgb 13.9 13.5 Hct 39.6 38.7 MCV 97 98 H MCH 33.9 H 34.2 H MCHC 35.1 34.8 RDW 12.9 12.9 Plt Count 53 L 45 L Seg Neutrophils % 44.0 57.1 Lymphocytes % 41.8 29.4 Monocytes % 9.9 9.5 Eosinophils % 3.6 3.3 Basophils % 0.7 0.7 Absolute Neutrophils 1.1 L 1.6 L Absolute Lymphocytes 1.0 0.8 Absolute Monocytes 0.2 0.3 Absolute Eosinophils 0.1 0.1 Absolute Basophils 0.0 0.0 Blood Type O POSITIVE Antibody Screen NEGATIVE Impressions: Chest X-Ray 02/23/18 13:16 IMPRESSION: NO ACUTE RADIOGRAPHIC FINDING IN THE CHEST. Assessment & Plan - Diagnosis (1) Incarcerated left inguinal hernia Is this a current diagnosis for this admission?: Yes - Plan Summary Plan Summary: This is a 63-year-old male with an incarcerated left inguinal hernia. Is a history of alcoholism and low platelets today. His platelet count was a proximally 45. He is status post transfusion of 1 unit of platelets. He has another platelet transfusion ready to go, to be transfused in the OR. Plan for open left inguinal hernia today with platelet transfusion in the OR. Risks/ benefits discussed, informed consent obtained, and all questions answered.
[2018-02-25] MEDS ORDERED: BUPIVACAINE HCL 0.25 % INJ/PF (2.5 MG/1 ML) 30 ML VIAL ONE (10:34)
[2018-02-25] MEDS ORDERED: CLINDAMYCIN 900 MG/D5W RTU 900 MG/50 ML RTUPB IV ONE (12:07)
[2018-02-25] MEDS ORDERED: LIDOCAINE 1% INJ-PF (10 MG/ML) 30 ML SDV ONE (12:09)
[2018-02-25] MEDS ORDERED: FENTANYL CITRATE INJ/PF 100 MCG/2 ML AMPUL ONE (12:32)
[2018-02-25] MEDS ORDERED: PROPOFOL INJ 200 MG/20 ML VIAL IV ONE (12:33)
[2018-02-25] MEDS ORDERED: MIDAZOLAM 2 MG/2 ML INJ ONE (12:33)
[2018-02-25] MEDS ORDERED: DIPHENHYDRAMINE HCL 50 MG/ML VIAL IV PRN (13:19)
[2018-02-25] MEDS ORDERED: FENTANYL CITRATE INJ/PF 100 MCG/2 ML AMPUL IV PRN ×3 (13:19)
[2018-02-25] MEDS: FENTANYL CITRATE INJ/PF 100 MCG/2 ML AMPUL ONE ×2 (14:30→14:35)
[2018-02-25] MEDS ORDERED: KETOROLAC TROMETHAMINE INJ/PF 30 MG/1 ML SDV ONE (14:37)
[2018-02-25] MEDS ORDERED: ACETAMINOPHEN 1,000 MG/100 ML RTUPB IV ONE (14:37)
--- NOTE | 2018-02-25 14:44 | Operative Report ---
Nonrecallable Operative Report DATE OF SURGERY: 02/25/18 PREOPERATIVE DIAGNOSIS: Incarcerated left inguinal hernia POSTOPERATIVE DIAGNOSIS: Incarcerated, indirect left inguinal hernia OPERATION: Open left inguinal hernia repair with plug and patch mesh SURGEON: CLARE RENNER ANESTHESIA: LMAC TISSUE REMOVED OR ALTERED: None COMPLICATIONS: None apparent ESTIMATED BLOOD LOSS: Minimal PROCEDURE: Drains/implants: Large Bard plug and patch. Procedure in detail: After informed consent was obtained, the patient was brought to the operating room and laid in the supine position. The area of the left groin was prepped and draped in normal sterile fashion. The groin was anesthetized with quarter percent Marcaine mixed with 1% lidocaine. Injection was performed 2 cm inferior and medial to the ASIS, and along the left inguinal canal. An incision was created in the left groin using a 15 blade scalpel. Dissection was carried down to the external oblique aponeurosis using Bovie electrocautery and blunt dissection. The external oblique aponeurosis was incised with a 15 blade scalpel. It was thin and attenuated. A large hernia was easily identified in the inguinal canal. The hernia and cord structures were elevated away from the pubic tubercle and a [place] drain was placed posterior to the hernia and cord. The cord structures were elevated and the hernia sac was dissected free of the cord structures. A large lipoma of the cord was identified and reduced back into the abdomen, along with the hernia sac. A large Bard plug was used to occlude the defect. It was sewn into place using 0 Prolene suture in an interrupted fashion. The Bard patch was then placed over the inguinal floor. It was sutured into place using 0 Prolene suture in simple running fashion. The cord structures were placed through the keyhole. The keyhole was tightened enough to admit the tip of the pinky finger. The mesh patch was sewn inferiorly to Poupart's ligament and superiorly to the internal oblique aponeurosis. Once this was completed, the external oblique aponeurosis was sutured closed over the cord structures. This was done with 3-0 Vicryl suture in simple running fashion. Subcutaneous tissue was then closed using 3-0 Vicryl suture in simple running fashion. The overlying skin was closed using 4-0 Vicryl Rapide suture in subcuticular fashion. Dressings were then placed, and the procedure was concluded. All sponge, instrument, needle counts were correct x2. Condition: Stable.
[2018-02-25] MEDS: OXYCODONE HCL IR 5 MG TABLET PO PRN (18:28)
[2018-02-26] MEDS: MORPHINE SULFATE 10 MG/ML INJ IV PRN ×4 (00:05→23:16)
[2018-02-26] MEDS: OXYCODONE HCL IR 5 MG TABLET PO PRN ×2 (09:21→19:40)
--- NOTE | 2018-02-26 17:44 | PDOC PROGRESS REPORT ---
Subjective Progress Note for:: 02/26/18 Subjective:: c/o pains left inguinal incision site Reason For Visit: INCARCERATED LEFT INGUINAL HERNIA Physical Exam Vital Signs: Temp Pulse Resp BP Pulse Ox 100.3 F 69 16 146/77 H 98 02/26/18 15:23 02/26/18 15:23 02/26/18 15:23 02/26/18 15:23 02/26/18 15:23 Intake & Output 02/25/18 02/26/18 02/27/18 06:59 06:59 06:59 Intake Total 860 Output Total 1860 Balance -1000 Weight 83.8 kg Exam: left groin not inflamed with minimal swelling Results Impressions: Chest X-Ray 02/23/18 13:16 IMPRESSION: NO ACUTE RADIOGRAPHIC FINDING IN THE CHEST. Assessment & Plan - Diagnosis (1) Incarcerated left inguinal hernia Is this a current diagnosis for this admission?: Yes - Time Time Spent with patient: 15-24 minutes - Inpatient Certification Medical Necessity: Need for Pain Control, Risk of Complication if Not Cared For in Hospital - Plan Summary Plan Summary: Has one bottle of blood culture positive. However, wound looks good,afebrile. Manage pain and hopefully better controlled with po pain meds prior to discharge tomorrow.
[2018-02-26] MEDS: VANCOMYCIN HCL 1,250 MG in DEXTROSE 5%-WATER 250 ML IV SCH (23:15)
[2018-02-26] MEDS: ACETAMINOPHEN 325 MG TABLET PO PRN (23:16)
[2018-02-27] MEDS: MORPHINE SULFATE 10 MG/ML INJ IV PRN (05:09)
[2018-02-27 07:23] LABS: ABSOLUTE EOSINOPHILS # (AUTO) 0.1 10^3/uL (0.0-0.6); ABSOLUTE LYMPHOCYTES (AUTO) 1.7 10^3/uL (0.5-4.7); ABSOLUTE MONOCYTES (AUTO) 0.7 10^3/uL (0.1-1.4); ABSOLUTE NEUT (AUTO) 3.3 10^3/uL (1.7-8.2); BASOPHILS % (AUTO) 0.6 % (0-2); EOSINOPHILS % (AUTO) 2.2 % (0-6); HEMATOCRIT 39.4 % (37.9-51.0); MEAN CORPUSCULAR HEMOGLOBIN 34.3 pg (27.0-33.4); MEAN CORPUSCULAR HGB CONC 35.5 g/dL (32.0-36.0); MEAN CORPUSCULAR VOLUME 97 fl (80-97); MONOCYTES % (AUTO) 11.8 % (3-13); RED BLOOD COUNT 4.07 10^6/uL (4.35-5.55); RED CELL DISTRIBUTION WIDTH 12.7 % (11.5-14.0); SEGMENTED NEUTROPHILS % (AUTO) 56.4 % (42-78); TOTAL CELLS COUNTED % (AUTO) 100 %
[2018-02-27 08:22] LABS: WHITE BLOOD COUNT 5.8 10^3/uL (4.0-10.5)
[2018-02-27 08:24] LABS: PLATELET COUNT 57 10^3/uL (150-450)
--- NOTE | 2018-02-27 10:23 | PDOC PROGRESS REPORT ---
Subjective Progress Note for:: 02/27/18 Subjective:: Patient complaining of pain Reason For Visit: INCARCERATED LEFT INGUINAL HERNIA Physical Exam Vital Signs: Temp Pulse Resp BP Pulse Ox 99.7 F 69 14 140/79 H 94 02/27/18 07:42 02/27/18 07:42 02/27/18 07:42 02/27/18 07:42 02/27/18 07:42 Intake & Output 02/26/18 02/27/18 02/28/18 06:59 06:59 06:59 Intake Total 860 1706 Output Total 1860 3450 Balance -1000 -1744 Weight 83.8 kg 79.8 kg General appearance: PRESENT: no acute distress GI/Abdominal exam: PRESENT: other - Left inguinal area Steri-Strips in place; expected edema and ecchymosis, resolving Results Laboratory Results: 02/27/18 06:52 02/27/18 06:52 02/27/18 02/27/18 06:52 06:52 WBC 5.8 D RBC 4.07 L Hgb 14.0 Hct 39.4 MCV 97 MCH 34.3 H MCHC 35.5 RDW 12.7 Plt Count 57 L Seg Neutrophils % 56.4 Lymphocytes % 29.0 Monocytes % 11.8 Eosinophils % 2.2 Basophils % 0.6 Absolute Neutrophils 3.3 Absolute Lymphocytes 1.7 Absolute Monocytes 0.7 Absolute Eosinophils 0.1 Absolute Basophils 0.0 Creatinine 0.58 Est GFR ( Amer) > 60 Est GFR (Non-Af Amer) > 60 Impressions: Chest X-Ray 02/23/18 13:16 IMPRESSION: NO ACUTE RADIOGRAPHIC FINDING IN THE CHEST. Assessment & Plan - Diagnosis (1) Left inguinal hernia Is this a current diagnosis for this admission?: Yes Plan: Impression: Patient status post left inguinal herniorrhaphy, open, Dr. Álvarez, 48 hours ago, doing well, no complication Primary problem with patient has been pancytopenia, likely alcohol related marrow suppression. Recommendations: 1. Will discontinue narcotic pain medication; will use alternative medications 2. I have consulted Dr. Nilesh Salinas for evaluation and treatment of pancytopenia. 3. We will discontinue vancomycin, ambulate patient, get in shower. (2) Chronic chest pain Is this a current diagnosis for this admission?: Yes (3) Abnormal LFTs Is this a current diagnosis for this admission?: Yes (4) Alcohol abuse Is this a current diagnosis for this admission?: Yes (5) Hyperlipidemia Qualifiers: Is this a current diagnosis for this admission?: Yes (6) Hypertension Qualifiers:
[2018-02-27] MEDS ORDERED: KETOROLAC TROMETHAMINE 10 MG TABLET PO PRN (10:24)
[2018-02-27] MEDS: ACETAMINOPHEN 325 MG TABLET PO PRN ×2 (15:25→23:17)
--- NOTE | 2018-02-27 18:06 | PDOC CONSULTATION ---
Consultation Consult Date: 02/27/18 Consult reason:: Hematology consultation was requested for patient with low WBC count and low PLT, after hernia surgery. History of Present Illness Admission Date/PCP: 02/25/18 11:00 History of Present Illness: JING BONILLA is a 63 year old male who presented with a strangulated hernia. Urgent surgery was performed and patient states that he is anxious to go home tomorrow. He states that he does not have a PCP. He has been told in the past that he has low blood counts, including a low PLT count. He has also been told in the past that he had liver damage. Probably from chronic alcohol use. He has not had a liver biopsy or seen GI. He denies any significant bleeding issues. He denies recent infections. 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 - Advance Directive Resuscitation Status: Full Code Family History Family History: Reviewed & Not Pertinent, Arthritis, Hypertension Parental Family History Reviewed: Yes - Father [place]. MGF of [place] at age 58. PGF of [place] age 82 Children Family History Reviewed: Yes Sibling(s) Family History Reviewed.: Yes Medication/Allergy Home Medications: Aspirin [Aspirin 325 mg Tablet] 325 mg PO DAILY 02/23/18 Esomeprazole Magnesium [Nexium 24Hr] 20 mg PO Q48H 02/23/18 Allergies/Adverse Reactions: amoxicillin [Amoxicillin] Allergy (Unknown, Verified 02/23/18 17:26) ampicillin [Ampicillin] Allergy (Unknown, Verified 02/23/18 17:26) ceftriaxone sodium [From Rocephin] Allergy (Unknown, Verified 02/23/18 17:26) Cephalosporins Allergy (Unknown, Verified 02/23/18 17:26) Penicillins Allergy (Unknown, Verified 02/23/18 17:26) tetracycline [Tetracycline] Allergy (Unknown, Verified 02/23/18 17:26) Review of Systems Constitutional: ABSENT: fever(s), headache(s) Eyes: ABSENT: visual disturbances Ears: ABSENT: hearing changes Nose, Mouth, and Throat: ABSENT: sore throat Cardiovascular: PRESENT: palpitations Respiratory: ABSENT: dyspnea Gastrointestinal: PRESENT: abdominal pain. ABSENT: constipation, nausea Genitourinary: ABSENT: dysuria Musculoskeletal: ABSENT: back pain Integumentary: ABSENT: rash Hematologic/Lymphatic: ABSENT: easy bleeding, easy bruising Physical Exam Vital Signs: Temp Pulse Resp BP Pulse Ox 99.5 F 77 13 140/80 H 96 02/27/18 16:17 02/27/18 16:17 02/27/18 16:17 02/27/18 16:17 02/27/18 16:17 Intake & Output 02/26/18 02/27/18 02/28/18 06:59 06:59 06:59 Intake Total 860 1706 480 Output Total 1860 3450 850 Balance -1000 -5441 -370 Weight 83.8 kg 79.8 kg General appearance: PRESENT: thin Exam: 63 year old male. Head exam: PRESENT: atraumatic, normocephalic Eye exam: PRESENT: conjunctival injection, EOMI Mouth exam: PRESENT: tongue midline Teeth exam: PRESENT: poor dentation Neck exam: ABSENT: lymphadenopathy, tenderness Respiratory exam: PRESENT: clear to auscultation rogelio Cardiovascular exam: PRESENT: RRR. ABSENT: systolic murmur GI/Abdominal exam: PRESENT: organolmegaly - Liver enlarged, spleen not enlarged. , soft, tenderness Extremities exam: ABSENT: pedal edema Musculoskeletal exam: PRESENT: normal inspection Neurological exam: PRESENT: alert, awake Psychiatric exam: PRESENT: appropriate affect Skin exam: PRESENT: normal color Results Laboratory Results: 02/27/18 06:52 02/27/18 06:52 02/27/18 02/27/18 06:52 06:52 WBC 5.8 D RBC 4.07 L Hgb 14.0 Hct 39.4 MCV 97 MCH 34.3 H MCHC 35.5 RDW 12.7 Plt Count 57 L Seg Neutrophils % 56.4 Lymphocytes % 29.0 Monocytes % 11.8 Eosinophils % 2.2 Basophils % 0.6 Absolute Neutrophils 3.3 Absolute Lymphocytes 1.7 Absolute Monocytes 0.7 Absolute Eosinophils 0.1 Absolute Basophils 0.0 Creatinine 0.58 Est GFR ( Amer) > 60 Est GFR (Non-Af Amer) > 60 Impressions: Chest X-Ray 02/23/18 13:16 IMPRESSION: NO ACUTE RADIOGRAPHIC FINDING IN THE CHEST. Status: Image reviewed by me - CT abdomen last month, CT chest in September. Assessment & Plan - Diagnosis (1) Thrombocytopenia Is this a current diagnosis for this admission?: Yes Plan: Chronic over at least the last 5 years. Appears stable. Remains >50 without evidence of bleeding. Most likely due to chronic liver disease. His WBC count is now normal. Prior low WBC count has now resolved. Await tomorrow's results. I will continue to follow this as outpatient. I also looked at his peripheral smear. No evidence of TTP. All consistent with chronic liver disease. (2) Elevated liver chemistry Is this a current diagnosis for this admission?: Yes Plan: with increased PT/INR. Agree most likely due to alcohol, but I would recommend evaluation by GI if not already performed. This should be followed as outpatient. I will check Ferritin as a screen for hemochromatosis but consider hepatitis, HIV and alpha 1 antitrypsin screening and AFP as well. - Plan Summary Plan Summary: Agree with plans for discharge tomorrow. I will follow him as outpatient. Please call with questions or concerns.
[2018-02-27] MEDS: VANCOMYCIN HCL 1,250 MG in DEXTROSE 5%-WATER 250 ML IV SCH (18:42)
[2018-02-27] MEDS: KETOROLAC TROMETHAMINE INJ/PF 30 MG/1 ML SDV IV PRN (23:20)
[2018-02-28] MEDS: KETOROLAC TROMETHAMINE INJ/PF 30 MG/1 ML SDV IV PRN ×2 (05:58→12:14)
[2018-02-28] MEDS: OXYCODONE HCL IR 5 MG TABLET PO PRN (08:08)
[2018-02-28] MEDS: ACETAMINOPHEN 325 MG TABLET PO PRN (08:09)
[2018-02-28 08:12] VITALS: BP 123/66
--- NOTE | 2018-03-01 15:42 | DISCHARGE SUMMARY E ---
Discharge Summary NAME: JING BONILLA : 1955 AGE: 63Y ADMITTED: 02/25/2018 DISCHARGED: 02/28/2018 FINAL DIAGNOSES: 1. Incarcerated left inguinal hernia. 2. Reduction of incarcerated left inguinal hernia. 3. Repair of left inguinal hernia with mesh. HOSPITAL COURSE: This is a 63-year-old male who complained of pain along the left inguinal area and noted to have incarcerated hernia in the ED on 02/23/2018. This was then reduced in the ED. Because the pain comes back easily with return of the hernia on mild exertion, patient was then admitted for possible repair of the left inguinal hernia. However, patient also has history of cirrhosis of the liver, and his platelets were low. He had 1 transfusion of platelets, but the platelets only went up to about 50,000 from 40,000, after a unit of platelets. Since there is a question of possibility of bleeding and we do not have any more platelets available unless it is ordered, and it takes at least 6 or 7 hours, the surgery the next day, on 02/24, was postponed. On 02/25/2018, the patient had at least 2 units of platelets available and this was given in the OR when he underwent repair of left inguinal hernia with Dr. Álvarez, which the patient tolerated very well. Postoperatively, patient still continued to have pain in the left groin. He is hesitant to go home, because he lives in a sailboat by himself and he needs to manipulate the sailboat, which he is not able to do at this time. At any rate, a Hem-Oncology consultation was done under the care of Dr. Higuera on 02/27/2018 and concluded that most of the patient's lab abnormalities are due to liver cirrhosis. Patient drinks about 5 beers a day. At any rate, on 02/28/2018, patient felt a little bit better and subsequently was discharged to his sister, who is willing to keep him for at least 2 weeks at her house. Patient was discharged, improved. Patient was given a prescription for Percocet to take 1 every 8 hours as needed. Patient also instructed not to do any lifting more than 10 to 15 pounds over the next 2 to 4 weeks. Arrangements were also made for him to be followed up in the surgical clinic in 2 weeks. DICTATING PHYSICIAN: GOLDEN LAURA M.D. [id number] PHY#: [id number] ID: [id number] JOB#: [id number] ACCT: [id number] cc:Autumn FLOYD M.D. >
== END 2018-02-28 13:15 | disposition home or self-care (01) | DRG 351 ==
LOC: ER 12:44 → INTOOBSV 18:29 → OBSVTOIN 18:29 → EH 18:29 → 4S 22:35 → OBSVTOIN 02-25 11:00
PROVIDERS: ADMIT Surgery; ATTEND Surgery
PROC: 30233R1 Transfusion of Nonautologous Platelets into Peripheral Vein, Percutaneous Approach (ICD-10-PCS; 2018-02-24)
PROC: 30233R1 Transfusion of Nonautologous Platelets into Peripheral Vein, Percutaneous Approach (ICD-10-PCS; 2018-02-25)
PROC: 0YU60JZ Supplement Left Inguinal Region with Synthetic Substitute, Open Approach (ICD-10-PCS; principal; 2018-02-25 12:30)
DX: K40.31 Unilateral inguinal hernia, with obstruction, without gangrene, recurrent (principal); I45.2 Bifascicular block; E78.00 Pure hypercholesterolemia, unspecified; I10 Essential (primary) hypertension; K21.9 Gastro-esophageal reflux disease without esophagitis; M19.90 Unspecified osteoarthritis, unspecified site; K70.9 Alcoholic liver disease, unspecified; R29.6 Repeated falls; F10.20 Alcohol dependence, uncomplicated; G89.29 Other chronic pain; R07.9 Chest pain, unspecified; Z79.82 Long term (current) use of aspirin; Z79.899 Other long term (current) drug therapy; Z88.1 Allergy status to other antibiotic agents; Z88.0 Allergy status to penicillin; Z59.9 Problem related to housing and economic circumstances, unspecified; Z82.61 Family history of arthritis; Z82.49 Family history of ischemic heart disease and other diseases of the circulatory system
CPT/HCPCS: 36415; 36430; 71045; 80053; 81001; 82550; 82553; 82565; 82728; 830; 83605; 83690; 84484; 85025; 85610; 85730; 86850; 86900; 86901; 87040; 87077; 93005; 93010; 96374; 96375; 99285; C1781; G0378; J0131; J0690; J1170; J1885; J2250; J2270; J2405; J2704; J3010; J3370; J3490; J7030; J7060; P9035

== ENCOUNTER 2018-06-27 15:03 | Inpatient (IN) | payer MEDICARE, MEDICAID ==
--- NOTE | 2018-06-27 15:29 | ER Document Report ---
ED Psych Disorder / Suicide - General Stated Complaint: PSYCH EVAL Time Seen by Provider: 06/27/18 15:28 Notes: This is a 63-year-old male to the emergency department for evaluation of hallucinations. Patient states that he has been injecting "ice" and heavily for a while. Notes that he has a severe alcohol and drug problem. States that he is "burned his brain up". States that he has seen recently a being that he describes as an Luis. This being was colorful and at first appeared to be polite but now the Luis has turned into a demon and his trying to get him to hurt himself. Patient states that he knows this is not normal and that he is more likely hallucinating so he is here for help. He denies any homicidal or suicidal ideation. States that he has not been taking care of himself. Has multiple abrasions on his body but denies any significant pain in one particular area. Does state that he has chronic pain all over. TRAVEL OUTSIDE OF THE [place] IN LAST 30 DAYS: No - HPI Patient complains to provider of: Hallucinating Onset was: Gradual Suicide Risk Factors: Age >65, Hallucinations, Substance abuse - Related Data Allergies/Adverse Reactions: amoxicillin [Amoxicillin] Allergy (Unknown, Verified 06/27/18 15:16) ampicillin [Ampicillin] Allergy (Unknown, Verified 06/27/18 15:16) ceftriaxone sodium [From Rocephin] Allergy (Unknown, Verified 06/27/18 15:16) Cephalosporins Allergy (Unknown, Verified 06/27/18 15:16) Penicillins Allergy (Unknown, Verified 06/27/18 15:16) tetracycline [Tetracycline] Allergy (Unknown, Verified 06/27/18 15:16) Past Medical History - General Information source: Patient - Social History Smoking Status: Current Every Day Smoker Frequency of alcohol use: Heavy Drug Abuse: Cocaine, Methamphetamine Lives with: Alone Family History: Reviewed & Not Pertinent, Arthritis, Hypertension - Past Medical History Cardiac Medical History: Reports: Hx Hypercholesterolemia, Hx Hypertension Denies: Hx Congestive Heart Failure, Hx Heart Attack Pulmonary Medical History: Neurological Medical History: Renal/ Medical History: Denies: Hx Peritoneal Dialysis GI Medical History: Reports: Hx Gastroesophageal Reflux Disease - PPI dependent Musculoskeletal Medical History: Reports Hx Arthritis, Reports Hx Musculoskeletal Deformity, Reports Hx Musculoskeletal Trauma Psychiatric Medical History: Denies: Hx Depression Past Surgical History: Reports: Hx Appendectomy, Hx Orthopedic Surgery - Immunizations Hx Diphtheria, Pertussis, Tetanus Vaccination: Yes - 2016 Review of Systems - Review of Systems Notes: Constitutional: denies: Chills, Diaphoresis, Fever, Malaise, Weakness EENT: denies: Eye discharge, Blurred vision, Tearing, Double vision, Nose congestion, Nose discharge, Throat swelling, Mouth pain Cardiovascular: denies: Palpitations, Heart racing, Orthopnea, Dyspnea, Chest pain Respiratory: denies: Cough, Hurts to breathe, Wheezing, Shortness of breath Gastrointestinal: denies: Abdominal pain, Diarrhea, Nausea, Vomiting, Black stools, bright red blood in stool Genitourinary: denies: Burning, Dysuria, Discharge, Frequency, Flank pain, Hematuria Musculoskeletal: denies: Joint pain, Joint swelling,. Complains of generalized muscle stiffness and muscle pain as well as chronic low back pain. Hematologic/Lymphatic: denies: Anemia, Easy bleeding, Easy bruising, Blood clots Neurological/Psychological: denies: Confusion, Dementia, Depression, Loss of consciousness. Complaining of hallucinations Skin: No lesions, no masses, no skin breakdown, no abscesses Physical Exam - Vital signs Interpretation: Normal - Notes Notes: Relatively unkempt individual. Malodorous individual. Clothes are extremely dirty. - General General appearance: Appears well, Alert - HEENT Head: Normocephalic, Atraumatic Eyes: Normal Pupils: PERRL - Respiratory Respiratory status: No respiratory distress Chest status: Nontender Breath sounds: Normal Chest palpation: Normal - Cardiovascular Rhythm: Regular Heart sounds: Normal auscultation Murmur: No - Abdominal Inspection: Normal Distension: No distension Bowel sounds: Normal Tenderness: Nontender Organomegaly: No organomegaly - Back Back: Normal, Nontender - Extremities General upper extremity: Normal inspection, Nontender, Normal color, Normal ROM, Normal temperature General lower extremity: Normal inspection, Nontender, Normal color, Normal ROM, Normal temperature, Normal weight bearing. No: Evi's sign - Neurological Neuro grossly intact: Yes Cognition: Normal Orientation: AAOx4 [place] Coma Scale Eye Opening: Spontaneous [place] Coma Scale Verbal: Oriented [place] Coma Scale Motor: Obeys Commands [place] Coma Scale Total: 15 Speech: Normal Motor strength normal: LUE, RUE, LLE, RLE Sensory: Normal - Psychological Associated symptoms: Normal affect, Normal mood - Skin Skin Temperature: Warm Skin Moisture: Dry Skin Color: Normal Course - Re-evaluation Re-evalutation: 06/27/18 17:18 At this time patient more likely experiencing some drug-induced psychosis potentially with alcohol withdrawal. I am going to treat him with Ativan and Haldol at this time. Have had security come and remove his personal belongings at some knives. After treatment with Ativan and Haldol and observation overnight patient may be seen by mental health tomorrow. We may be able to expedite his detox and drug treatment as he is now 63 and more likely eligible for Medicare. he is compliant. 06/27/18 17:28 Patient is in rhabdomyolysis with fairly significant creatinine kinase of over 9000. Due to his age and risk factors patient will need admission to the hospital for treatment. I am starting her on IV fluids at this time. I have given him some Haldol and Ativan. Will consult with medicine for admission at this time. Patient will also need to be on seizure precautions. 06/27/18 17:28 06/27/18 15:35 06/27/18 15:35 MCV 96 fl (80-97) 06/27/18 15:35 MCH 33.5 pg (27.0-33.4) H 06/27/18 15:35 MCHC 34.9 g/dL (32.0-36.0) 06/27/18 15:35 RDW 13.7 % (11.5-14.0) 06/27/18 15:35 Seg Neutrophils % 61.8 % (42-78) 06/27/18 15:35 Lymphocytes % 26.3 % (13-45) 06/27/18 15:35 Monocytes % 10.6 % (3-13) 06/27/18 15:35 Eosinophils % 0.4 % (0-6) 06/27/18 15:35 Basophils % 0.9 % (0-2) 06/27/18 15:35 Absolute Neutrophils 4.6 10^3/uL (1.7-8.2) 06/27/18 15:35 Absolute Lymphocytes 2.0 10^3/uL (0.5-4.7) 06/27/18 15:35 Absolute Monocytes 0.8 10^3/uL (0.1-1.4) 06/27/18 15:35 Absolute Eosinophils 0.0 10^3/uL (0.0-0.6) 06/27/18 15:35 Absolute Basophils 0.1 10^3/uL (0.0-0.2) 06/27/18 15:35 Chloride 100 mmol/L (98-107) 06/27/18 15:35 Carbon Dioxide 21 mmol/L (22-30) L 06/27/18 15:35 Anion Gap 19 (5-19) 06/27/18 15:35 Est GFR ( Amer) > 60 (>60) 06/27/18 15:35 Est GFR (Non-Af Amer) 51 (>60) L 06/27/18 15:35 Glucose 80 mg/dL (75-110) 06/27/18 15:35 Calcium 9.0 mg/dL (8.4-10.2) 06/27/18 15:35 Total Bilirubin 5.8 mg/dL (0.2-1.3) H 06/27/18 15:35 AST 440 U/L (17-59) H 06/27/18 15:35 ALT 78 U/L (21-72) H 06/27/18 15:35 Alkaline Phosphatase 82 U/L (38-126) 06/27/18 15:35 Total Protein 9.4 g/dL (6.3-8.2) H 06/27/18 15:35 Albumin 4.3 g/dL (3.5-5.0) 06/27/18 15:35 Urine Color ROSALINDA 06/27/18 15:35 Urine Appearance SLIGHTLY-CLOUDY 06/27/18 15:35 Urine pH 5.0 (5.0-9.0) 06/27/18 15:35 Ur Specific [place] 1.017 06/27/18 15:35 Urine Protein NEGATIVE mg/dL (NEGATIVE) 06/27/18 15:35 Urine Glucose (UA) NEGATIVE mg/dL (NEGATIVE) 06/27/18 15:35 Urine Ketones TRACE mg/dL (NEGATIVE) H 06/27/18 15:35 Urine Blood MODERATE (NEGATIVE) H 06/27/18 15:35 Urine Nitrite NEGATIVE (NEGATIVE) 06/27/18 15:35 Ur Leukocyte Esterase NEGATIVE (NEGATIVE) 06/27/18 15:35 Urine WBC (Auto) 3 /HPF 06/27/18 15:35 Urine RBC (Auto) 1 /HPF 06/27/18 15:35 06/27/18 15:35 Creatine Kinase 9637 H - Laboratory Result Diagrams: 06/27/18 15:35 06/27/18 15:35 Laboratory results interpreted by me: 06/27/18 06/27/18 06/27/18 15:35 15:35 15:35 MCH 33.5 H Plt Count 71 L Carbon Dioxide 21 L BUN 35 H Creatinine 1.40 H Est GFR (Non-Af Amer) 51 L Total Bilirubin 5.8 H Direct Bilirubin 3.3 H AST 440 H ALT 78 H Creatine Kinase Total Protein 9.4 H Urine Ketones TRACE H Urine Blood MODERATE H Urine Urobilinogen 2.0 H Salicylates 1.0 L Acetaminophen < 10 L 06/27/18 15:35 MCH Plt Count Carbon Dioxide BUN Creatinine Est GFR (Non-Af Amer) Total Bilirubin Direct Bilirubin AST ALT Creatine Kinase 9637 H Total Protein Urine Ketones Urine Blood Urine Urobilinogen Salicylates Acetaminophen - EKG Interpretation by Pa EKG shows normal: Sinus rhythm, [place], QRS Complexes, ST-T Waves [place]/QRS: RBBB Critical Care Note - Critical Care Note Total time excluding time spent on procedures (mins): 35 Comments: Acute kidney injury, acute rhabdomyolysis, acute psychosis, consultation with specialist Discharge - Discharge Clinical Impression: Acute renal failure due to rhabdomyolysis, Acute psychosis, Polysubstance abuse, Alcoholism Condition: Fair Disposition: ADMITTED INPATIENT Admitting Provider: Joan (Hospitalist) Unit Admitted: Telemetry
[2018-06-27 16:02] LABS: ABSOLUTE BASOPHILS # (AUTO) 0.1 10^3/uL (0.0-0.2); ABSOLUTE MONOCYTES (AUTO) 0.8 10^3/uL (0.1-1.4); ABSOLUTE NEUT (AUTO) 4.6 10^3/uL (1.7-8.2); BASOPHILS % (AUTO) 0.9 % (0-2); EOSINOPHILS % (AUTO) 0.4 % (0-6); HEMATOCRIT 44.7 % (37.9-51.0); HEMOGLOBIN 15.6 g/dL (13.5-17.0); LYMPHOCYTES % (AUTO) 26.3 % (13-45); MEAN CORPUSCULAR HEMOGLOBIN 33.5 pg (27.0-33.4); MEAN CORPUSCULAR HGB CONC 34.9 g/dL (32.0-36.0); MEAN CORPUSCULAR VOLUME 96 fl (80-97); MONOCYTES % (AUTO) 10.6 % (3-13); RED BLOOD COUNT 4.64 10^6/uL (4.35-5.55); RED CELL DISTRIBUTION WIDTH 13.7 % (11.5-14.0); SEGMENTED NEUTROPHILS % (AUTO) 61.8 % (42-78); TOTAL CELLS COUNTED % (AUTO) 100 %; WHITE BLOOD COUNT 7.5 10^3/uL (4.0-10.5)
[2018-06-27 16:04] LABS: APPEARANCE,URINE SLIGHTLY-CLOUDY; BILIRUBIN,URINE NEGATIVE (NEGATIVE); COLOR,URINE AMBER; GLUCOSE, URINE NEGATIVE (NEGATIVE); KETONES,URINE TRACE mg/dL (NEGATIVE); LEUKOCYTE ESTERASE,URINE NEGATIVE (NEGATIVE); NITRITE,URINE NEGATIVE (NEGATIVE); PROTEIN,URINE NEGATIVE (NEGATIVE); URINE SPECIFIC GRAVITY 1.017
[2018-06-27 16:18] LABS: ALANINE AMINOTRANSFERASE 78 U/L (21-72); ALBUMIN 4.3 g/dL (3.5-5.0); ALKALINE PHOSPHATASE 82 U/L (38-126); ANION GAP 19 (5-19); ASPARTATE AMINO TRANSFERASE 440 U/L (17-59); BILIRUBIN,DIRECT 3.3 mg/dL (0.0-0.4); BILIRUBIN,TOTAL 5.8 mg/dL (0.2-1.3); BLOOD UREA NITROGEN 35 mg/dL (7-20); CARBON DIOXIDE 21 mmol/L (22-30); CHLORIDE 100 mmol/L (98-107); GLUCOSE 80 mg/dL (75-110); POTASSIUM 3.6 mmol/L (3.6-5.0); SODIUM 139.9 mmol/L (137-145); TOTAL PROTEIN 9.4 g/dL (6.3-8.2)
[2018-06-27 16:19] LABS: URINE BARBITURATES SCREEN NEGATIVE; URINE BENZODIAZEPINES SCREEN NEGATIVE; URINE COCAINE SCREEN UNCONFIRMED POSITIVE; URINE MARIJUANA (THC) SCREEN NEGATIVE; URINE METHADONE SCREEN NEGATIVE; URINE PHENCYCLIDINE SCREEN NEGATIVE
[2018-06-27 16:22] LABS: ACETAMINOPHEN < 10 ug/mL (10-30); ALCOHOL < 10 mg/dL (NONE DETECTED); PLATELET COUNT 71 10^3/uL (150-450)
[2018-06-27] MEDS ORDERED: LORAZEPAM 1 MG TABLET PO ONE (16:40)
[2018-06-27] MEDS ORDERED: HALOPERIDOL 5 MG TABLET PO ONE (16:40)
[2018-06-27] MEDS ORDERED: NORMAL SALINE 1000 ML 1,000 ML IV PRN (17:19)
--- NOTE | 2018-06-27 18:14 | PDOC H&P ---
History of Present Illness Admission Date/PCP: 06/27/18 17:42 History of Present Illness: JING BONILLA is a 63 year old male who reports a history of "liver disease" due to alcohol, daily alcohol use, and frequent drug use for many years, who comes in due to hallucinations. He said that last night he was at the [employer] and he was drinking and said that he had been doing "ice" and he started to have a hallucination of a woman and a black dress that was outside with some other women playing musical instruments in the parking lot. He said that she came in and out of the bar where he was and he asked people if they saw her and one person said yes but he thinks that person was messing with him. He said he went to the door to look at the woman in the black dress and the group that she was with playing musical instruments and when he went to the door they were no longer there. He said he did this a few times. He said he also saw her come to the window and type on the window as if on a keyboard and words would come up on the window, and he has some what they saw this and they said no. He said he thinks that the woman in the black dress was the devil, and he thinks that he is being punished for all of the years of alcohol and substance abuse and other things he is done. He kept telling me "I know you think I am crazy, but I am not." He said he is never had hallucinations before. He said he was worried that he was going insane and so that is why he came to the hospital. They were going to keep him on observation and get a psychiatric evaluation but they check some blood work and saw that he had a mild acute kidney injury as well as a rhabdomyolysis. He is being admitted for some IV fluids and medical stabilization. Past Medical History Cardiac Medical History: Reports: Hyperlipidema, Hypertension Denies: Congestive Heart Failure, Myocardial Infarction Pulmonary Medical History: Neurological Medical History: GI Medical History: Reports: Gastroesophageal Reflux Disease - PPI dependent Musculoskeltal Medical History: Reports: Arthritis Psychiatric Medical History: Denies: Depression Past Surgical History Past Surgical History: Reports: Appendectomy, Orthopedic Surgery Social History Lives with: Alone Smoking Status: Former Smoker - Claims he does not smoke cigarettes or marijuana Frequency of Alcohol Use: Heavy Hx Recreational Drug Use: Yes Drugs: Cocaine, Other - "Ice" Hx Prescription Drug Abuse: No Family History Family History: Reviewed & Not Pertinent, Arthritis, Hypertension Parental Family History Reviewed: Yes Children Family History Reviewed: Yes Sibling(s) Family History Reviewed.: Yes Medication/Allergy Home Medications: Aspirin [Aspirin 325 mg Tablet] 325 mg PO DAILY 02/23/18 Esomeprazole Magnesium [Nexium 24Hr] 20 mg PO Q48H 02/23/18 Allergies/Adverse Reactions: amoxicillin [Amoxicillin] Allergy (Unknown, Verified 06/27/18 15:16) ampicillin [Ampicillin] Allergy (Unknown, Verified 06/27/18 15:16) ceftriaxone sodium [From Rocephin] Allergy (Unknown, Verified 06/27/18 15:16) Cephalosporins Allergy (Unknown, Verified 06/27/18 15:16) Penicillins Allergy (Unknown, Verified 06/27/18 15:16) tetracycline [Tetracycline] Allergy (Unknown, Verified 06/27/18 15:16) Review of Systems All systems: reviewed and no additional remarkable complaints except as stated - All systems reviewed and were negative except as noted in the HPI Physical Exam Vital Signs: Temp Pulse Resp BP Pulse Ox 98.6 F 88 20 138/80 H 97 06/27/18 15:36 06/27/18 15:36 06/27/18 15:36 06/27/18 15:36 06/27/18 15:36 General appearance: PRESENT: cooperative, disheveled, mild distress Head exam: PRESENT: atraumatic, normocephalic Eye exam: PRESENT: conjunctival injection, EOMI, PERRLA. ABSENT: nystagmus, scleral icterus Ear exam: PRESENT: normal external ear exam Mouth exam: PRESENT: dry mucosa, neck supple Teeth exam: PRESENT: poor dentation Throat exam: ABSENT: post pharyngeal erythema Neck exam: PRESENT: full ROM. ABSENT: carotid bruit, JVD, lymphadenopathy, meningismus, tenderness, thyromegaly Respiratory exam: PRESENT: clear to auscultation rogelio, symmetrical, unlabored. ABSENT: accessory muscle use, chest wall tenderness, crackles, prolonged expiratory phas, rhonchi, tachypnea, wheezes Cardiovascular exam: PRESENT: RRR, +S1, +S2 Pulses: PRESENT: normal carotid pulses Vascular exam: PRESENT: normal capillary refill GI/Abdominal exam: PRESENT: normal bowel sounds, soft. ABSENT: distended, guarding, rebound, tenderness Extremities exam: ABSENT: clubbing, pedal edema Musculoskeletal exam: PRESENT: normal inspection. ABSENT: deformity Neurological exam: PRESENT: alert, awake, oriented to person, oriented to place, oriented to situation, CN II-XII grossly intact. ABSENT: motor sensory deficit Psychiatric exam: PRESENT: anxious, appropriate affect, normal mood Focused psych exam: PRESENT: other - Hallucinations as noted above Skin exam: PRESENT: dry, warm Results Laboratory Results: 06/27/18 15:35 06/27/18 15:35 06/27/18 06/27/18 06/27/18 15:35 15:35 15:35 WBC 7.5 RBC 4.64 Hgb 15.6 Hct 44.7 MCV 96 MCH 33.5 H MCHC 34.9 RDW 13.7 Plt Count 71 L Seg Neutrophils % 61.8 Lymphocytes % 26.3 Monocytes % 10.6 Eosinophils % 0.4 Basophils % 0.9 Absolute Neutrophils 4.6 Absolute Lymphocytes 2.0 Absolute Monocytes 0.8 Absolute Eosinophils 0.0 Absolute Basophils 0.1 Sodium 139.9 Potassium 3.6 Chloride 100 Carbon Dioxide 21 L Anion Gap 19 BUN 35 H Creatinine 1.40 H Est GFR ( Amer) > 60 Est GFR (Non-Af Amer) 51 L Glucose 80 Calcium 9.0 Total Bilirubin 5.8 H AST 440 H ALT 78 H Alkaline Phosphatase 82 Total Protein 9.4 H Albumin 4.3 Urine Color ROSALINDA Urine Appearance SLIGHTLY-CLOUDY Urine pH 5.0 Ur Specific [place] 1.017 Urine Protein NEGATIVE Urine Glucose (UA) NEGATIVE Urine Ketones TRACE H Urine Blood MODERATE H Urine Nitrite NEGATIVE Ur Leukocyte Esterase NEGATIVE Urine WBC (Auto) 3 Urine RBC (Auto) 1 06/27/18 15:35 Creatine Kinase 9637 H Assessment and Plan - Diagnosis (1) Acute psychosis Is this a current diagnosis for this admission?: Yes Plan: This might be substance abuse induced. We will let him clear up a little bit and get a few days with the drugs out of his system and then have him evaluated by psychiatry. (2) Acute renal failure due to rhabdomyolysis Is this a current diagnosis for this admission?: Yes Plan: We will start IV fluids and monitor his metabolic panel on a daily basis. We will monitor his urine output. (3) Polysubstance abuse Is this a current diagnosis for this admission?: Yes Plan: Well put him on some as needed Ativan in the event he started to have alcohol withdrawal. He does not seem to be actively hallucinating now. - Time Time Spent with patient: 35 or more minutes - Inpatient Certification Based on my medical assessment, after consideration of the patient's comorbidities, presenting symptoms, or acuity I expect that the services needed warrant INPATIENT care.: Yes I certify that my determination is in accordance with my understanding of Medicare's requirements for reasonable and necessary INPATIENT services [42 CFR 412.3e].: Yes Medical Necessity: Need Close Monitoring Due to Risk of Patient Decompensation, Need For IV Fluids, Risk of Complication if Not Cared For in Hospital
--- NOTE | 2018-06-27 18:39 | ADVANCED CARE ---
- Diagnosis (1) Acute psychosis Diagnosis Current: Yes (2) Acute renal failure due to rhabdomyolysis Diagnosis Current: Yes (3) Polysubstance abuse Diagnosis Current: Yes Resuscitation Status: Full Code Discussion: He says that even though he thinks he is going crazy, he does not want to , and he wants us to do everything possible to prolong his life. Time Spent: 10
[2018-06-27] MEDS: RINGERS SOLUTION,LACTATED 1,000 ML IV PRN (22:20)
[2018-06-27] MEDS: LORAZEPAM INJ 2 MG/1 ML VIAL IV PRN (22:23)
[2018-06-27] MEDS: HEPARIN SOD (PORCINE) 5,000 UNIT/ML 1 ML SYRINGE SUBCUT SCH (22:24)
[2018-06-28 05:13] LABS: ANION GAP 9 (5-19); BLOOD UREA NITROGEN 24 mg/dL (7-20); CALCIUM 7.8 mg/dL (8.4-10.2); CARBON DIOXIDE 25 mmol/L (22-30); CHLORIDE 102 mmol/L (98-107); GLUCOSE 88 mg/dL (75-110); POTASSIUM 3.1 mmol/L (3.6-5.0); SODIUM 136.4 mmol/L (137-145)
[2018-06-28 05:47] LABS: CREATINE KINASE 4107 U/L (55-170)
[2018-06-28] MEDS: HEPARIN SOD (PORCINE) 5,000 UNIT/ML 1 ML SYRINGE SUBCUT SCH ×3 (06:02→21:15)
--- NOTE | 2018-06-28 06:55 | PSYCHOLOGICAL NOTE ---
Psych Note - Psych Note Date seen by psych provider: 06/27/18 Time seen by psych provider: 15:30 Psych Note: Reason for Consult: hallucinations Pt to Ed via EMS with c/o visual hallucinations onset yesterday. Pt has hx of liver failure secondary to ETOH abuse and reports seeing lady dressed in black [place] and claims she was the devil, states he has not has a drink since seeing her. Patient reports that he is afraid he is "finally brought myself up." He states that he has been seeing a woman that says she is the devil. He continued to disclose onset was last night. He denies any history of this happening before to him. . He reports that she is in color; "I am not crazy but what I am seeing is." He denies history of mental health. He reports that he has a history of significant substance abuse reporting using ice (methamphetamine) approximately 3 days ago. He disclosed that he normally uses cocaine and feels that using ice is the cause of his current presentation. He continued report that he drinks daily approximately 1/5 a day. He reports he is interested in sobriety. He reports he came to [facility] ED because he is concerned that he has something medically wrong with him that is possibly causing hallucinations if it is not his substance use. Patient is alert and orientated to person, place, time and circumstance. Mood is anxious with congruent affect. Patient denies suicidal and homicidal ideation. Patient reports visual and auditory hallucination of a woman identifying herself as the devil. Patient reports onset was last night. Eye contact was well-maintained. Conversational speech is overall within normal rate, tone and prosody however cannot tell patient is anxious. Intellectual abilities appear to be within the average range. Attention and concentration are fair. Insight, judgment, and pulse control is fair. Medication recommendations per [facility]'s contracted psychiatrist Dr Gianni KING are as follows Haldol 5mg twice daily cogentin 1mg daily Polysubstance abuse per history provided by patient This includes cocaine, methamphetamines, and alcohol per patient's report Impression\\plan: Patient is recommended for overnight mental health observation to assist with reported hallucinations. This is a voluntary. Patient denies thoughts of wanting harm himself or others and is requesting assistance for sobriety. Patient is demonstrating continued insight and judgment with coming to [facility] and requesting assistance to ensure medically he is okay with new onset of symptom of hallucinations. The patient reports using methamphetamine just days previous and last drink last night (reports first event of hallucination is before he stopped drinking). Patient will be reevaluated tomorrow and if he is still requesting assistance for sobriety plan of care will be developed. Dr. Nichole was consulted and the care management of this patient; attending physicians agreement with recommendations and disposition.
[2018-06-28] MEDS: RINGERS SOLUTION,LACTATED 1,000 ML IV PRN ×2 (07:01→17:31)
[2018-06-28] MEDS: LORAZEPAM INJ 2 MG/1 ML VIAL IV PRN ×3 (10:08→22:51)
--- NOTE | 2018-06-28 14:55 | PDOC PROGRESS REPORT ---
Subjective Progress Note for:: 06/28/18 Subjective:: This is a 63 yr old male with alcohol use disorder who was admitted for acute renal failure and rhabdomyolysis. He also presented with hallucinations. He was started on IV fluids. Patient had hallucinations overnight. He says he the "smiley faces" on the pain scale on the room has been "laughing and frowning at him". He was also seeing a black woman in the room. He says currently he is not having these hallucinations. He says he never had these ebfore and onyl developed them when he was using "ice" which he says is mostly cocaine last Friday. Creatinine improving and CK trending down but still elevated. Reason For Visit: RHABDOMYOLYSIS,OWEN,HALLUCINATIONS Physical Exam Vital Signs: Temp Pulse Resp BP Pulse Ox 98.5 F 62 18 103/48 L 97 06/28/18 12:18 06/28/18 12:18 06/28/18 12:18 06/28/18 12:18 06/28/18 12:18 Intake & Output 06/27/18 06/28/18 06/29/18 06:59 06:59 06:59 Intake Total 1999 Balance 1999 Weight 162 lb 7.691 oz General appearance: PRESENT: no acute distress, well-developed, well-nourished Head exam: PRESENT: atraumatic, normocephalic Eye exam: PRESENT: conjunctiva pink, EOMI, PERRLA. ABSENT: scleral icterus Ear exam: PRESENT: normal external ear exam Mouth exam: PRESENT: moist, tongue midline Neck exam: ABSENT: carotid bruit, JVD, lymphadenopathy, thyromegaly Respiratory exam: PRESENT: clear to auscultation rogelio. ABSENT: rales, rhonchi, wheezes Cardiovascular exam: PRESENT: RRR. ABSENT: diastolic murmur, rubs, systolic murmur Pulses: PRESENT: normal dorsalis pedis pul GI/Abdominal exam: PRESENT: normal bowel sounds, soft. ABSENT: distended, guarding, mass, organolmegaly, rebound, tenderness Rectal exam: PRESENT: deferred Neurological exam: PRESENT: alert, awake, oriented to person, oriented to place, oriented to time, oriented to situation, CN II-XII grossly intact. ABSENT: motor sensory deficit Results Laboratory Results: 06/27/18 15:35 06/28/18 04:39 06/27/18 06/27/18 06/27/18 15:35 15:35 15:35 WBC 7.5 RBC 4.64 Hgb 15.6 Hct 44.7 MCV 96 MCH 33.5 H MCHC 34.9 RDW 13.7 Plt Count 71 L Seg Neutrophils % 61.8 Lymphocytes % 26.3 Monocytes % 10.6 Eosinophils % 0.4 Basophils % 0.9 Absolute Neutrophils 4.6 Absolute Lymphocytes 2.0 Absolute Monocytes 0.8 Absolute Eosinophils 0.0 Absolute Basophils 0.1 Sodium 139.9 Potassium 3.6 Chloride 100 Carbon Dioxide 21 L Anion Gap 19 BUN 35 H Creatinine 1.40 H Est GFR ( Amer) > 60 Est GFR (Non-Af Amer) 51 L Glucose 80 Calcium 9.0 Total Bilirubin 5.8 H AST 440 H ALT 78 H Alkaline Phosphatase 82 Ammonia Total Protein 9.4 H Albumin 4.3 Urine Color ROSALINDA Urine Appearance SLIGHTLY-CLOUDY Urine pH 5.0 Ur Specific [place] 1.017 Urine Protein NEGATIVE Urine Glucose (UA) NEGATIVE Urine Ketones TRACE H Urine Blood MODERATE H Urine Nitrite NEGATIVE Ur Leukocyte Esterase NEGATIVE Urine WBC (Auto) 3 Urine RBC (Auto) 1 06/27/18 06/28/18 20:31 04:39 WBC RBC Hgb Hct MCV MCH MCHC RDW Plt Count Seg Neutrophils % Lymphocytes % Monocytes % Eosinophils % Basophils % Absolute Neutrophils Absolute Lymphocytes Absolute Monocytes Absolute Eosinophils Absolute Basophils Sodium 136.4 L Potassium 3.1 L Chloride 102 Carbon Dioxide 25 Anion Gap 9 BUN 24 H Creatinine 0.78 Est GFR ( Amer) > 60 Est GFR (Non-Af Amer) > 60 Glucose 88 Calcium 7.8 L Total Bilirubin AST ALT Alkaline Phosphatase Ammonia 26.4 Total Protein Albumin Urine Color Urine Appearance Urine pH Ur Specific [place] Urine Protein Urine Glucose (UA) Urine Ketones Urine Blood Urine Nitrite Ur Leukocyte Esterase Urine WBC (Auto) Urine RBC (Auto) 06/27/18 06/28/18 15:35 04:39 Creatine Kinase 9637 H 4107 H Assessment and Plan - Diagnosis (1) Acute renal failure due to rhabdomyolysis Is this a current diagnosis for this admission?: Yes Plan: Creatinine has significantly improved with IV fluids. (2) Rhabdomyolysis Is this a current diagnosis for this admission?: Yes Plan: CK trending down but still elevated. Continue IV fluids. (3) Hallucinations Is this a current diagnosis for this admission?: Yes Plan: Likely related to substance abuse ("Ice, cocaine). - Time Time Spent with patient: 15-24 minutes
[2018-06-28] MEDS ORDERED: POTASSIUM CHLORIDE 10 MEQ CAPSULE.ER PO ONE (16:00)
--- NOTE | 2018-06-28 23:40 | EKG REPORT ---
SEVERITY:- ABNORMAL ECG - SINUS RHYTHM INCOMPLETE RBBB AND LAFB : Confirmed by: Tobi Rodriguez 28-Jun-2018 23:39:51
--- NOTE | 2018-06-28 23:40 | EKG REPORT ---
SEVERITY:- ABNORMAL ECG - SINUS RHYTHM RBBB AND LAFB : Confirmed by: Tobi Rodriguez 28-Jun-2018 23:39:44
[2018-06-29] MEDS: RINGERS SOLUTION,LACTATED 1,000 ML IV PRN ×3 (01:40→22:01)
[2018-06-29] MEDS: HEPARIN SOD (PORCINE) 5,000 UNIT/ML 1 ML SYRINGE SUBCUT SCH ×3 (05:21→21:05)
[2018-06-29 06:34] LABS: ANION GAP 6 (5-19); BLOOD UREA NITROGEN 13 mg/dL (7-20); CALCIUM 8.2 mg/dL (8.4-10.2); CARBON DIOXIDE 26 mmol/L (22-30); CHLORIDE 106 mmol/L (98-107); CREATINE KINASE 977 U/L (55-170); GLUCOSE 111 mg/dL (75-110); POTASSIUM 3.5 mmol/L (3.6-5.0); SODIUM 137.7 mmol/L (137-145)
[2018-06-29] MEDS: LORAZEPAM INJ 2 MG/1 ML VIAL IV PRN ×2 (10:19→22:01)
[2018-06-29] MEDS ORDERED: NITROGLYCERIN 0.4 MG/TAB 25 TAB/BOTTLE SL PRN (12:29)
[2018-06-29] MEDS: MORPHINE SULFATE 10 MG/ML INJ IV PRN ×2 (14:32→22:00)
--- NOTE | 2018-06-29 15:54 | PDOC PROGRESS REPORT ---
Subjective Progress Note for:: 06/29/18 Subjective:: This is a 63 yr old male with alcohol use disorder who was admitted for acute renal failure and rhabdomyolysis. He also presented with hallucinations. He was started on IV fluids. 06/28: Patient had hallucinations overnight. He says he the "smiley faces" on the pain scale on the room has been "laughing and frowning at him". He was also seeing a black woman in the room. He says currently he is not having these hallucinations. He says he never had these ebfore and onyl developed them when he was using "ice" which he says is mostly cocaine last Friday. Creatinine improving and CK trending down but still elevated. 06/29: Patient had chest pain last night. His troponin did came back elevated at 0.1. EKG is negative for ischemic changes. Trop elevation could be likely from cocaine use. This morning, he still has some chest pain which he describe as sharp. Will recheck troponin and check another EKG. He denies hallucinations today. Reason For Visit: RHABDOMYOLYSIS,OWEN,HALLUCINATIONS Physical Exam Vital Signs: Temp Pulse Resp BP Pulse Ox 98.9 F 69 15 134/65 H 95 06/29/18 11:59 06/29/18 11:59 06/29/18 03:42 06/29/18 11:59 06/29/18 11:59 Intake & Output 06/28/18 06/29/18 06/30/18 06:59 06:59 06:59 Intake Total 1999 2886 1000 Output Total 1380 Balance 1999 1506 1000 Weight 162 lb 7.691 oz 158 lb 15.253 oz Results Laboratory Results: 06/27/18 15:35 06/29/18 05:40 06/29/18 05:40 Sodium 137.7 Potassium 3.5 L Chloride 106 Carbon Dioxide 26 Anion Gap 6 BUN 13 Creatinine 0.64 Est GFR ( Amer) > 60 Est GFR (Non-Af Amer) > 60 Glucose 111 H Calcium 8.2 L 06/27/18 06/28/18 06/28/18 15:35 04:39 18:57 Creatine Kinase 9637 H 4107 H Troponin I 0.129 06/29/18 06/29/18 05:40 10:37 Creatine Kinase 977 H Troponin I 0.090 Assessment and Plan - Diagnosis (1) Acute renal failure due to rhabdomyolysis Is this a current diagnosis for this admission?: Yes Plan: Creatinine has significantly improved with IV fluids. 06/29: Resolved with IV fluids. Creatinine is now at baseline of 0.6. (2) Rhabdomyolysis Is this a current diagnosis for this admission?: Yes Plan: CK trending down but still elevated. Continue IV fluids. 06/29: CK continue to trend down with IV fluids. (3) Chest pain Is this a current diagnosis for this admission?: Yes Plan: His troponin did came back elevated at 0.1. EKG is negative for ischemic changes. Trop elevation could be likely from cocaine use. This morning, he still has some chest pain which he describe as sharp. Will recheck troponin and check another EKG. (4) Hallucinations Is this a current diagnosis for this admission?: Yes Plan: Likely related to substance abuse ("Ice, cocaine). 06/29: Resolved. - Time Time Spent with patient: 15-24 minutes
[2018-06-29] MEDS: ASPIRIN 81 MG TABLET, CHEWABLE PO SCH (17:27)
[2018-06-29 23:41] LABS: ALANINE AMINOTRANSFERASE 75 U/L (21-72); ALBUMIN 2.7 g/dL (3.5-5.0); ALKALINE PHOSPHATASE 54 U/L (38-126); ASPARTATE AMINO TRANSFERASE 216 U/L (17-59); BILIRUBIN,DIRECT 1.1 mg/dL (0.0-0.4); BILIRUBIN,TOTAL 2.3 mg/dL (0.2-1.3); TOTAL PROTEIN 6.8 g/dL (6.3-8.2)
[2018-06-30] MEDS: MORPHINE SULFATE 10 MG/ML INJ IV PRN ×3 (04:00→20:13)
[2018-06-30] MEDS: LORAZEPAM INJ 2 MG/1 ML VIAL IV PRN (04:00)
[2018-06-30] MEDS: RINGERS SOLUTION,LACTATED 1,000 ML IV PRN ×2 (06:11→13:54)
[2018-06-30] MEDS: HEPARIN SOD (PORCINE) 5,000 UNIT/ML 1 ML SYRINGE SUBCUT SCH ×3 (06:13→22:10)
[2018-06-30 06:38] LABS: ANION GAP 7 (5-19); BLOOD UREA NITROGEN 13 mg/dL (7-20); CALCIUM 8.4 mg/dL (8.4-10.2); CARBON DIOXIDE 26 mmol/L (22-30); CHLORIDE 104 mmol/L (98-107); CREATINE KINASE 530 U/L (55-170); GLUCOSE 99 mg/dL (75-110); POTASSIUM 3.6 mmol/L (3.6-5.0); SODIUM 137.4 mmol/L (137-145)
[2018-06-30] MEDS: ASPIRIN 81 MG TABLET, CHEWABLE PO SCH (10:08)
[2018-07-01] MEDS: MORPHINE SULFATE 10 MG/ML INJ IV PRN ×4 (03:45→20:41)
[2018-07-01] MEDS: LORAZEPAM INJ 2 MG/1 ML VIAL IV PRN (03:46)
[2018-07-01] MEDS: HEPARIN SOD (PORCINE) 5,000 UNIT/ML 1 ML SYRINGE SUBCUT SCH ×3 (05:25→21:24)
--- NOTE | 2018-07-01 06:38 | PDOC PROGRESS REPORT ---
Subjective Progress Note for:: 06/30/18 Subjective:: Still with pleuritic chest pain. Reports no more hallucinations. Reason For Visit: RHABDOMYOLYSIS,OWEN,HALLUCINATIONS Physical Exam Vital Signs: Temp Pulse Resp BP Pulse Ox 98.3 F 66 16 146/81 H 95 06/30/18 11:30 06/30/18 14:00 06/30/18 11:30 06/30/18 11:30 06/30/18 11:30 Intake & Output 06/29/18 06/30/18 07/01/18 06:59 06:59 06:59 Intake Total 2886 4930 965 Output Total 1380 1950 Balance 1506 2980 965 Weight 72.1 kg 73.9 kg General appearance: PRESENT: cooperative, mild distress, well-developed Head exam: PRESENT: atraumatic, normocephalic Respiratory exam: PRESENT: chest wall tenderness - Anterior ribs and sternum tender to palpation, clear to auscultation rogelio. ABSENT: accessory muscle use, prolonged expiratory phas, rhonchi, tachypnea, wheezes Cardiovascular exam: PRESENT: RRR, +S1, +S2 GI/Abdominal exam: PRESENT: normal bowel sounds, soft, other - Recent left inguinal hernia repair 3-4 months ago. ABSENT: distended, tenderness Rectal exam: PRESENT: deferred Gentrourinary exam: ABSENT: indwelling catheter Extremities exam: ABSENT: pedal edema Psychiatric exam: PRESENT: flat affect. ABSENT: agitated, anxious Focused psych exam: PRESENT: other - Reports no more hallucinations Results Laboratory Results: 06/27/18 15:35 06/30/18 05:50 06/29/18 06/30/18 05:40 05:50 Sodium 137.4 Potassium 3.6 Chloride 104 Carbon Dioxide 26 Anion Gap 7 BUN 13 Creatinine 0.57 Est GFR ( Amer) > 60 Est GFR (Non-Af Amer) > 60 Glucose 99 Calcium 8.4 Total Bilirubin 2.3 H AST 216 H ALT 75 H Alkaline Phosphatase 54 Total Protein 6.8 Albumin 2.7 L 06/27/18 06/28/18 06/28/18 15:35 04:39 18:57 Creatine Kinase 9637 H 4107 H Troponin I 0.129 06/29/18 06/29/18 06/30/18 05:40 10:37 05:50 Creatine Kinase 977 H 530 H Troponin I 0.090 Assessment and Plan - Diagnosis (1) Acute psychosis Is this a current diagnosis for this admission?: Yes Plan: 06/30/2018-likely cocaine induced. Now that hallucinations have resolved I will have psychiatry see the patient. (2) Acute renal failure due to rhabdomyolysis Is this a current diagnosis for this admission?: Yes Plan: 06/30/2018-acute renal failure has resolved with IV fluids. Continue to monitor renal function. (3) Rhabdomyolysis Qualifiers: Rhabdomyolysis type: non-traumatic Qualified Code(s): M62.82 - Rhabdomyolysis Is this a current diagnosis for this admission?: Yes Plan: 06/30/2018-creatinine kinase is down to 530. Continue to monitor. I explained to the patient that discomfort will resolve slowly over time. (4) Chest pain Qualifiers: Chest pain type: chest pain on breathing Qualified Code(s): R07.1 - Chest pain on breathing; R07.81 - Pleurodynia Is this a current diagnosis for this admission?: Yes Plan: 06/30/2018-the patient has pleuritic chest pain. It could be related to rhabdo. I explained that this will slowly resolve over weeks. We will check a chest x- ray to rule out any infiltrative process. (5) Hallucinations Is this a current diagnosis for this admission?: Yes Plan: 06/30/2018-likely due to his cocaine use. The patient reports that halluc inations have resolved. - Time Time Spent with patient: 15-24 minutes Medications reviewed and adjusted accordingly: Yes Anticipated discharge: Home
[2018-07-01 08:31] LABS: ABSOLUTE EOSINOPHILS # (AUTO) 0.1 10^3/uL (0.0-0.6); ABSOLUTE LYMPHOCYTES (AUTO) 1.1 10^3/uL (0.5-4.7); ABSOLUTE MONOCYTES (AUTO) 0.4 10^3/uL (0.1-1.4); ABSOLUTE NEUT (AUTO) 1.1 10^3/uL (1.7-8.2); BASOPHILS % (AUTO) 1.1 % (0-2); EOSINOPHILS % (AUTO) 2.7 % (0-6); HEMATOCRIT 38.8 % (37.9-51.0); HEMOGLOBIN 13.7 g/dL (13.5-17.0); LYMPHOCYTES % (AUTO) 42.1 % (13-45); MEAN CORPUSCULAR HEMOGLOBIN 34.7 pg (27.0-33.4); MEAN CORPUSCULAR HGB CONC 35.3 g/dL (32.0-36.0); MEAN CORPUSCULAR VOLUME 98 fl (80-97); MONOCYTES % (AUTO) 14.3 % (3-13); RED BLOOD COUNT 3.96 10^6/uL (4.35-5.55); RED CELL DISTRIBUTION WIDTH 13.6 % (11.5-14.0); SEGMENTED NEUTROPHILS % (AUTO) 39.8 % (42-78); TOTAL CELLS COUNTED % (AUTO) 100 %; WHITE BLOOD COUNT 2.7 10^3/uL (4.0-10.5)
[2018-07-01 08:48] LABS: ANION GAP 5 (5-19); BLOOD UREA NITROGEN 14 mg/dL (7-20); CALCIUM 8.7 mg/dL (8.4-10.2); CARBON DIOXIDE 31 mmol/L (22-30); CHLORIDE 101 mmol/L (98-107); CREATINE KINASE 294 U/L (55-170); GLUCOSE 97 mg/dL (75-110); POTASSIUM 3.6 mmol/L (3.6-5.0); SODIUM 137.3 mmol/L (137-145)
--- NOTE | 2018-07-01 08:53 | RADIOLOGY REPORT (SQ) ---
EXAM DESCRIPTION: CHEST 2 VIEWS COMPLETED DATE/TIME: 07/01/2018 8:42 am REASON FOR STUDY: Pleuritic chest pain COMPARISON: 02/23/2018 EXAM PARAMETERS: NUMBER OF VIEWS: two views TECHNIQUE: Digital Frontal and Lateral radiographic views of the chest acquired. RADIATION DOSE: NA LIMITATIONS: none FINDINGS: LUNGS AND PLEURA: Small left effusion with mild associated basilar consolidation. Unremar kable right hemithorax. No pneumothorax. MEDIASTINUM AND HILAR STRUCTURES: No masses or contour abnormalities. HEART AND VASCULAR STRUCTURES: Normal heart size. Ectatic thoracic aorta. BONES: No acute findings. HARDWARE: None in the chest. OTHER: No other significant finding. IMPRESSION: Small left effusion with mild associated consolidation possibly atelectasis or infection . TECHNICAL DOCUMENTATION: JOB ID: [id number] [employer]- All Rights Reserved Reading location - IP/workstation name: [email or web address]
[2018-07-01 09:33] LABS: PLATELET COUNT 48 10^3/uL (150-450)
[2018-07-01] MEDS: ASPIRIN 81 MG TABLET, CHEWABLE PO SCH (09:33)
[2018-07-01 16:42] LABS: APPEARANCE,URINE CLEAR; BILIRUBIN,URINE NEGATIVE (NEGATIVE); COLOR,URINE YELLOW; GLUCOSE, URINE NEGATIVE (NEGATIVE); KETONES,URINE NEGATIVE (NEGATIVE); LEUKOCYTE ESTERASE,URINE NEGATIVE (NEGATIVE); NITRITE,URINE NEGATIVE (NEGATIVE); PROTEIN,URINE NEGATIVE (NEGATIVE); URINE SPECIFIC GRAVITY 1.005; UROBILINOGEN,URINE NEGATIVE mg/dL (<2.0)
[2018-07-02] MEDS: MORPHINE SULFATE 10 MG/ML INJ IV PRN ×3 (01:27→12:21)
[2018-07-02] MEDS: HEPARIN SOD (PORCINE) 5,000 UNIT/ML 1 ML SYRINGE SUBCUT SCH ×3 (05:33→21:05)
[2018-07-02 06:02] LABS: ALANINE AMINOTRANSFERASE 80 U/L (21-72); ALKALINE PHOSPHATASE 68 U/L (38-126); ANION GAP 6 (5-19); ASPARTATE AMINO TRANSFERASE 150 U/L (17-59); BILIRUBIN,DIRECT 0.7 mg/dL (0.0-0.4); BILIRUBIN,TOTAL 1.7 mg/dL (0.2-1.3); BLOOD UREA NITROGEN 14 mg/dL (7-20); CALCIUM 8.9 mg/dL (8.4-10.2); CARBON DIOXIDE 29 mmol/L (22-30); CHLORIDE 102 mmol/L (98-107); GLUCOSE 101 mg/dL (75-110); POTASSIUM 3.8 mmol/L (3.6-5.0); SODIUM 136.8 mmol/L (137-145); TOTAL PROTEIN 7.1 g/dL (6.3-8.2)
[2018-07-02 06:11] LABS: ABSOLUTE EOSINOPHILS # (AUTO) 0.1 10^3/uL (0.0-0.6); ABSOLUTE LYMPHOCYTES (AUTO) 1.1 10^3/uL (0.5-4.7); ABSOLUTE MONOCYTES (AUTO) 0.5 10^3/uL (0.1-1.4); ABSOLUTE NEUT (AUTO) 1.4 10^3/uL (1.7-8.2); BASOPHILS % (AUTO) 1.2 % (0-2); HEMATOCRIT 39.5 % (37.9-51.0); HEMOGLOBIN 13.7 g/dL (13.5-17.0); LYMPHOCYTES % (AUTO) 36.5 % (13-45); MEAN CORPUSCULAR HEMOGLOBIN 34.2 pg (27.0-33.4); MEAN CORPUSCULAR HGB CONC 34.7 g/dL (32.0-36.0); MEAN CORPUSCULAR VOLUME 99 fl (80-97); MONOCYTES % (AUTO) 14.9 % (3-13); RED CELL DISTRIBUTION WIDTH 13.6 % (11.5-14.0); SEGMENTED NEUTROPHILS % (AUTO) 44.4 % (42-78); TOTAL CELLS COUNTED % (AUTO) 100 %; WHITE BLOOD COUNT 3.1 10^3/uL (4.0-10.5)
[2018-07-02 06:42] LABS: PLATELET COUNT 59 10^3/uL (150-450)
--- NOTE | 2018-07-02 06:54 | PDOC PROGRESS REPORT ---
Subjective Progress Note for:: 07/01/18 Subjective:: Still with pleuritic chest pain. Now he has pain in the suprapubic area. No recurrent hallucinations. He is amenable to evaluation by psychiatry. The patient also complains of dark foul-smelling urine. Reason For Visit: RHABDOMYOLYSIS,OWEN,HALLUCINATIONS Physical Exam Vital Signs: Temp Pulse Resp BP Pulse Ox 98.5 F 66 16 147/79 H 95 07/01/18 11:48 07/01/18 11:48 07/01/18 11:48 07/01/18 11:48 07/01/18 11:48 Intake & Output 06/30/18 07/01/18 07/02/18 06:59 06:59 06:59 Intake Total 4930 3445 Output Total 1950 3400 Balance 2980 45 Weight 73.9 kg 73.9 kg General appearance: PRESENT: no acute distress, cooperative, well-developed Head exam: PRESENT: atraumatic, normocephalic Neck exam: PRESENT: full ROM. ABSENT: lymphadenopathy Respiratory exam: PRESENT: chest wall tenderness, rales - Left base, symmetrical, unlabored. ABSENT: prolonged expiratory phas, rhonchi, wheezes Cardiovascular exam: PRESENT: RRR, +S1, +S2, systolic murmur - 2/6 GI/Abdominal exam: PRESENT: normal bowel sounds, soft, tenderness - Tender in the suprapubic area. ABSENT: distended Rectal exam: PRESENT: deferred Gentrourinary exam: ABSENT: indwelling catheter Extremities exam: ABSENT: pedal edema Neurological exam: PRESENT: alert, awake, oriented to person, oriented to place, oriented to time, oriented to situation, CN II-XII grossly intact Psychiatric exam: PRESENT: flat affect. ABSENT: agitated, anxious Focused psych exam: ABSENT: delusional, restlessness Results Laboratory Results: 07/01/18 07:42 07/01/18 07:42 07/01/18 07/01/18 07:42 07:42 WBC 2.7 L RBC 3.96 L Hgb 13.7 Hct 38.8 MCV 98 H MCH 34.7 H MCHC 35.3 RDW 13.6 Plt Count 48 L Seg Neutrophils % 39.8 L Lymphocytes % 42.1 Monocytes % 14.3 H Eosinophils % 2.7 Basophils % 1.1 Absolute Neutrophils 1.1 L Absolute Lymphocytes 1.1 Absolute Monocytes 0.4 Absolute Eosinophils 0.1 Absolute Basophils 0.0 Sodium 137.3 Potassium 3.6 Chloride 101 Carbon Dioxide 31 H Anion Gap 5 BUN 14 Creatinine 0.58 Est GFR ( Amer) > 60 Est GFR (Non-Af Amer) > 60 Glucose 97 Calcium 8.7 06/27/18 06/28/18 06/28/18 15:35 04:39 18:57 Creatine Kinase 9637 H 4107 H Troponin I 0.129 06/29/18 06/29/18 06/30/18 05:40 10:37 05:50 Creatine Kinase 977 H 530 H Troponin I 0.090 07/01/18 07:42 Creatine Kinase 294 H Troponin I Impressions: Chest X-Ray 07/01/18 00:00 IMPRESSION: Small left effusion with mild associated consolidation possibly atelectasis or infection. Assessment and Plan - Diagnosis (1) Acute psychosis Is this a current diagnosis for this admission?: Yes Plan: 06/30/2018-likely cocaine induced. Now that hallucinations have resolved I will have psychiatry see the patient. 07/01/2018-the patient was seen by psychiatry at the time of admission. I have asked for follow-up visit. The patient may benefit from outpatient follow-up. (2) Acute renal failure due to rhabdomyolysis Is this a current diagnosis for this admission?: Yes Plan: 06/30/2018-acute renal failure has resolved with IV fluids. Continue to monitor renal function. 07/01/2018-resolved (3) Rhabdomyolysis Qualifiers: Rhabdomyolysis type: non-traumatic Qualified Code(s): M62.82 - Rhabd omyolysis Is this a current diagnosis for this admission?: Yes Plan: 06/30/2018-creatinine kinase is down to 530. Continue to monitor. I explained to the patient that discomfort will resolve slowly over time. 07/01/2018-continues to improve. Now that his renal failure is resolved we will try an anti-inflammatory for his chronic pain. (4) Chest pain Qualifiers: Chest pain type: chest pain on breathing Qualified Code(s): R07.1 - Chest pain on breathing; R07.81 - Pleurodynia Is this a current diagnosis for this admission?: Yes Plan: 06/30/2018-the patient has pleuritic chest pain. It could be related to rhabdo. I explained that this will slowly resolve over weeks. We will check a chest x- ray to rule out any infiltrative process. 07/01/2018-his pain is musculoskeletal. Now that the acute renal failure is resolved I will try dose of anti-inflammatory medication. (5) Hallucinations Is this a current diagnosis for this admission?: Yes Plan: 06/30/2018-likely due to his cocaine use. The patient reports that hallucinations have resolved. - Time Time Spent with patient: 15-24 minutes Medications reviewed and adjusted accordingly: Yes Anticipated discharge: Home - Plan Summary Plan Summary: Pleural effusion, abdominal pain, check urine, Levaquin for pleural effusion and possible infiltrate
[2018-07-02] MEDS: LEVOFLOXACIN 750 MG TABLET PO SCH (09:14)
[2018-07-02] MEDS: ASPIRIN 81 MG TABLET, CHEWABLE PO SCH (09:14)
[2018-07-02] MEDS: KETOROLAC TROMETHAMINE INJ/PF 30 MG/1 ML SDV IV PRN (18:15)
[2018-07-03] MEDS: KETOROLAC TROMETHAMINE INJ/PF 30 MG/1 ML SDV IV PRN ×2 (00:34→08:34)
[2018-07-03] MEDS: HEPARIN SOD (PORCINE) 5,000 UNIT/ML 1 ML SYRINGE SUBCUT SCH (06:39)
[2018-07-03] MEDS ORDERED: NAPROXEN 250 MG TABLET PO SCH (08:00)
[2018-07-03] MEDS: LEVOFLOXACIN 750 MG TABLET PO SCH (09:03)
[2018-07-03] MEDS: ASPIRIN 81 MG TABLET, CHEWABLE PO SCH (09:03)
--- NOTE | 2018-07-03 12:01 | PDOC PROGRESS REPORT ---
Subjective Progress Note for:: 07/02/18 Subjective:: The patient was still having some musculoskeletal pain. Reason For Visit: RHABDOMYOLYSIS,OWEN,HALLUCINATIONS Physical Exam Vital Signs: Temp Pulse Resp BP Pulse Ox 98.4 F 58 L 12 124/77 97 07/02/18 12:32 07/02/18 14:00 07/02/18 12:32 07/02/18 12:32 07/02/18 12:32 Intake & Output 07/01/18 07/02/18 07/03/18 06:59 06:59 06:59 Intake Total 3445 1680 Output Total 3400 1200 Balance 45 480 Weight 73.9 kg 73.9 kg General appearance: PRESENT: cooperative, mild distress, well-developed Head exam: PRESENT: atraumatic, normocephalic Respiratory exam: PRESENT: clear to auscultation rogelio, symmetrical, unlabored. ABSENT: accessory muscle use, rales, rhonchi, wheezes Cardiovascular exam: PRESENT: RRR, +S1, +S2 GI/Abdominal exam: PRESENT: normal bowel sounds, soft, tenderness - Mild in the suprapubic region. ABSENT: distended, guarding Rectal exam: PRESENT: deferred Gentrourinary exam: ABSENT: indwelling catheter Extremities exam: ABSENT: pedal edema Musculoskeletal exam: PRESENT: full ROM, normal inspection Neurological exam: PRESENT: alert, awake, oriented to person, oriented to place, oriented to time, oriented to situation, CN II-XII grossly intact Psychiatric exam: PRESENT: appropriate affect, normal mood. ABSENT: agitated, anxious Focused psych exam: ABSENT: delusional, restlessness Results Laboratory Results: 07/02/18 05:13 07/02/18 05:13 07/02/18 07/02/18 05:13 05:13 WBC 3.1 L RBC 4.00 L Hgb 13.7 Hct 39.5 MCV 99 H MCH 34.2 H MCHC 34.7 RDW 13.6 Plt Count 59 L Seg Neutrophils % 44.4 Lymphocytes % 36.5 Monocytes % 14.9 H Eosinophils % 3.0 Basophils % 1.2 Absolute Neutrophils 1.4 L Absolute Lymphocytes 1.1 Absolute Monocytes 0.5 Absolute Eosinophils 0.1 Absolute Basophils 0.0 Sodium 136.8 L Potassium 3.8 Chloride 102 Carbon Dioxide 29 Anion Gap 6 BUN 14 Creatinine 0.68 Est GFR ( Amer) > 60 Est GFR (Non-Af Amer) > 60 Glucose 101 Calcium 8.9 Total Bilirubin 1.7 H AST 150 H ALT 80 H Alkaline Phosphatase 68 Total Protein 7.1 Albumin 3.0 L 06/27/18 06/28/18 06/28/18 15:35 04:39 18:57 Creatine Kinase 9637 H 4107 H Troponin I 0.129 06/29/18 06/29/18 06/30/18 05:40 10:37 05:50 Creatine Kinase 977 H 530 H Troponin I 0.090 07/01/18 07:42 Creatine Kinase 294 H Troponin I Impressions: Chest X-Ray 07/01/18 00:00 IMPRESSION: Small left effusion with mild associated consolidation possibly atelectasis or infection. Assessment and Plan - Diagnosis (1) Acute psychosis Is this a current diagnosis for this admission?: Yes Plan: 06/30/2018-likely cocaine induced. Now that hallucinations have resolved I will have psychiatry see the patient. 07/01/2018-the patient was seen by psychiatry at the time of admission. I have asked for follow-up visit. The patient may benefit from outpatient follow-up. 07/02/2018-resolved (2) Acute renal failure due to rhabdomyolysis Is this a current diagnosis for this admission?: Yes Plan: 06/30/2018-acute renal failure has resolved with IV fluids. Continue to monitor renal function. 07/01/2018-resolved 07/02/2018-resolved (3) Rhabdomyolysis Qualifiers: Rhabdomyolysis type: non-traumatic Qualified Code(s): M62.82 - Rhab domyolysis Is this a current diagnosis for this admission?: Yes Plan: 06/30/2018-creatinine kinase is down to 530. Continue to monitor. I explained to the patient that discomfort will resolve slowly over time. 07/01/2018-continues to improve. Now that his renal failure is resolved we will try an anti-inflammatory for his chronic pain. 07/02/2018-creatinine kinase still slightly above normal but much improved. (4) Chest pain Qualifiers: Chest pain type: chest pain on breathing Qualified Code(s): R07.1 - Chest pain on breathing; R07.81 - Pleurodynia Is this a current diagnosis for this admission?: Yes Plan: 06/30/2018-the patient has pleuritic chest pain. It could be related to rhabdo. I explained that this will slowly resolve over weeks. We will check a chest x- ray to rule out any infiltrative process. 07/01/2018-his pain is musculoskeletal. Now that the acute renal failure is resolved I will try dose of anti-inflammatory medication. 07/02/2018-musculoskeletal. Anti-inflammatories will be helpful. (5) Hallucinations Is this a current diagnosis for this admission?: Yes Plan: 06/30/2018-likely due to his cocaine use. The patient reports that hallucinations have resolved. Resolved - Time Time Spent with patient: 15-24 minutes Medications reviewed and adjusted accordingly: Yes Anticipated discharge: Home
--- NOTE | 2018-07-03 12:17 | PDOC DISCHARGE SUMMARY ---
General - Admit/Disc Date/PCP Admission Date/Primary Care Provider: 06/27/18 17:42 Discharge Date: 07/03/18 - Discharge Diagnosis (1) Acute psychosis Is this a current diagnosis for this admission?: Yes Summary: Acute psychosis from substance abuse. The patient uses cocaine. He took a drug that was given to him by a friend. He developed hallucinations. His alcohol level was undetectable on admission and he has no evidence of delirium tremens. He has no further hallucinations. (2) Acute renal failure due to rhabdomyolysis Is this a current diagnosis for this admission?: Yes Summary: The patient had elevated creatinine kinase on admission with elevated serum creatinine. Kidney injury has resolved with IV fluids in the rhabdo has been improving since admission as well. His creatinine kinase was still slightly elevated yesterday. This will resolve over the next several days. The patient was not found down and so the rhabdo was likely due to his substance use. (3) Rhabdomyolysis Is this a current diagnosis for this admission?: Yes Summary: As above (4) Chest pain Is this a current diagnosis for this admission?: Yes Summary: Patient has been quite achy since admission. His discomfort is musculoskeletal. Now that his acute kidney injury has resolved she should use anti- inflammatories as an outpatient. I reassured him that the soreness will go away eventually. (5) Hallucinations Is this a current diagnosis for this admission?: Yes Summary: Secondary to substance abuse. Resolved. (6) Klebsiella cystitis Is this a current diagnosis for this admission?: Yes Summary: The patient was complaining of suprapubic discomfort. Urine specimen was obtained. Klebsiella was isolated. It is very sensitive. Because of all of his allergies he was discharged on levofloxacin to complete therapy as an outpatient. - Additional Information Resuscitation Status: Full Code Prescriptions: Levofloxacin [Levaquin 250 mg Tablet] 250 mg PO DAILY 5 Days #5 tablet Home Medications: Aspirin [Aspirin 81 mg Chewable Tablet] 81 mg PO DAILY tab.chew 07/03/18 Levofloxacin [Levaquin 250 mg Tablet] 250 mg PO DAILY 5 Days #5 tablet 07/03/18 History of Present Illness Patient complains of: Acute encephalopathy with hallucination History of Present Illness: JING BONILLA is a 63 year old male history of alcoholism and substance use. He states he took a drug that a friend gave him. He began to have hallucinations that were quite vivid. This was extremely disturbing and he reported to the emergency department. He was found to have positive urine drug screen for cocaine but no alcohol. He had acute kidney injury with rhabdomyolysis. He was seen by psychiatry in the emergency department and referred to the hospitalist service for admission Hospital Course Hospital Course: With aggressive IV fluids the patient's acute kidney injury and rhabdomyolysis slowly improved and resolved. His hallucinations ceased with no further use of cocaine. He is to prominent issues were ongoing musculoskeletal pain in his chest and rib area. This was treated with anti-inflammatory medications once the kidney injury resolved. 2 days prior to discharge she developed suprapubic discomfort with foul-smelling urine. Klebsiella was isolated in the urine. Due to multiple antibiotic allergies the patient was placed on levofloxacin and will continue his antibiotics to completion as an outpatient. Physical Exam Vital Signs: Temp Pulse Resp BP Pulse Ox 98.1 F 47 L 15 129/64 H 97 07/03/18 07:56 07/03/18 07:56 07/03/18 07:56 07/03/18 07:56 07/03/18 07:56 Intake & Output 07/02/18 07/03/18 07/04/18 06:59 06:59 06:59 Intake Total 1680 1078 Output Total 1200 800 Balance 480 278 Weight 73.9 kg 73.9 kg General appearance: PRESENT: no acute distress, cooperative, well-developed Head exam: PRESENT: atraumatic, normocephalic Respiratory exam: PRESENT: clear to auscultation rogelio, symmetrical, unlabored. ABSENT: accessory muscle use, rales, rhonchi, tachypnea, wheezes Cardiovascular exam: PRESENT: RRR, +S1, +S2 GI/Abdominal exam: PRESENT: normal bowel sounds, soft. ABSENT: distended, tenderness Rectal exam: PRESENT: deferred Gentrourinary exam: ABSENT: indwelling catheter Extremities exam: ABSENT: pedal edema Neurological exam: PRESENT: alert, awake, oriented to person, oriented to place, oriented to time, oriented to situation, CN II-XII grossly intact Psychiatric exam: PRESENT: appropriate affect, normal mood. ABSENT: agitated, anxious Focused psych exam: ABSENT: delusional, restlessness Results Laboratory Results: 07/02/18 05:13 07/02/18 05:13 06/27/18 06/28/18 06/28/18 15:35 04:39 18:57 Creatine Kinase 9637 H 4107 H Troponin I 0.129 06/29/18 06/29/18 06/30/18 05:40 10:37 05:50 Creatine Kinase 977 H 530 H Troponin I 0.090 07/01/18 07:42 Creatine Kinase 294 H Troponin I Impressions: Chest X-Ray 07/01/18 00:00 IMPRESSION: Small left effusion with mild associated consolidation possibly atelectasis or infection. Qualifiers - * PATIENT BEING DISCHARGED WITH ANY OF THE FOLLOWING DIAGNOSIS: No Plan Discharge Plan: At the end of the encounter the patient admitted that he was going to seek help for his alcohol and substance use. I have asked the staff to provide information regarding available programs. 40 minutes was dedicated to this discharge. Time Spent: Greater than 30 Minutes
[2018-07-03 13:33] VITALS: BP 140/72
== END 2018-07-03 14:37 | disposition home or self-care (01) | DRG 683 ==
LOC: ER 15:03 → EH 17:42 → 5 21:57
PROVIDERS: ADMIT Family Medicine; ATTEND Family Medicine
DX: N17.9 Acute kidney failure, unspecified (principal); M62.82 Rhabdomyolysis; F15.151 Other stimulant abuse with stimulant-induced psychotic disorder with hallucinations; N30.90 Cystitis, unspecified without hematuria; I10 Essential (primary) hypertension; M19.90 Unspecified osteoarthritis, unspecified site; F14.10 Cocaine abuse, uncomplicated; F15.10 Other stimulant abuse, uncomplicated; F10.20 Alcohol dependence, uncomplicated; E78.5 Hyperlipidemia, unspecified; B96.1 Klebsiella pneumoniae [K. pneumoniae] as the cause of diseases classified elsewhere; K21.9 Gastro-esophageal reflux disease without esophagitis; R07.81 Pleurodynia; Z87.891 Personal history of nicotine dependence; Z82.61 Family history of arthritis; Z82.49 Family history of ischemic heart disease and other diseases of the circulatory system; Z79.82 Long term (current) use of aspirin; Z88.1 Allergy status to other antibiotic agents; Z88.3 Allergy status to other anti-infective agents; Z88.0 Allergy status to penicillin
CPT/HCPCS: 36415; 71046; 80048; 80053; 80076; 80307; 81001; 82140; 82550; 84484; 85025; 87086; 87088; 87186; 93005; 93010; 99291; J1885; J2060; J2270; J7030; J7120

== ENCOUNTER 2018-09-03 02:52 | Emergency (ER) | payer MEDICARE, MEDICAID ==
[2018-09-03 06:10] VITALS: BP 149/78
== END 2018-09-03 06:56 | disposition left against medical advice (07) ==
LOC: ER 02:52
DX: Z53.21 Procedure and treatment not carried out due to patient leaving prior to being seen by health care provider (principal)

== ENCOUNTER 2018-09-10 18:06 | Emergency (ER) | payer MEDICARE, MEDICAID ==
[2018-09-10] MEDS ORDERED: ASPIRIN 81 MG TABLET, CHEWABLE PO ONE (20:18)
[2018-09-10] MEDS ORDERED: ONDANSETRON HCL INJ/PF 4 MG/2 ML SDV IV ONE (20:59)
--- NOTE | 2018-09-10 21:01 | ER Document Report ---
ED Medical Screen (RME) - General Chief Complaint: Chest Pain Stated Complaint: CHEST PAIN Time Seen by Provider: 09/10/18 20:49 Notes: 63-year-old male chief complaint of swelling in both legs and almost whole body pain. He fell 2 nights ago, he has various wounds in different stages of healing mainly over the right hand, he has right elbow pain, he has abrasions over the knees, pain over both legs. He does report intermittent chest pain that has been going on for a while. History of chronic alcoholism and alcohol withdrawal, has been drinking today. He came by EMS. TRAVEL OUTSIDE OF THE [place] IN LAST 30 DAYS: No - Related Data Allergies/Adverse Reactions: amoxicillin [Amoxicillin] Allergy (Unknown, Verified 09/10/18 18:08) ampicillin [Ampicillin] Allergy (Unknown, Verified 09/10/18 18:08) ceftriaxone sodium [From Rocephin] Allergy (Unknown, Verified 09/10/18 18:08) Cephalosporins Allergy (Unknown, Verified 09/10/18 18:08) Penicillins Allergy (Unknown, Verified 09/10/18 18:08) tetracycline [Tetracycline] Allergy (Unknown, Verified 09/10/18 18:08) Past Medical History - Past Medical History Cardiac Medical History: Reports: Hx Hypercholesterolemia, Hx Hypertension Denies: Hx Congestive Heart Failure, Hx Heart Attack Pulmonary Medical History: Neurological Medical History: Renal/ Medical History: Denies: Hx Peritoneal Dialysis GI Medical History: Reports: Hx Gastroesophageal Reflux Disease - PPI dependent Musculoskeltal Medical History: Reports Hx Arthritis, Reports Hx Musculoskeletal Deformity, Reports Hx Musculoskeletal Trauma Psychiatric Medical History: Denies: Hx Depression Past Surgical History: Reports: Hx Appendectomy, Hx Orthopedic Surgery - Immunizations Hx Diphtheria, Pertussis, Tetanus Vaccination: Yes - 2016 History of Influenza Vaccine for 12/2016 - 05/2017 Season: No Physical Exam - Vital signs Vitals: Temp Pulse Resp BP Pulse Ox 99.4 F 90 16 137/81 H 93 09/10/18 18:29 09/10/18 18:29 09/10/18 18:29 09/10/18 18:29 09/10/18 18:29 - Respiratory Respiratory status: No respiratory distress Chest status: No: Tender Breath sounds: Normal - Abdominal Inspection: Normal Tenderness: Nontender - Neurological Orientation: AAOx4 Royal Coma Scale Eye Opening: Spontaneous Royal Coma Scale Verbal: Oriented Royal Coma Scale Motor: Obeys Commands Royal Coma Scale Total: 15 Course - Re-evaluation Re-evalutation: I have greeted and performed a rapid initial assessment of this patient. A comprehensive ED assessment and evaluation of the patient, analysis of test results and completion of the medical decision making process will be conducted by additional ED providers. - Vital Signs Vital signs: Temp Pulse Resp BP Pulse Ox 99.4 F 90 16 137/81 H 93 09/10/18 18:29 09/10/18 18:29 09/10/18 18:29 09/10/18 18:29 09/10/18 18:29
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
[2018-09-10 21:11] LABS: ABSOLUTE BASOPHILS # (AUTO) 0.1 10^3/uL (0.0-0.2); ABSOLUTE EOSINOPHILS # (AUTO) 0.2 10^3/uL (0.0-0.6); ABSOLUTE LYMPHOCYTES (AUTO) 2.5 10^3/uL (0.5-4.7); ABSOLUTE MONOCYTES (AUTO) 0.4 10^3/uL (0.1-1.4); ABSOLUTE NEUT (AUTO) 1.7 10^3/uL (1.7-8.2); BASOPHILS % (AUTO) 1.2 % (0-2); EOSINOPHILS % (AUTO) 4.6 % (0-6); HEMATOCRIT 40.9 % (37.9-51.0); HEMOGLOBIN 14.2 g/dL (13.5-17.0); LYMPHOCYTES % (AUTO) 51.3 % (13-45); MEAN CORPUSCULAR HEMOGLOBIN 33.8 pg (27.0-33.4); MEAN CORPUSCULAR HGB CONC 34.8 g/dL (32.0-36.0); MEAN CORPUSCULAR VOLUME 97 fl (80-97); MONOCYTES % (AUTO) 8.1 % (3-13); RED BLOOD COUNT 4.21 10^6/uL (4.35-5.55); RED CELL DISTRIBUTION WIDTH 14.2 % (11.5-14.0); SEGMENTED NEUTROPHILS % (AUTO) 34.8 % (42-78); TOTAL CELLS COUNTED % (AUTO) 100 %; WHITE BLOOD COUNT 4.9 10^3/uL (4.0-10.5)
[2018-09-10 21:28] LABS: ALANINE AMINOTRANSFERASE 43 U/L (21-72); ALBUMIN 3.9 g/dL (3.5-5.0); ALKALINE PHOSPHATASE 97 U/L (38-126); ANION GAP 9 (5-19); ASPARTATE AMINO TRANSFERASE 105 U/L (17-59); BILIRUBIN,DIRECT 0.8 mg/dL (0.0-0.4); BILIRUBIN,TOTAL 1.7 mg/dL (0.2-1.3); BLOOD UREA NITROGEN 7 mg/dL (7-20); CALCIUM 8.6 mg/dL (8.4-10.2); CARBON DIOXIDE 25 mmol/L (22-30); CHLORIDE 111 mmol/L (98-107); CREATINE KINASE 314 U/L (55-170); GLUCOSE 112 mg/dL (75-110); POTASSIUM 3.7 mmol/L (3.6-5.0); SODIUM 144.8 mmol/L (137-145); TOTAL PROTEIN 8.9 g/dL (6.3-8.2)
[2018-09-10 21:39] LABS: PLATELET COUNT 62 10^3/uL (150-450)
[2018-09-10 21:41] LABS: CREATINE KINASE MB 3.02 ng/mL (<4.55); TROPONIN I 0.016 ng/mL
[2018-09-10 21:42] LABS: APPEARANCE,URINE SLIGHTLY-CLOUDY; BILIRUBIN,URINE SMALL (NEGATIVE); CALCIUM OXALATE CRYSTALS,URINE MANY /HPF; COLOR,URINE AMBER; GLUCOSE, URINE NEGATIVE (NEGATIVE); KETONES,URINE NEGATIVE (NEGATIVE); LEUKOCYTE ESTERASE,URINE NEGATIVE (NEGATIVE); NITRITE,URINE NEGATIVE (NEGATIVE); PROTEIN,URINE 30 mg/dL (NEGATIVE); URINE SPECIFIC GRAVITY 1.028
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
[2018-09-10] MEDS ORDERED: DIPH/PERTUSS(ACELL)/TETANUS VAC/PF 0.5 ML SYR (>=10YO) IM ONE (22:39)
[2018-09-10 22:55] LABS: INTERNATIONAL RATION (INR) 1.52; PARTIAL THROMBOPLASTIN TIME 35.1 SEC (23.5-35.8); PROTHROMBIN TIME 18.5 SEC (11.4-15.4)
--- NOTE | 2018-09-10 23:07 | EKG REPORT ---
SEVERITY:- ABNORMAL ECG - SINUS RHYTHM RBBB AND LAFB : Confirmed by: Tobi Rodriguez 10-Sep-2018 23:06:32
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
[2018-09-11 03:49] LABS: URINE AMPHETAMINES SCREEN NEGATIVE; URINE BARBITURATES SCREEN NEGATIVE; URINE BENZODIAZEPINES SCREEN NEGATIVE; URINE COCAINE SCREEN NEGATIVE; URINE MARIJUANA (THC) SCREEN NEGATIVE; URINE METHADONE SCREEN NEGATIVE; URINE PHENCYCLIDINE SCREEN NEGATIVE
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
[2018-09-11] MEDS ORDERED: CLONIDINE HCL 0.1 MG TABLET PO ONE (07:30)
[2018-09-11] MEDS ORDERED: LORAZEPAM INJ 2 MG/1 ML VIAL IV ONE ×2 (07:30→10:24)
--- NOTE | 2018-09-11 10:28 | ER Document Report ---
Doctor's Note Notes: 09/11/18 10:26 I have evaluated this pt. today and he has no c/o of chest pain. He is somewhat tremulous and wants help with his alcohol abuse. I don't feel he needs to be medically admitted. He will be assessed later by psych. for a detox bed.
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
[2018-09-11 17:06] VITALS: BP 109/66
== END 2018-09-11 17:10 | disposition home or self-care (01) ==
LOC: ER 18:06
DX: S00.81XA Abrasion of other part of head, initial encounter (principal); S80.812A Abrasion, left lower leg, initial encounter; S80.811A Abrasion, right lower leg, initial encounter; S50.311A Abrasion of right elbow, initial encounter; S50.811A Abrasion of right forearm, initial encounter; T14.8XXA Other injury of unspecified body region, initial encounter; R07.9 Chest pain, unspecified; V19.9XXA Pedal cyclist (driver) (passenger) injured in unspecified traffic accident, initial encounter; F10.229 Alcohol dependence with intoxication, unspecified; R79.89 Other specified abnormal findings of blood chemistry; I10 Essential (primary) hypertension; Z88.0 Allergy status to penicillin; Z88.1 Allergy status to other antibiotic agents
CPT/HCPCS: 93005; 96376; 99285; 90471; 96374; 96375; 36415; 82553; 80307 ×2; 82550; 85025; 85610; 85730; 80053; 81001; 84484; 71045; 73080; 73130; 73590; 70450; 72125; 90715; 93010; A9270; J2060; J2405

== ENCOUNTER 2018-10-28 21:10 | Emergency (ER) | payer MEDICARE, MEDICAID ==
[2018-10-29] MEDS ORDERED: TRAMADOL HCL 50 MG TABLET PO ONE ×2 (03:45→07:48)
--- NOTE | 2018-10-29 03:50 | ER Document Report ---
ED Extremity Problem, Lower - General TRAVEL OUTSIDE OF THE [place] IN LAST 30 DAYS: No <JING MCHUGH - Last Filed: 10/29/18 08:24> <RONITBEE Makayla - Last Filed: 10/29/18 11:38> - General Chief Complaint: Leg Swelling Stated Complaint: LEG PAIN/SWELLING Time Seen by Provider: 10/29/18 03:33 Primary Care Provider: JUANJOSE MCCABE MD [ACTIVE STAFF] - Follow up as needed ABE FRENCH MD [ACTIVE STAFF] - Follow up as needed Notes: 63-year-old male with history of EtOH use, polysubstance abuse, history of liver failure presents to the emergency department with chief complaint of right lower extremity redness and swelling x1 week. Patient states that it started about a week ago "in [place] jailhouse" and he noticed that his red was swollen and very pa inful to touch. He pushed on it and pointed out pitting edema. Patient is also complaining of some left lower quadrant pain at the site of his surgical scar from a previous incarcerated inguinal hernia surgery. Patient denies any fevers or recent illness, denies nausea or vomiting, denies any constipation or inability to pass flatus, denies any acute chest pain or acute shortness of breath, no other complaints. When I asked patient about his social history he denies any substance abuse and states "man I am too old for that I have not done that in years" but documentation shows that he is only recently sober. (JING MCHUGH) - Related Data Allergies/Adverse Reactions: amoxicillin [Amoxicillin] Allergy (Unknown, Verified 10/28/18 21:16) ampicillin [Ampicillin] Allergy (Unknown, Verified 10/28/18 21:16) ceftriaxone sodium [From Rocephin] Allergy (Unknown, Verified 10/28/18 21:16) Cephalosporins Allergy (Unknown, Verified 10/28/18 21:16) Penicillins Allergy (Unknown, Verified 10/28/18 21:16) tetracycline [Tetracycline] Allergy (Unknown, Verified 10/28/18 21:16) Past Medical History - Social History Smoking Status: Current Every Day Smoker Family History: Reviewed & Not Pertinent, Arthritis, Hypertension Patient has suicidal ideation: No Patient has homicidal ideation: No - Past Medical History Cardiac Medical History: Reports: Hx Hypercholesterolemia, Hx Hypertension Denies: Hx Congestive Heart Failure, Hx Heart Attack Pulmonary Medical History: Neurological Medical History: Renal/ Medical History: Denies: Hx Peritoneal Dialysis GI Medical History: Reports: Hx Gastroesophageal Reflux Disease - PPI dependent Musculoskeletal Medical History: Reports Hx Arthritis, Reports Hx Musculoskeletal Deformity, Reports Hx Musculoskeletal Trauma Psychiatric Medical History: Denies: Hx Depression Past Surgical History: Reports: Hx Appendectomy, Hx Orthopedic Surgery - Immunizations Hx Diphtheria, Pertussis, Tetanus Vaccination: Yes - 2015 <JING MCHUGH - Last Filed: 10/29/18 08:24> Review of Systems - Review of Systems Constitutional: See HPI EENT: No symptoms reported Cardiovascular: See HPI Respiratory: See HPI Gastrointestinal: See HPI Genitourinary: No symptoms reported Male Genitourinary: No symptoms reported Musculoskeletal: See HPI Skin: See HPI Hematologic/Lymphatic: No symptoms reported Neurological/Psychological: No symptoms reported <JING MCHUGH - Last Filed: 10/29/18 08:24> Physical Exam <JING MCHUGH - Last Filed: 10/29/18 08:24> - Vital signs Vitals: Temp Pulse Resp BP Pulse Ox 98.1 F 62 18 118/96 H 97 10/28/18 21:19 10/28/18 21:19 10/28/18 21:19 10/28/18 21:19 10/28/18 21:19 - Notes Notes: PHYSICAL EXAMINATION: Reviewed vital signs and charting by RN GENERAL: Alert, interacts well. No acute distress. HEAD: Normocephalic, atraumatic. EYES: Pupils equal and round. Extraocular movements intact. ENT: Oral mucosa moist, tongue midline. NECK: Full range of motion. Trachea midline. LUNGS: Clear to auscultation bilaterally, no wheezes, rales, or rhonchi. No respiratory distress. HEART: Regular rate and rhythm. No murmur ABDOMEN: soft, non-tender. No distention. Bowel sounds present EXTREMITIES: Moves all 4 extremities spontaneously. Unilateral lower extremity swelling, right leg with erythema and 1+ pitting edema, acute pain to palpation. PSYCH: Normal affect, normal mood. SKIN: Warm, dry, normal turgor. No rashes or lesions noted. (JING MCHUGH) Course - Laboratory Result Diagrams: 10/29/18 05:16 10/29/18 05:16 <JING MCHUGH - Last Filed: 10/29/18 08:24> - Laboratory Result Diagrams: 10/29/18 05:16 10/29/18 05:16 - EKG Interpretation by Me Rate: Bradycardia Rhythm: NSR <BEE COTTRELL - Last Filed: 10/29/18 11:38> - Re-evaluation Re-evalutation: 10/29/18 03:49 Patient is presenting for acute right lower extremity pain and edema and some left lower quadrant abdominal pain, patient is a poor historian based on chart review. Patient does have significant unilateral swelling so I will go ahead and order a lower extremity venous Doppler. Lab work has been ordered to include urinalysis and urine drug screen. 10/29/18 05:45 I spoke with charge nurse and the venous Doppler will not be able to get completed until the normal business hours in the morning. There is a significant delay in after speaking with my attending physician based on the patient's symptoms obtaining a d-dimer in lieu of the Doppler to try to screen him out does not make sense in this case. Urinalysis did not show any infection and urine drug screen was negative except for benzodiazepines for which he says he is on Librium for alcoholism. CBC and CMP pending. 10/29/18 07:36 Patient is awaiting left lower extremity venous Doppler. Lab work has resulted. Patient mildly hypokalemic for which she received potassium chloride p.o. 40 mEq, patient's T bili and D bili slightly elevated, patient is leukopenic but this is his baseline. Patient's lipase is 532. 10/29/18 07:49 Patient states that the tramadol did help his pain and he is requesting another dose. It has been 4 hours so I will give him another dose of tramadol 50 mg p.o. once. I added an amylase to ensure that this is not an acute on chronic pancreatitis or alcoholic pancreatitis, although patient does not have any clinical signs or symptoms at this time. 10/29/18 08:24 The venous Doppler was unofficially read as negative for DVT. An abdominal ultrasound limited was added to assess pancreas. Pending the abdominal ultrasound plan is to help patient obtain services to support him as his goal is to maintain sobriety. A warm bedside handoff was performed with Bee Guzman NP. She accepted care of the patient. (JING MCHUGH) Disposition given at bedside from Jing Mchugh NP at 0830. Vitals stable, patient no distress, afebrile. Ultrasound of lower extremity negative for DVT. Patient does as noted pitting edema. Patient did verbalize that he would like to detox at a center for alcohol abuse, states he has been alcohol free for the last 9 days, currently is on Librium. slightly elevated lipase however when trending his lipase, he has been in roughly the 430s. She did receive potassium replacement on previous shift, ultrasound of abdomen limited unremarkable, did suggest a CT of abdomen and pelvis Unable to obtain IV access, technical support consultant said that he would be able to see pancreas without contrast. CT shows diverticulosis, no diverticulitis as well as splenomegaly, along with his chronic liver disease. Did consult with social service agency director, Marco Hussein, who did speak with a detox facility due to patient's chronic use of alcohol. Advised patient to wear compression stockings, elevate leg. Follow-up with primary care provider within the next 24 hours. After performing a Medical Screening Examination, I estimate there is LOW risk for ACUTE APPENDICITIS, BOWEL OBSTRUCTION, ACUTE CHOLECYSTITIS, PERFORATED DIVERTICULITIS, INCARCERATED RADHA IA, PANCREATITIS, TESTICULAR TORSION or PERFORATED ULCER, thus I consider the discharge disposition reasonable. Also, there is no evidence or peritonitis, sepsis, or toxicity. I have reevaluated this patient multiple times and no significant life threatening changes are noted. The patient and I have discussed the diagnosis and risks, and we agree with discharging home with close follow- up with the understanding that symptoms and presentations can change. We also discussed returning to the Emergency Department immediately if new or worsening symptoms occur. We have discussed the symptoms which are most concerning (e.g., bloody stool, fever, changing or worsening pain, intractable vomiting - standard verbal up date) that necessitate immediate return. (BEE COTTRELL) - Vital Signs Vital signs: Temp Pulse Resp BP Pulse Ox 97.7 F 53 L 14 122/77 98 10/29/18 02:31 10/29/18 02:31 10/29/18 02:31 10/29/18 02:31 10/29/18 02:31 - Laboratory Laboratory results interpreted by me: 10/29/18 10/29/18 10/29/18 02:50 05:16 05:16 WBC 2.5 L RBC 4.03 L Hgb 13.4 L RDW 14.5 H Plt Count 38 L Eosinophils % 7.8 H Absolute Neutrophils 1.1 L Potassium 3.1 L Magnesium Total Bilirubin 1.9 H Direct Bilirubin 0.8 H AST 81 H Albumin 3.2 L Amylase Lipase 532.8 H Urine Urobilinogen 4.0 H Salicylates Acetaminophen 10/29/18 10/29/18 05:16 05:16 WBC RBC Hgb RDW Plt Count Eosinophils % Absolute Neutrophils Potassium Magnesium 1.5 L Total Bilirubin Direct Bilirubin AST Albumin Amylase 115 H Lipase Urine Urobilinogen Salicylates < 1.0 L Acetaminophen < 10 L Discharge <JING MCHUGH - Last Filed: 10/29/18 08:24> <BEE COTTRELL - Last Filed: 10/29/18 11:38> - Discharge Clinical Impression: Left leg pain, Left leg swelling, Alcohol abuse, Elevated liver chemistry, Elevated lipase, Abdominal pain Condition: Stable Disposition: HOME, SELF-CARE Instructions: Abdominal Pain ([facility]), Chronic Alcoholism ([facility]), Leg Pain Nonspecific ([facility]) Additional Instructions: Leg Cramps There are many causes of leg cramps. Most of the time, there is no underlying serious medical condition. Calf muscle cramps that occur at rest or during the night are a nuisance, but are usually not caused by any serious medical problem. Leg cramps that occur during exercise (walking, stair climbing) can be caused by poor circulation. Cramping is more likely to occur if the legs swell. Over-exercise or overheating can cause muscle spasms even with good circulation. Cramp-like muscle pain can be an early symptom of blood clots in the lower leg. Sometimes cramping is due to a previous muscle injury. Occasionally cramping is a symptom of dehydration or of low levels of sodium, potassium, calcium or magnesium. When a cramp occurs, stretch gently and massage the cramped muscle. Get enough fluids, potassium, and sodium for the muscle to work normally. Avoid strenuous exercise for several days if you've been having frequent leg cramps. Medicines such a quinine may be helpful in some patients with night cramps. Call the doctor or return if you develop redness, swelling, bruising, or increased pain in the leg, or if the foot becomes cold, numb, pale, or discolored. Elevate your leg above the level of your heart, wear compression stockings. Your ultrasound was negative for DVT. Your CT of abdomen pelvis was unremarkable, shows that you do have diverticulosis, no diverticulitis. Along with your chronic liver disease. Follow-up with your primary care provider within the next 24 hours. Return immediately for any new or worsening symptoms. Follow up with primary care provider, call tomorrow to make followup appointment. Referrals: JUANJOSE MCCABE MD [ACTIVE STAFF] - Follow up as needed ABE FRENCH MD [ACTIVE STAFF] - Follow up as needed
[2018-10-29 04:35] LABS: APPEARANCE,URINE CLEAR; BILIRUBIN,URINE NEGATIVE (NEGATIVE); CALCIUM OXALATE CRYSTALS,URINE RARE /HPF; COLOR,URINE AMBER; GLUCOSE, URINE NEGATIVE (NEGATIVE); KETONES,URINE NEGATIVE (NEGATIVE); LEUKOCYTE ESTERASE,URINE NEGATIVE (NEGATIVE); NITRITE,URINE NEGATIVE (NEGATIVE); PROTEIN,URINE NEGATIVE (NEGATIVE); URINE SPECIFIC GRAVITY 1.014
[2018-10-29 04:57] LABS: URINE AMPHETAMINES SCREEN NEGATIVE; URINE BARBITURATES SCREEN NEGATIVE; URINE BENZODIAZEPINES SCREEN UNCONFIRMED POSITIVE; URINE COCAINE SCREEN NEGATIVE; URINE MARIJUANA (THC) SCREEN NEGATIVE; URINE METHADONE SCREEN NEGATIVE; URINE PHENCYCLIDINE SCREEN NEGATIVE
[2018-10-29 05:41] LABS: ABSOLUTE EOSINOPHILS # (AUTO) 0.2 10^3/uL (0.0-0.6); ABSOLUTE MONOCYTES (AUTO) 0.3 10^3/uL (0.1-1.4); ABSOLUTE NEUT (AUTO) 1.1 10^3/uL (1.7-8.2); BASOPHILS % (AUTO) 0.9 % (0-2); EOSINOPHILS % (AUTO) 7.8 % (0-6); HEMATOCRIT 38.1 % (37.9-51.0); HEMOGLOBIN 13.4 g/dL (13.5-17.0); LYMPHOCYTES % (AUTO) 38.9 % (13-45); MEAN CORPUSCULAR HEMOGLOBIN 33.2 pg (27.0-33.4); MEAN CORPUSCULAR HGB CONC 35.1 g/dL (32.0-36.0); MEAN CORPUSCULAR VOLUME 94 fl (80-97); RED BLOOD COUNT 4.03 10^6/uL (4.35-5.55); RED CELL DISTRIBUTION WIDTH 14.5 % (11.5-14.0); SEGMENTED NEUTROPHILS % (AUTO) 42.4 % (42-78); TOTAL CELLS COUNTED % (AUTO) 100 %; WHITE BLOOD COUNT 2.5 10^3/uL (4.0-10.5)
[2018-10-29 05:49] LABS: ALBUMIN 3.2 g/dL (3.5-5.0); ALKALINE PHOSPHATASE 72 U/L (38-126); ANION GAP 7 (5-19); ASPARTATE AMINO TRANSFERASE 81 U/L (17-59); BILIRUBIN,DIRECT 0.8 mg/dL (0.0-0.4); BILIRUBIN,TOTAL 1.9 mg/dL (0.2-1.3); BLOOD UREA NITROGEN 10 mg/dL (7-20); CALCIUM 8.8 mg/dL (8.4-10.2); CARBON DIOXIDE 27 mmol/L (22-30); CHLORIDE 107 mmol/L (98-107); GLUCOSE 105 mg/dL (75-110); POTASSIUM 3.1 mmol/L (3.6-5.0); TOTAL PROTEIN 7.6 g/dL (6.3-8.2)
[2018-10-29 06:37] LABS: PLATELET COUNT 38 10^3/uL (150-450)
[2018-10-29] MEDS ORDERED: POTASSIUM CHLORIDE 10 MEQ CAPSULE.ER PO ONE (07:36)
[2018-10-29] MEDS ORDERED: MORPHINE SULFATE 10 MG/ML INJ IV ONE (08:55)
[2018-10-29 09:27] LABS: ACETAMINOPHEN < 10 ug/mL (10-30); SALICYLATE < 1.0 mg/dL (2.0-20.0)
--- NOTE | 2018-10-29 09:34 | RADIOLOGY REPORT (SQ) ---
EXAM DESCRIPTION: U/S ABDOMEN LTD W/DOPPLER COMPLETED DATE/TIME: 10/29/2018 9:20 am REASON FOR STUDY: LLQ abd pain, elevated lipase COMPARISON: None. TECHNIQUE: Dynamic and static grayscale images acquired of the abdomen and recorded on PACS. [place] selected color Doppler and spectral images recorded. LIMITATIONS: None. FINDINGS: PANCREAS: No definite masses or sonographic evidence pancreatitis however limited visualiz ation. CT may be a consideration if clinically suspicious of pancreatic pathology. LIVER: Normal size. 14.9 cm. Normal echotexture. No masses. LIVER VASCULATURE: Normal directional flow of the main portal vein and hepatic veins. GALLBLADDER: No stones. Normal wall thickness. No pericholecystic fluid. ULTRASOUND-DETECTED ALCALA'S SIGN: Negative. INTRAHEPATIC DUCTS AND COMMON DUCT: CBD and intrahepatic ducts normal caliber. No filling defects. INFERIOR VENA CAVA: Normal flow. AORTA: Suboptimally visualized RIGHT KIDNEY: Normal size. Normal echogenicity. No solid or suspicious masses. No hydronephrosis. No calcifications. PERITONEAL AND RIGHT PLEURAL SPACE: No ascites or effusions. OTHER: No other significant findings. IMPRESSION: No definite pancreatic pathology related to the history of elevated lipase however there is limited visualization. CT if further evaluation indicated. Aorta suboptimally visualized. Stud y is otherwise unremarkable. TECHNICAL DOCUMENTATION: JOB ID: [id number] [employer]- All Rights Reserved Reading location - IP/workstation name: [email or web address]
--- NOTE | 2018-10-29 11:02 | RADIOLOGY REPORT (SQ) ---
EXAM DESCRIPTION: CT ABD/PELVIS NO ORAL OR IV COMPLETED DATE/TIME: 10/29/2018 10:32 am REASON FOR STUDY: elevated lipase, abd pain, history of alcoholism COMPARISON: 02/09/2018 TECHNIQUE: CT scan of the abdomen and pelvis performed without intravenous or oral contrast. Images reviewed with lung, soft tissue, and bone windows. Reconstructed coronal and sagittal MPR images revi ewed. All images stored on PACS. All CT scanners at this facility use dose modulation, iterative reconstruction, and/or weight based d osing when appropriate to reduce radiation dose to as low as reasonably achievable (ALARA). [facility]: Dose Right [facility]: CareDose [facility]: Dose Right [facility]: Teradose 4D [facility]: Interactive Fate RADIATION DOSE: 438 mGy cm LIMITATIONS: None. FINDINGS: LOWER CHEST: Coronary artery calcifications. No nodules or infiltrates. NON-CONTRASTED LIVER, SPLEEN, ADRENALS: Evaluation limited by lack of IV contrast. No identified sign ificant masses. Somewhat coarse hepatic contour. Splenomegaly, maximum span 15.4 cm. PANCREAS: No masses. No peripancreatic inflammatory changes. GALLBLADDER: No identified stones by CT criteria. No inflammatory changes to suggest cholecystitis. RIGHT KIDNEY AND URETER: No suspicious masses. Assessment limited by lack of IV contrast. No signif icant calcifications. No hydronephrosis or hydroureter. LEFT KIDNEY AND URETER: No suspicious masses. Assessment limited by lack of IV contrast. No signifi cant calcifications. No hydronephrosis or hydroureter. AORTA AND RETROPERITONEUM: No aneurysm. No retroperitoneal masses or adenopathy. BOWEL AND PERITONEAL CAVITY: No obvious masses or inflammatory changes. No free fluid. Sigmoid diver ticulosis. APPENDIX: Surgically absent. PELVIS, BLADDER, AND ABDOMINAL WALL:No abnormal masses. No free fluid. Bladder normal. BONES: No significant findings. OTHER: No other significant finding. IMPRESSION: 1. No acute noncontrast CT findings to explain abdominal pain. 2. Diverticulosis without evidence of acute diverticulitis. 3. Splenomegaly. 4. Somewhat coarse hepatic contour, suggestive of chronic liver disease. COMMENT: Quality ID # [id number]: Final reports with documentation of one or more dose reduction techniques (e.g., Automated exposure control, adjustment of the mA and/or kV according to patient size, use of iterative reconstruction technique) TECHNICAL DOCUMENTATION: JOB ID: [id number] [employer]- All Rights Reserved Reading location - IP/workstation name: [email or web address]
[2018-10-29] MEDS ORDERED: MAGNESIUM SULFATE/D5W 1 GM/100 ML RTUPB IV ONE (11:11)
--- NOTE | 2018-10-29 11:21 | EKG REPORT ---
SEVERITY:- ABNORMAL ECG - SINUS BRADYCARDIA RIGHT BUNDLE BRANCH BLOCK : Confirmed by: Tobi Rodriguez 29-Oct-2018 11:20:38
[2018-10-29] MEDS ORDERED: IBUPROFEN 600 MG TABLET PO ONE (11:22)
[2018-10-29 11:47] VITALS: BP 150/82
--- NOTE | 2018-10-29 12:06 | XCELERA REPORT ---
[address] [place] [facility] [address] Lower Extremity Venous Evaluation Procedure: Color flow and duplex imaging of the veins of the right lower extremity as well as the left Common Femoral vein. Right Sided Venous Evaluation Normal vessel filling wall to wall, compression and augmentation as well as Colour flow down to the infrageniculate veins. Left Sided Venous Evaluation The left common femoral vein is fully compressible. Spontaneous and phasic flow is present in the left common femoral vein. Interpretation Summary No duplex evidence of DVT or obstruction in the right lower extremity nor in the left Common Femoral vein. Name: JING BONILLA Age: 63 yrs Gender: Male : 1955 Patient Status: Emergency Patient Location: ER Study Date: 10/29/2018 08:11 AM Reason For Study: RLE swelling, pain Ordering Physician: JING COTA Performed By: Gisela Song : JING COTA > Jimmy Cabello
== END 2018-10-29 12:00 | disposition home or self-care (01) ==
LOC: ER 21:10
DX: M79.89 Other specified soft tissue disorders (principal); M79.605 Pain in left leg; F10.10 Alcohol abuse, uncomplicated; R79.89 Other specified abnormal findings of blood chemistry; R10.9 Unspecified abdominal pain; F17.200 Nicotine dependence, unspecified, uncomplicated; Z88.0 Allergy status to penicillin; E78.00 Pure hypercholesterolemia, unspecified; I10 Essential (primary) hypertension
CPT/HCPCS: 93005; 36415; 80307 ×4; 82150; 83690; 83735; 85025; 80053; 81001; 93971 ×2; 76705; 93976; 74176; 93010; A9270 ×3; 99284

== ENCOUNTER → 2018-12-03 | Outpatient (CLI) | payer MEDICARE, MEDICAID ==
--- NOTE | 2018-12-03 10:18 | RADIOLOGY REPORT (SQ) ---
EXAM DESCRIPTION: CT ABD/PELVIS WITH IV ORAL COMPLETED DATE/TIME: 12/03/2018 9:31 am REASON FOR STUDY: R10.32 LEFT LOWER QUADRANT PAIN R10.32 LEFT LOWER QUADRANT PAIN COMPARISON: 10/29/2018 TECHNIQUE: CT scan of the abdomen and pelvis performed using helical scanning technique with dynamic intravenous contrast injection. No oral contrast. Images reviewed with lung, soft tissue, and bone windows. Reconstructed coronal and sagittal MPR images reviewed. Delayed images for evaluation of the urinary system also acquired. All images stored on PACS. All CT scanners at this facility use dose modulation, iterative reconstruction, and/or weight based d osing when appropriate to reduce radiation dose to as low as reasonably achievable (ALARA). [facility]: Dose Right [facility]: CareDose [facility]: Dose Right [facility]: Teradose 4D [facility]: KOWN CONTRAST TYPE AND DOSE: contrast/concentration: Isovue 350.00 mg/ml; Total Contrast Delivered: 90.0 ml; Total Saline Delivered: 70.0 ml RENAL FUNCTION: Creatinine 0.7 RADIATION DOSE: CT Rad equipment meets quality standard of care and radiation dose reduction techniq ues were employed. CTDIvol: 8.4 - 10.4 mGy. DLP: 1003 mGy-cm.. LIMITATIONS: None. FINDINGS: LOWER CHEST: No significant findings. No nodules or infiltrates. LIVER: Normal size. No masses. No dilated ducts. SPLEEN: Normal size. No focal lesions. PANCREAS: No masses. No significant calcifications. No adjacent inflammation or peripancreatic fluid collections. Pancreatic duct not dilated. GALLBLADDER: No identified stones by CT criteria. No inflammatory changes to suggest cholecystitis. ADRENAL GLANDS: No significant masses or asymmetry. RIGHT KIDNEY AND URETER: No solid masses. No significant calcifications. No hydronephrosis or hyd roureter. LEFT KIDNEY AND URETER: No solid masses. No significant calcifications. No hydronephrosis or hydr oureter. AORTA AND VESSELS: No aneurysm. No dissection. Renal arteries, SMA, celiac without stenosis. RETROPERITONEUM: No retroperitoneal adenopathy, hemorrhage or masses. BOWEL AND PERITONEAL CAVITY: Scattered diverticuli. There are mild inflammatory changes noted in the left lower quadrant. This is best demonstrated on series 2 images 78-82. This may be related to a small left inguinal hernia. APPENDIX: Surgically absent. PELVIS: No mass. No free fluid. Normal bladder. ABDOMINAL WALL: As above. BONES: No significant or acute findings. OTHER: No other significant finding. IMPRESSION: Suspect small left inguinal hernia with inflammatory changes in the left lower quadrant as described above. Scattered diverticuli but no CT evidence of acute diverticulitis. TECHNICAL DOCUMENTATION: JOB ID: [id number] Quality ID # [id number]: Final reports with documentation of one or more dose reduction techniques (e.g., Au tomated exposure control, adjustment of the mA and/or kV according to patient size, use of iterative reconstruction technique) 2010 [employer]- All Rights Reserved Reading location - IP/workstation name: [email or web address]
== END ==
LOC: RAD 09:00
PROVIDERS: ATTEND Surgery
DX: R10.32 Left lower quadrant pain (principal)
CPT/HCPCS: 74177; 82565

== ENCOUNTER 2019-03-26 05:36 | Day surgery (SDC) | payer MEDICARE, MEDICAID ==
--- NOTE | 2019-03-19 10:31 | EKG REPORT ---
SEVERITY:- ABNORMAL ECG - SINUS RHYTHM RBBB AND LAFB : Confirmed by: Joss Cartwright MD 19-Mar-2019 10:26:32
[2019-03-19 10:50] LABS: HEMATOCRIT 45.1 % (37.9-51.0); HEMOGLOBIN 15.6 g/dL (13.5-17.0); MEAN CORPUSCULAR HEMOGLOBIN 33.2 pg (27.0-33.4); MEAN CORPUSCULAR HGB CONC 34.7 g/dL (32.0-36.0); MEAN CORPUSCULAR VOLUME 96 fl (80-97); RED BLOOD COUNT 4.71 10^6/uL (4.35-5.55); WHITE BLOOD COUNT 4.9 10^3/uL (4.0-10.5)
[2019-03-19 11:12] LABS: PLATELET COUNT 46 10^3/uL (150-450)
[2019-03-19 11:13] LABS: ANION GAP 15 (5-19); BLOOD UREA NITROGEN 5 mg/dL (7-20); CALCIUM 7.8 mg/dL (8.4-10.2); CARBON DIOXIDE 23 mmol/L (22-30); CHLORIDE 105 mmol/L (98-107); GLUCOSE 101 mg/dL (75-110); POTASSIUM 3.5 mmol/L (3.6-5.0)
[2019-03-19 11:14] LABS: ABSOLUTE LYMPHOCYTES# (MANUAL) 2.4 10^3/uL (0.5-4.7); ABSOLUTE MONOCYTES # (MANUAL) 0.5 10^3/uL (0.1-1.4); BASOPHILS % (MANUAL) 0 % (0-2); EOSINOPHILS % (MANUAL) 6 % (0-6); LYMPHOCYTES % (MANUAL) 48 % (13-45); MONOCYTES % (MANUAL) 10 % (3-13); SEGMENTED NEUTROPHILS % (MAN) 36 % (42-78); TOTAL CELLS COUNTED 100
[2019-03-19 11:15] LABS: ANISOCYTOSIS SLIGHT; PLATELET COMMENT DECREASED
[~2019-03-26 05:36] MED LIST: LACTATED RINGERS 1000 ML IV PRN; LIDOCAINE 0.5% INJ-PF (5 MG/ML) 50 ML SDV SUBCUT PRN
[2019-03-26] MEDS ORDERED: ONDANSETRON HCL INJ/PF 4 MG/2 ML SDV ONE (06:21)
[2019-03-26] MEDS ORDERED: SUGAMMADEX SODIUM 200 MG/2 ML SDV IV ONE (06:21)
[2019-03-26] MEDS ORDERED: FENTANYL CITRATE INJ/PF 100 MCG/2 ML AMPUL ONE (06:21)
[2019-03-26] MEDS ORDERED: PROPOFOL INJ 200 MG/20 ML VIAL IV ONE (06:21)
[2019-03-26] MEDS ORDERED: MIDAZOLAM 2 MG/2 ML INJ ONE (06:21)
[2019-03-26] MEDS ORDERED: DEXAMETHASONE SOD PHOSPHATE INJ 4 MG/1 ML VIAL ONE (06:21)
[2019-03-26] MEDS ORDERED: LIDOCAINE 0.5% INJ-PF (5 MG/ML) 50 ML SDV ONE (06:23)
[2019-03-26 06:46] LABS: ABSOLUTE BASOPHILS # (AUTO) 0.1 10^3/uL (0.0-0.2); ABSOLUTE EOSINOPHILS # (AUTO) 0.3 10^3/uL (0.0-0.6); ABSOLUTE LYMPHOCYTES (AUTO) 2.1 10^3/uL (0.5-4.7); ABSOLUTE MONOCYTES (AUTO) 0.5 10^3/uL (0.1-1.4); ABSOLUTE NEUT (AUTO) 1.6 10^3/uL (1.7-8.2); BASOPHILS % (AUTO) 1.3 % (0-2); EOSINOPHILS % (AUTO) 5.6 % (0-6); HEMATOCRIT 42.5 % (37.9-51.0); HEMOGLOBIN 14.7 g/dL (13.5-17.0); LYMPHOCYTES % (AUTO) 46.5 % (13-45); MEAN CORPUSCULAR HGB CONC 34.6 g/dL (32.0-36.0); MEAN CORPUSCULAR VOLUME 96 fl (80-97); MONOCYTES % (AUTO) 11.7 % (3-13); RED BLOOD COUNT 4.45 10^6/uL (4.35-5.55); RED CELL DISTRIBUTION WIDTH 14.9 % (11.5-14.0); SEGMENTED NEUTROPHILS % (AUTO) 34.9 % (42-78); TOTAL CELLS COUNTED % (AUTO) 100 %; WHITE BLOOD COUNT 4.6 10^3/uL (4.0-10.5)
[2019-03-26] MEDS ORDERED: VANCOMYCIN HCL INJ 500 MG VIAL ONE (06:55)
[2019-03-26 07:02] LABS: ALBUMIN 3.7 g/dL (3.5-5.0); ALKALINE PHOSPHATASE 98 U/L (38-126); ANION GAP 10 (5-19); ASPARTATE AMINO TRANSFERASE 134 U/L (17-59); BILIRUBIN,DIRECT 0.6 mg/dL (0.0-0.4); BILIRUBIN,TOTAL 1.8 mg/dL (0.2-1.3); BLOOD UREA NITROGEN 7 mg/dL (7-20); CALCIUM 8.6 mg/dL (8.4-10.2); CARBON DIOXIDE 27 mmol/L (22-30); CHLORIDE 107 mmol/L (98-107); GLUCOSE 113 mg/dL (75-110); POTASSIUM 3.6 mmol/L (3.6-5.0); TOTAL PROTEIN 8.5 g/dL (6.3-8.2)
[2019-03-26] MEDS ORDERED: BUPIVACAINE HCL 0.25 % INJ/PF (2.5 MG/1 ML) 30 ML VIAL ONE (07:15)
[2019-03-26 07:21] LABS: PLATELET COUNT 46 10^3/uL (150-450)
[2019-03-26] MEDS ORDERED: ACETAMINOPHEN 325 MG TABLET PO ONE (08:00)
[2019-03-26] MEDS ORDERED: MORPHINE SULFATE 10 MG/ML INJ IV PRN (08:15)
[2019-03-26] MEDS ORDERED: MEPERIDINE HCL/PF INJ 25 MG/1 ML DISP.SYRIN IV PRN (08:15)
[2019-03-26] MEDS ORDERED: DIPHENHYDRAMINE HCL 50 MG/ML VIAL IV PRN (08:15)
[2019-03-26] MEDS ORDERED: FENTANYL CITRATE INJ/PF 100 MCG/2 ML AMPUL IV PRN ×3 (08:15)
[2019-03-26] MEDS ORDERED: ONDANSETRON HCL INJ/PF 4 MG/2 ML SDV IV PRN (08:15)
[2019-03-26] MEDS ORDERED: PROMETHAZINE HCL INJ 25 MG/1 ML VIAL IV PRN ×2 (08:15)
[2019-03-26] MEDS ORDERED: IBUPROFEN 800 MG in NORMAL SALINE 250 ML IV ONE (09:00)
--- NOTE | 2019-03-26 10:20 | Discharge Summary ---
Discharge Summary (SDC) - Discharge Final Diagnosis: Recurrent left inguinal hernia. Initial right inguinal hernia. Date of Surgery: 03/26/19 Discharge Date: 03/26/19 Condition: Stable Treatment or Instructions: Discharge home. Diet as tolerated. Activity: No lifting greater than 10 pounds x 4 weeks. Follow-up with me in 7 to 10 days. Okay to shower on Friday. No tub baths or swimming pools x2 weeks. [place] 10/325 mg p.o. every 6 hours PRN for pain. Discharge Diet: As Tolerated Respiratory Treatments at Home: Deep Breathing/Coughing, Incentive Spirometer Discharge Activity: Balance Activity w/Rest, No Lifting Over 10 Pounds, No Lifting/Push/Pulling Home Care Assistance: None Needed Report the Following to Your Physician Immediately: Shortness of Breath, Nausea, Vomiting, Fever over 101 Degrees, Unusual Bleeding
[2019-03-26] MEDS ORDERED: KETOROLAC TROMETHAMINE INJ/PF 30 MG/1 ML SDV ONE (10:23)
--- NOTE | 2019-03-26 10:29 | Operative Report ---
Nonrecallable Operative Report DATE OF SURGERY: 03/26/19 PREOPERATIVE DIAGNOSIS: 1. Recurrent left inguinal hernia. 2. Initial right inguinal hernia. POSTOPERATIVE DIAGNOSIS: Same as above. OPERATION: Robot-assisted laparoscopic bilateral inguinal hernia repair with me preciado. SURGEON: CLARE RENNER ANESTHESIA: GA TISSUE REMOVED OR ALTERED: Portion of left sided Bard Marlex plug COMPLICATIONS: None apparent ESTIMATED BLOOD LOSS: 30 cc PROCEDURE: Drain/implants: Right and left large 3 DMax inguinal hernia mesh. Procedure in detail: After informed consent was obtained, the patient was brought to the operating room and laid in the supine position. The area of the abdomen was prepped and draped in a normal sterile fashion. A supraumbilical incision was created with a 15 blade scalpel. Dissection was carried through the subcutaneous tissues using sharp and blunt dissection. The linea alba fascia was incised sharply, the abdomen was entered sharply. The balloon trocar was inserted, and pneumoperitoneum was achieved. 2 right and left lateral 8 mm robotic trochars were then placed under direct laparoscopic visualization. The robot was then brought over the patient and docked appropriately. I then assumed my position at the surgeon's console. Attention was turned to the lower abdominal wall. There is a large amount of adhesion within the left lower quadrant. Secondary to this, an incision was created in the peritoneum 3 to 4 cm superior to the inguinal hernia defects all the way across the anterior abdominal wall. The peritoneum was then dissected free of the anterior abdominal wall using sharp dissection, blunt dissection, and electrocautery. Bilateral hernia defects were then exposed. The right side was encountered first. An indirect inguinal hernia defect was encountered. The peritoneum was freed from the cord structures, taking great care not to injure the cord structures. A moderate size lipoma of the cord was reduced. Attention was then turned to dissection of the left side. The left side, having had a previous anterior/open repair, had a large amount of scar tissue and adhesions. The Marlex plug that was used to perform the open repair was encountered. The cord structures and peritoneum were freed from the Marlex plug. This was done with great care, so as not to injure the cord structures. This was successful. After the peritoneum was free of the left groin, a medial/direct defect was identified, as well as a small lateral/indirect defect. The Marlex plug was protruding into the abdominal cavity, and it was felt that trimming of the plug would be necessary to allow the new mesh to lay flat. The Marlex plug was debrided, leaving a portion of it in situ. Enough of the plug was trimmed away to facilitate adequate placement of a new mesh. Next, right and left large 3 DMax inguinal hernia mesh was placed into the abdominal cavity. They were situated over the defects respectively. They were sutured medially and superiorly. These sutures were placed specifically to Ganga's ligament, the suprapubic midline, and adjacent to the epigastric v essels. The mesh then was found to lie in good place. The peritoneum was then closed using 20V lock suture in simple running fashion. The repairs were inspected, and appeared to be in good order. Once this was confirmed, the robot was undocked, and I scrubbed back into the case. The trochars were removed, and pneumoperitoneum was relieved. The supraumbilical fascia was closed using 0 Vicryl suture in [id number] fashion. The overlying skin was closed using 4-0 Vicryl Rapide suture in subcuticular fashion. All sponge, instrument, and needle counts were correct x2. Condition: Stable.
[2019-03-26] MEDS ORDERED: HYDROCODONE/ACETAMINOPHEN 10-325 MG TABLET PO PRN (11:08)
[2019-03-26] MEDS ORDERED: HYDROCODONE/ACETAMINOPHEN 10-325 MG TABLET ONE (11:22)
[2019-03-26] MEDS ORDERED: SUCCINYLCHOLINE CHLORIDE INJ 200 MG/10 ML VIAL ONE (14:44)
[2019-03-26] MEDS ORDERED: ROCURONIUM BROMIDE INJ 50 MG/5 ML VIAL IV ONE (14:44)
[2019-03-26 14:52] VITALS: BP 126/69
== END 2019-03-26 13:40 | disposition home or self-care (01) ==
LOC: OROUT 05:36
PROVIDERS: ATTEND Surgery
DX: K40.91 Unilateral inguinal hernia, without obstruction or gangrene, recurrent (principal); K40.90 Unilateral inguinal hernia, without obstruction or gangrene, not specified as recurrent; R00.0 Tachycardia, unspecified; I10 Essential (primary) hypertension; D69.1 Qualitative platelet defects; E11.9 Type 2 diabetes mellitus without complications; I73.9 Peripheral vascular disease, unspecified; Z79.899 Other long term (current) drug therapy; Z79.82 Long term (current) use of aspirin; Z79.891 Long term (current) use of opiate analgesic; Z88.0 Allergy status to penicillin; Z88.1 Allergy status to other antibiotic agents
CPT/HCPCS: 49650; 49651; S2900; 36415; 36430; 80048; 80076; 840; 85025; 86850; 86900; 86901; 93005; 93010; C1781; J0330; J1100; J1741; J1885; J2250; J2405; J2704; J3010; J3370; J3490; J7050; P9035

== ENCOUNTER 2019-03-27 11:10 | Inpatient (IN) | payer MEDICARE, MEDICAID ==
[2019-03-27] MEDS ORDERED: NORMAL SALINE 1000 ML 1,000 ML IV ONE (12:22)
[2019-03-27] MEDS ORDERED: FENTANYL CITRATE INJ/PF 100 MCG/2 ML AMPUL IV ONE (12:23)
[2019-03-27 12:56] LABS: ABSOLUTE LYMPHOCYTES (AUTO) 1.2 10^3/uL (0.5-4.7); ABSOLUTE MONOCYTES (AUTO) 1.7 10^3/uL (0.1-1.4); ABSOLUTE NEUT (AUTO) 8.7 10^3/uL (1.7-8.2); BASOPHILS % (AUTO) 0.2 % (0-2); EOSINOPHILS % (AUTO) 0.1 % (0-6); HEMATOCRIT 29.8 % (37.9-51.0); LYMPHOCYTES % (AUTO) 10.2 % (13-45); MEAN CORPUSCULAR HEMOGLOBIN 33.4 pg (27.0-33.4); MEAN CORPUSCULAR HGB CONC 34.4 g/dL (32.0-36.0); MEAN CORPUSCULAR VOLUME 97 fl (80-97); MONOCYTES % (AUTO) 14.4 % (3-13); RED BLOOD COUNT 3.07 10^6/uL (4.35-5.55); RED CELL DISTRIBUTION WIDTH 15.2 % (11.5-14.0); SEGMENTED NEUTROPHILS % (AUTO) 75.1 % (42-78); TOTAL CELLS COUNTED % (AUTO) 100 %
[2019-03-27 12:58] LABS: HEMOGLOBIN 10.2 g/dL (13.5-17.0); WHITE BLOOD COUNT 11.6 10^3/uL (4.0-10.5)
[2019-03-27 12:59] LABS: PLATELET COUNT 111 10^3/uL (150-450)
[2019-03-27 13:00] LABS: INTERNATIONAL RATION (INR) 1.81; PROTHROMBIN TIME 21.2 SEC (11.4-15.4)
[2019-03-27 13:15] LABS: ALKALINE PHOSPHATASE 69 U/L (38-126); ANION GAP 11 (5-19); ASPARTATE AMINO TRANSFERASE 84 U/L (17-59); BILIRUBIN,DIRECT 0.5 mg/dL (0.0-0.4); BILIRUBIN,TOTAL 2.1 mg/dL (0.2-1.3); BLOOD UREA NITROGEN 18 mg/dL (7-20); CALCIUM 8.1 mg/dL (8.4-10.2); CARBON DIOXIDE 25 mmol/L (22-30); CHLORIDE 100 mmol/L (98-107); GLUCOSE 162 mg/dL (75-110); POTASSIUM 3.8 mmol/L (3.6-5.0); TOTAL PROTEIN 7.1 g/dL (6.3-8.2)
--- NOTE | 2019-03-27 13:17 | ER Document Report ---
ED General - General TRAVEL OUTSIDE OF THE [place] IN LAST 30 DAYS: No - Related Data Home Medications: Hydrocodone <NICHELLE CUEVAS - Last Filed: 03/27/19 16:06> <CARLYLE ALEGRIA IV - Last Filed: 03/27/19 17:32> - General Chief Complaint: Abdominal Pain Stated Complaint: POSSIBLE SYNCOPE Time Seen by Provider: 03/27/19 11:57 - HPI Notes: Patient is a 64-year-old male who presents to the emergency department for evaluation. He was here in the hospital yesterday underwent laparoscopic inguinal hernia repair bilaterally by Dr. Álvarez. He was discharged home. He states that since going home he has had a sharp increase in pain. The Vicodin is not helping. He states he is had 3 near syncopal episodes, where he collapsed, but fell against the wall. He denies hitting his head or full loss of consciousness. He has not had a bowel movement since surgery. He states he feels his abdomen is bloated. He denies any difficulty breathing. (NICHELLE CUEVAS) - Related Data Allergies/Adverse Reactions: amoxicillin [Amoxicillin] Allergy (Unknown, Verified 03/27/19 11:36) ampicillin [Ampicillin] Allergy (Unknown, Verified 03/27/19 11:36) ceftriaxone sodium [From Rocephin] Allergy (Unknown, Verified 03/27/19 11:36) Cephalosporins Allergy (Unknown, Verified 03/27/19 11:36) Penicillins Allergy (Unknown, Verified 03/27/19 11:36) tetracycline [Tetracycline] Allergy (Unknown, Verified 03/27/19 11:36) Past Medical History - General Information source: Patient - Social History Smoking Status: Never Smoker Chew tobacco use (# tins/day): No Frequency of alcohol use: Social Drug Abuse: None Family History: Reviewed & Not Pertinent, Arthritis, Hypertension Patient has suicidal ideation: No Patient has homicidal ideation: No - Past Medical History Cardiac Medical History: Reports: Hx Hypercholesterolemia, Hx Hypertension - NO MEDS, CONTROLLED Denies: Hx Congestive Heart Failure, Hx Coronary Artery Disease, Hx Heart Attack Pulmonary Medical History: Denies: Hx Asthma, Hx Bronchitis, Hx COPD, Hx Pneumonia Neurological Medical History: Denies: Hx Cerebrovascular Accident, Hx Seizures Renal/ Medical History: Denies: Hx Peritoneal Dialysis GI Medical History: Reports: Hx Gastroesophageal Reflux Disease - PPI dependent, Hx Hepatitis - Hepatitis C Musculoskeletal Medical History: Reports Hx Arthritis - BACK, Reports Hx Musculoskeletal Deformity, Reports Hx Musculoskeletal Trauma Psychiatric Medical History: Denies: Hx Depression Past Surgical History: Reports: Hx Appendectomy, Hx Orthopedic Surgery - Immunizations Hx Diphtheria, Pertussis, Tetanus Vaccination: Yes - 2015 <NICHELLE CUEVAS - Last Filed: 03/27/19 16:06> Review of Systems - Review of Systems Constitutional: No symptoms reported EENT: No symptoms reported Cardiovascular: No symptoms reported Respiratory: No symptoms reported Gastrointestinal: See HPI Genitourinary: No symptoms reported Musculoskeletal: No symptoms reported Skin: No symptoms reported Neurological/Psychological: No symptoms reported <NICHELLE CUEVAS - Last Filed: 03/27/19 16:06> Physical Exam <NICHELLE CUEVAS - Last Filed: 03/27/19 16:06> - Vital signs Vitals: Temp Pulse Resp BP Pulse Ox 97.5 F 90 18 168/95 H 98 03/27/19 11:24 03/27/19 11:24 03/27/19 11:24 03/27/19 11:24 03/27/19 11:24 - Notes Notes: This is a 64-year-old male who appears his stated age in no acute distress. (NICHELLE CUEVAS) Course - Laboratory Result Diagrams: 03/27/19 12:40 03/27/19 12:40 - Diagnostic Test Radiology reviewed: Reports reviewed <NICHELLE CUEVAS - Last Filed: 03/27/19 16:06> - Laboratory Result Diagrams: 03/27/19 12:40 03/27/19 12:40 <CARLYLE ALEGRIA IV - Last Filed: 03/27/19 17:32> - Re-evaluation Re-evalutation: 03/27/19 13:37 Patient presents emergency department for evaluation. He has significant postoperative pain, states he has had near syncopal episodes x3. He states his pain medicine is only working minimally, but admits he has not had a dose in several hours. Laboratory investigations were ordered. I spoke with Dr. Álvarez in regards to this patient. He has the additional history of the patient having hepatitis C induced thrombocytopenia. He was given platelets prior to surgery yesterday. We did review this patient's labs, including his hemoglobin and platelet count today. We discussed further imaging, I did express my concerns i n regards to the fact that I could not get a significantly good abdominal exam on the patient, and he remains tachycardic. I explained that I would likely do a CT with IV contrast of the abdomen pelvis. He agrees that is reasonable, explains that it is likely that a hematoma will be present. Explained that in the absence of active bleeding this is a normal finding. Patient is kept n.p.o. He had been medicated multiple times for his pain. He remained stable, awaiting CT scan at this time. 03/27/19 15:49 CT scan of the abdomen pelvis did reveal a hematoma as expected, but no evidence of extravasation was appreciated. Patient remained stable, abdomen remained significantly tender but nonsurgical. I went back and reevaluate the patient, discussed findings. I was notified at that time by nursing that just a few moments before he had a heart rate in the 170s. I went in to evaluate the patient. At that point his heart rate was in the 90s. The patient did admit to having an episode of shortness of breath and feeling very dizzy. I went back out and examined the telemetry strips. At that point it did appear that he was having atrial fibrillation. EKG was ordered, we are able to capture this atrial fibrillation on EKG. Patient is indeed symptomatic with this. Patient states that in the past he had been being worked up for some sort of "rapid heart rate" but he really cannot elaborate on this for me. I spoke with Dr. Ruiz, then JARET Gannon in regards to this. On the phone with the physician surgical assistant certified, I did note that the patient's heart rate was in the 50s. This was the first time this had happened since he was in the department. JARET Gannon will come down and evaluate the patient. 03/27/19 15:59 The PA has come down to evaluate the patient. He does have some concerns about the amount of blood on CT scan, the drop in hemoglobin, and his change in cardiovascular status. At this point, he is planning to consult the piece dyer in regards to appropriate disposition for this patient. At any rate, patient has intermittent rapid atrial fibrillation that is symptomatic, he will be admitted to the hospital for further care. At this point, I am unsure as to the precise disposition, and that he may require OR, IMC, or the intensive care unit. (NICHELLE CUEVAS) - Vital Signs Vital signs: Temp Pulse Resp BP Pulse Ox 97.9 F 90 13 148/81 H 97 03/27/19 13:01 03/27/19 11:24 03/27/19 16:01 03/27/19 16:01 03/27/19 16:01 - Laboratory Laboratory results interpreted by me: 03/27/19 03/27/19 03/27/19 12:40 12:40 12:40 WBC 11.6 H D RBC 3.07 L Hgb 10.2 L D Hct 29.8 L RDW 15.2 H Plt Count 111 L D Lymph % (Auto) 10.2 L Morrow % (Auto) 14.4 H Absolute Neuts (auto) 8.7 H Absolute Monos (auto) 1.7 H PT 21.2 H Sodium 136.0 L Glucose 162 H Calcium 8.1 L Total Bilirubin 2.1 H Direct Bilirubin 0.5 H AST 84 H Albumin 3.0 L Urine Protein Urine Ketones Urine Urobilinogen Ur Leukocyte Esterase 03/27/19 13:44 WBC RBC Hgb Hct RDW Plt Count Lymph % (Auto) Morrow % (Auto) Absolute Neuts (auto) Absolute Monos (auto) PT Sodium Glucose Calcium Total Bilirubin Direct Bilirubin AST Albumin Urine Protein 30 H Urine Ketones TRACE H Urine Urobilinogen 2.0 H Ur Leukocyte Esterase SMALL H - Diagnostic Test Radiology results interpreted by me: 03/27/19 15:49 Chest X-Ray 03/27/19 12:15 IMPRESSION: NO ACUTE RADIOGRAPHIC FINDING IN THE CHEST. Abdomen/Pelvis CT 03/27/19 13:36 IMPRESSION: 1. A large left pelvic hematoma with surrounding hemorrhage in the left pelvis. No evidence of active extravasation. 2. Layering fluid/hemorrhage in the anterior left abdominal wall. No focal drainable abscess. 3. Small amount of ascites in the pericolic gutters and small amount of pneumoperitoneum, consistent with recent surgical procedure. 4. Nodular contour of the liver with heterogeneous enhancement, suggestive of underlying hepatic cirrhosis. Clinical correlation. Severe hepatic steatosis. (NICHELLE CUEVAS) - EKG Interpretation by Me Additional EKG results interpreted by me: 03/27/19 13:25 Sinus mechanism with a rate of 95 bpm, PAC noted. Normal axis, IVCD. Incomplete right bundle branch block. No significant change compared to prior study. (NICHELLE CUEVAS) Discharge <NICHELLE CUEVAS - Last Filed: 03/27/19 16:06> - Discharge Admitting Provider: Yariel (Hospitalist) - [place] [facility] ADMITTING FOR DR. RUIZ WITH [facility] [place] Unit Admitted: IMCU <CARLYLE ALEGRIA IV - Last Filed: 03/27/19 17:32> - Discharge Clinical Impression: Paroxysmal atrial fibrillation with rapid ventricular response, Near syncope, Postoperative anemia Abdominal wall hematoma Qualifiers: Encounter type: initial encounter Qualified Code(s): S30.1XXA - Contusion of abdominal wall, initial encounter Condition: Stable Disposition: ADMITTED INPATIENT
--- NOTE | 2019-03-27 13:24 | RADIOLOGY REPORT (SQ) ---
EXAM DESCRIPTION: CHEST 2 VIEWS COMPLETED DATE/TIME: 03/27/2019 12:01 pm REASON FOR STUDY: syncope, dizziness COMPARISON: None. EXAM PARAMETERS: NUMBER OF VIEWS: two views TECHNIQUE: Digital Frontal and Lateral radiographic views of the chest acquired. RADIATION DOSE: NA LIMITATIONS: none FINDINGS: LUNGS AND PLEURA: No opacities, masses or pneumothorax. No pleural effusion. MEDIASTINUM AND HILAR STRUCTURES: No masses or contour abnormalities. HEART AND VASCULAR STRUCTURES: Heart normal size. No evidence for failure. BONES: No acute findings. HARDWARE: None in the chest. OTHER: No other significant finding. IMPRESSION: NO ACUTE RADIOGRAPHIC FINDING IN THE CHEST. TECHNICAL DOCUMENTATION: JOB ID: [id number] [employer]- All Rights Reserved Reading location - IP/workstation name: [email or web address]
[2019-03-27 14:29] LABS: APPEARANCE,URINE SLIGHTLY-CLOUDY; BILIRUBIN,URINE NEGATIVE (NEGATIVE); COLOR,URINE AMBER; GLUCOSE, URINE NEGATIVE (NEGATIVE); KETONES,URINE TRACE mg/dL (NEGATIVE); LEUKOCYTE ESTERASE,URINE SMALL (NEGATIVE); NITRITE,URINE NEGATIVE (NEGATIVE); PROTEIN,URINE 30 mg/dL (NEGATIVE); URINE SPECIFIC GRAVITY 1.023
[2019-03-27 14:35] LABS: URINE AMPHETAMINES SCREEN NEGATIVE; URINE BARBITURATES SCREEN NEGATIVE; URINE COCAINE SCREEN NEGATIVE; URINE MARIJUANA (THC) SCREEN NEGATIVE; URINE METHADONE SCREEN NEGATIVE; URINE PHENCYCLIDINE SCREEN NEGATIVE
[2019-03-27 14:36] LABS: URINE BENZODIAZEPINES SCREEN UNCONFIRMED POSITIVE
--- NOTE | 2019-03-27 14:54 | RADIOLOGY REPORT (SQ) ---
EXAM DESCRIPTION: CT ABD/PELVIS WITH IV ONLY COMPLETED DATE/TIME: 03/27/2019 1:24 pm REASON FOR STUDY: recent surgery, tachycardia, pain . Left lower quadrant pain. High blood pressure . Patient unable does not. COMPARISON: CT abdomen and pelvis, 12/03/2018. Chest radiograph same date. TECHNIQUE: CT scan of the abdomen and pelvis performed using helical scanning technique with dynamic intravenous contrast injection. No oral contrast. Images reviewed with lung, soft tissue, and bone windows. Reconstructed coronal and sagittal MPR images reviewed. Delayed images for evaluation of the urinary system also acquired. All images stored on PACS. All CT scanners at this facility use dose modulation, iterative reconstruction, and/or weight based d osing when appropriate to reduce radiation dose to as low as reasonably achievable (ALARA). [facility]: Dose Right [facility]: CareDose [facility]: Dose Right [facility]: Teradose 4D [facility]: [employer] CONTRAST TYPE AND DOSE: contrast/concentration: Isovue 350.00 mg/ml; Total Contrast Delivered: 94.0 ml; Total Saline Delivered: 71.0 ml RENAL FUNCTION: GFR > 60. RADIATION DOSE: CT Rad equipment meets quality standard of care and radiation dose reduction techniq ues were employed. CTDIvol: 10.2 - 14.3 mGy. DLP: 1414 mGy-cm.. LIMITATIONS: None. FINDINGS: LOWER CHEST: No significant findings. No nodules or infiltrates. LIVER: The liver has a nodular contour with normal size. Severe hepatic steatosis. Heterogeneous e nhancement pattern. No definite focal hepatic mass. Hepatic and portal veins are patent. No intrah epatic or extrahepatic biliary ductal dilation. SPLEEN: Normal size. No focal lesions. PANCREAS: No masses. No significant calcifications. No adjacent inflammation or peripancreatic fluid collections. Pancreatic duct not dilated. GALLBLADDER: No identified stones by CT criteria. No inflammatory changes to suggest cholecystitis. ADRENAL GLANDS: No significant masses or asymmetry. RIGHT KIDNEY AND URETER: No solid masses. No significant calcifications. No hydronephrosis or hyd roureter. LEFT KIDNEY AND URETER: No solid masses. No significant calcifications. No hydronephrosis or hydr oureter. AORTA AND VESSELS: No aneurysm. No dissection. Renal arteries, SMA, celiac without stenosis. RETROPERITONEUM: No retroperitoneal mass or fluid. No retroperitoneal adenopathy. BOWEL AND PERITONEAL CAVITY: Small hiatal hernia. No bowel obstruction. No significant inflammatory change. There is a 9.7 x 5.9 cm pelvic hematoma with surrounding hemorrhage. No evidence of active extravasation into the hematoma on early or delayed phase images. Small amount of ascites in the pe ricolic gutters bilaterally. Several small foci of pneumoperitoneum, consistent with a recent surgic al procedure. APPENDIX: Not visualized. PELVIS: There is mass effect on the urinary bladder with displacement into the right pelvis secondary to the large hematoma in the left pelvis. Prostate has normal size. ABDOMINAL WALL: Subcutaneous fluid in the left anterior abdominal and pelvic wall. Small foci of gas adjacent to the left femoral artery and vein probably postsurgical from recent access. BONES: No suspicious bone lesions. OTHER: No other significant finding. IMPRESSION: 1. A large left pelvic hematoma with surrounding hemorrhage in the left pelvis. No evidence of activ e extravasation. 2. Layering fluid/hemorrhage in the anterior left abdominal wall. No focal drainable abscess. 3. Small amount of ascites in the pericolic gutters and small amount of pneumoperitoneum, consistent with recent surgical procedure. 4. Nodular contour of the liver with heterogeneous enhancement, suggestive of underlying hepatic cirr hosis. Clinical correlation. Severe hepatic steatosis. COMMENT: Findings discussed with Dr. Cornelius 03/27/2019 at 1345 hours. TECHNICAL DOCUMENTATION: JOB ID: [id number] Quality ID # [id number]: Final reports with documentation of one or more dose reduction techniques (e.g., Au tomated exposure control, adjustment of the mA and/or kV according to patient size, use of iterative reconstruction technique) 2010 [employer]- All Rights Reserved Reading location - IP/workstation name: [email or web address]
[2019-03-27] MEDS ORDERED: HYDROMORPHONE HCL INJ/PF 2 MG/ML AMPULE IV ONE (16:12)
[2019-03-27] MEDS ORDERED: ACETAMINOPHEN 325 MG TABLET PO PRN (16:39)
[2019-03-27] MEDS ORDERED: ONDANSETRON 4 MG TAB.RAPDIS PO PRN (16:39)
[2019-03-27] MEDS ORDERED: ONDANSETRON HCL INJ/PF 4 MG/2 ML SDV IV PRN (16:39)
--- NOTE | 2019-03-27 17:36 | PDOC H&P ---
History of Present Illness Admission Date/PCP: 03/27/2019 History of Present Illness: JING BONILLA is a 64 year old male who comes in today for syncope. According to the patient he had 3 episodes this morning of syncope. Patient states he got up this morning to go to the bathroom and felt weak and lightheaded and slumped down to the floor against the wall. States that he felt like that the episodes lasted a couple minutes apiece. Patient states that this is not ever happened to him before.. Today patient underwent a bilateral inguinal hernia repair here at [facility]. According to the surgeon and the operative note there were no complications. Estimated blood loss 30 cc. Patient was discharged home at approximately 1300 hrs. patient had pain medicine sent to take last night. Patient states he had a very restless night sleeping only about 30 minutes at a time. Patient states he is in much more pain now than he was prior to surgery or even immediately postop. Patient's other past medical history is that he has had a history of sinus tachycardia in the past, she seen a rolls baker in [place] Dr. Alonzo, has never had any ablation or cardioversion procedures. He does not ever remember being told he had atrial fibrillation. Patient also has a history of alcoholism and has drank beer as recently as Friday of this week. Patient also has a history of hepatitis C. The emergency room patient had a CT scan of the abdomen with IV contrast. Per the report this showed a large left pelvic hematoma with surrounding hemorrhage in the left pelvis, no evidence of active extravasation. Also layering of fluid and hemorrhage in the anterior left abdominal wall. Also evidence of nodular contour of the liver with heterogeneous enhancement suggestive of underlying h epatic cirrhosis, severe hepatic steatosis. I went and talked to the ICU pulmonologist/intensivist about this patient prior to his admission. Since the patient currently appears to be hemodynamically stable I am going to admit him to the floor, IMCU, serial labs to check his hemoglobin, the Dilaudid for his pain, periodic reassessment. I spoken to Dr. Álvarez the surgeon, who has also reviewed the CT scan and feels that it is stable, and does not require surgical intervention at this time. Currently I think patient is having sinus tachycardia secondary to his abdominal pain. Rate is going anywhere from 59 up to 173. I am going to repeat the EKG. patient may need to be given Cardizem if his tachycardia continues or if he becomes symptomatic from it. At this point I am not going to do a syncope work-up. I have explained all this to the patient and his significant other in the room, they agree with this explanation. Past Medical History Cardiac Medical History: Reports: Hyperlipidema, Hypertension - NO MEDS, CONTROLLED Denies: Congestive Heart Failure, Coronary Artery Disease, Myocardial Infarction Pulmonary Medical History: Denies: Asthma, Bronchitis, Chronic Obstructive Pulmonary Disease (COPD), Pneumonia Neurological Medical History: Denies: Seizures GI Medical History: Reports: Gastroesophageal Reflux Disease - PPI dependent, Hepatitis - Hepatitis C Musculoskeltal Medical History: Reports: Arthritis - BACK Psychiatric Medical History: Reports: Alcohol Dependency Denies: Depression Hematology: Denies: Anemia Infectious Medical History: Reports: Hepatitis C Past Surgical History Past Surgical History: Reports: Appendectomy, Orthopedic Surgery Social History Smoking Status: Never Smoker Electronic Cigarette use?: No Frequency of Alcohol Use: Heavy Hx Recreational Drug Use: Yes Drugs: Cocaine, Other Hx Prescription Drug Abuse: No - Advance Directive Resuscitation Status: Full Code Family History Family History: Reviewed & Not Pertinent, Arthritis, Hypertension Parental Family History Reviewed: No Children Family History Reviewed: No Sibling(s) Family History Reviewed.: No Medication/Allergy Home Medications: Tramadol HCl [Ultram] 25 mg PO QHS PRN 01/18/19 Omeprazole Magnesium [Prilosec Otc] 20 mg PO DAILY 03/12/19 Aspirin [Aspirin 81 mg Chewable Tablet] 1 tab PO DAILY 03/19/19 Allergies/Adverse Reactions: amoxicillin [Amoxicillin] Allergy (Unknown, Verified 03/27/19 11:36) ampicillin [Ampicillin] Allergy (Unknown, Verified 03/27/19 11:36) ceftriaxone sodium [From Rocephin] Allergy (Unknown, Verified 03/27/19 11:36) Cephalosporins Allergy (Unknown, Verified 03/27/19 11:36) Penicillins Allergy (Unknown, Verified 03/27/19 11:36) tetracycline [Tetracycline] Allergy (Unknown, Verified 03/27/19 11:36) Review of Systems Constitutional: ABSENT: chills, fever(s), headache(s), weight gain, weight loss Cardiovascular: PRESENT: palpitations, other - Syncope Respiratory: ABSENT: cough, hemoptysis Gastrointestinal: PRESENT: abdominal pain, bloating Neurological: ABSENT: abnormal gait, abnormal speech, confusion, dizziness, focal weakness, syncope Psychiatric: ABSENT: anxiety, depression, homidical ideation, suicidal ideation Physical Exam Vital Signs: Temp Pulse Resp BP Pulse Ox 97.9 F 90 13 148/81 H 97 03/27/19 13:01 03/27/19 11:24 03/27/19 16:01 03/27/19 16:01 03/27/19 16:01 Intake & Output 03/26/19 03/27/19 03/28/19 06:59 06:59 06:59 Intake Total 1000 Balance 1000 Weight 81.647 kg General appearance: PRESENT: mild distress Respiratory exam: PRESENT: clear to auscultation rogelio. ABSENT: rales, rhonchi, wheezes Cardiovascular exam: PRESENT: other - Patient is going from normal sinus rhythm to tachycardia GI/Abdominal exam: PRESENT: distended, normal bowel sounds, soft, tenderness - Generalized Neurological exam: PRESENT: alert, awake, oriented to person, oriented to place, oriented to time, oriented to situation, CN II-XII grossly intact. ABSENT: motor sensory deficit Psychiatric exam: PRESENT: anxious Results Laboratory Results: 03/27/19 12:40 03/27/19 12:40 03/27/19 03/27/19 03/27/19 12:40 12:40 13:44 WBC 11.6 H D RBC 3.07 L Hgb 10.2 L D Hct 29.8 L MCV 97 MCH 33.4 MCHC 34.4 RDW 15.2 H Plt Count 111 L D Seg Neutrophils % 75.1 Sodium 136.0 L Potassium 3.8 Chloride 100 Carbon Dioxide 25 Anion Gap 11 BUN 18 Creatinine 1.11 Est GFR ( Amer) > 60 Glucose 162 H Calcium 8.1 L Total Bilirubin 2.1 H AST 84 H Alkaline Phosphatase 69 Total Protein 7.1 Albumin 3.0 L Urine Color ROSALINDA Urine Appearance SLIGHTLY-CLOUDY Urine pH 5.0 Ur Specific [place] 1.023 Urine Protein 30 H Urine Glucose (UA) NEGATIVE Urine Ketones TRACE H Urine Blood NEGATIVE Urine Nitrite NEGATIVE Ur Leukocyte Esterase SMALL H Urine WBC (Auto) 7 Urine RBC (Auto) 1 03/27/19 12:40 Troponin I 0.013 Impressions: Chest X-Ray 03/27/19 12:15 IMPRESSION: NO ACUTE RADIOGRAPHIC FINDING IN THE CHEST. Abdomen/Pelvis CT 03/27/19 13:36 IMPRESSION: 1. A large left pelvic hematoma with surrounding hemorrhage in the left pelvis. No evidence of active extravasation. 2. Layering fluid/hemorrhage in the anterior left abdominal wall. No focal drainable abscess. 3. Small amount of ascites in the pericolic gutters and small amount of pneumoperitoneum, consistent with recent surgical procedure. 4. Nodular contour of the liver with heterogeneous enhancement, suggestive of underlying hepatic cirrhosis. Clinical correlation. Severe hepatic steatosis. Assessment and Plan - Diagnosis (1) Syncope Is this a current diagnosis for this admission?: Yes (2) Abdominal wall hematoma Qualifiers: Encounter type: initial encounter Qualified Code(s): S30.1XXA - Contusion of abdominal wall, initial encounter Is this a current diagnosis for this admission?: Yes (3) Alcoholism Is this a current diagnosis for this admission?: Yes (4) Chronic chest pain Is this a current diagnosis for this admission?: Yes (5) Thrombocytopenia Is this a current diagnosis for this admission?: Yes (6) Tachycardia Is this a current diagnosis for this admission?: Yes - Plan Summary Summary: 03/27/2019 Going to admit the patient for see you with serial labs, pain management, and t elemetry monitoring. She may need Cardizem if continues to be tachycardic after his pain is been treated. Follow hemoglobins closely. Keep patient on a clear liquid diet only. Not prophylactically treat for DVTs due to the risk of bleeding. Patient is medically stable to move from the ER up to the floor. - Time Time Spent with patient: 35 or more minutes
[2019-03-27] MEDS: LORAZEPAM 0.5 MG TABLET PO PRN (18:13)
[2019-03-27] MEDS: DOCUSATE SODIUM 100 MG CAPSULE PO SCH (18:13)
[2019-03-27] MEDS: NORMAL SALINE 1000 ML 1,000 ML IV PRN (18:15)
[2019-03-27 21:07] LABS: ABSOLUTE LYMPHOCYTES (AUTO) 1.7 10^3/uL (0.5-4.7); ABSOLUTE MONOCYTES (AUTO) 1.7 10^3/uL (0.1-1.4); ABSOLUTE NEUT (AUTO) 6.6 10^3/uL (1.7-8.2); BASOPHILS % (AUTO) 0.5 % (0-2); EOSINOPHILS % (AUTO) 0.3 % (0-6); HEMATOCRIT 25.5 % (37.9-51.0); LYMPHOCYTES % (AUTO) 16.8 % (13-45); MEAN CORPUSCULAR HEMOGLOBIN 34.1 pg (27.0-33.4); MEAN CORPUSCULAR HGB CONC 35.3 g/dL (32.0-36.0); MEAN CORPUSCULAR VOLUME 97 fl (80-97); MONOCYTES % (AUTO) 16.7 % (3-13); RED BLOOD COUNT 2.64 10^6/uL (4.35-5.55); RED CELL DISTRIBUTION WIDTH 15.3 % (11.5-14.0); SEGMENTED NEUTROPHILS % (AUTO) 65.7 % (42-78); TOTAL CELLS COUNTED % (AUTO) 100 %
[2019-03-27 21:43] LABS: PLATELET COUNT 94 10^3/uL (150-450)
[2019-03-27] MEDS: HYDROMORPHONE HCL INJ/PF 2 MG/ML AMPULE IV PRN (21:47)
[2019-03-27] MEDS: FAMOTIDINE INJ/PF 20 MG/2 ML SDV IV SCH (21:48)
[2019-03-28] MEDS: NORMAL SALINE 1000 ML 1,000 ML IV PRN (02:45)
[2019-03-28] MEDS: HYDROMORPHONE HCL INJ/PF 2 MG/ML AMPULE IV PRN (05:30)
[2019-03-28] MEDS: LORAZEPAM 0.5 MG TABLET PO PRN ×2 (05:30→21:45)
[2019-03-28 06:42] LABS: INTERNATIONAL RATION (INR) 1.48; PROTHROMBIN TIME 18.1 SEC (11.4-15.4)
[2019-03-28 06:43] LABS: PARTIAL THROMBOPLASTIN TIME 37.7 SEC (23.5-35.8)
[2019-03-28 06:55] LABS: ANION GAP 7 (5-19); BLOOD UREA NITROGEN 18 mg/dL (7-20); CALCIUM 7.3 mg/dL (8.4-10.2); CARBON DIOXIDE 27 mmol/L (22-30); CHLORIDE 99 mmol/L (98-107); GLUCOSE 99 mg/dL (75-110); POTASSIUM 3.8 mmol/L (3.6-5.0)
[2019-03-28 07:11] LABS: ABSOLUTE BASOPHILS # (AUTO) 0.1 10^3/uL (0.0-0.2); ABSOLUTE EOSINOPHILS # (AUTO) 0.1 10^3/uL (0.0-0.6); ABSOLUTE LYMPHOCYTES (AUTO) 2.9 10^3/uL (0.5-4.7); ABSOLUTE MONOCYTES (AUTO) 1.6 10^3/uL (0.1-1.4); ABSOLUTE NEUT (AUTO) 4.9 10^3/uL (1.7-8.2); BASOPHILS % (AUTO) 1.1 % (0-2); EOSINOPHILS % (AUTO) 1.4 % (0-6); HEMATOCRIT 22.3 % (37.9-51.0); LYMPHOCYTES % (AUTO) 29.8 % (13-45); MEAN CORPUSCULAR HEMOGLOBIN 33.8 pg (27.0-33.4); MEAN CORPUSCULAR HGB CONC 35.1 g/dL (32.0-36.0); MEAN CORPUSCULAR VOLUME 96 fl (80-97); MONOCYTES % (AUTO) 16.4 % (3-13); RED BLOOD COUNT 2.32 10^6/uL (4.35-5.55); RED CELL DISTRIBUTION WIDTH 15.1 % (11.5-14.0); SEGMENTED NEUTROPHILS % (AUTO) 51.3 % (42-78); TOTAL CELLS COUNTED % (AUTO) 100 %; WHITE BLOOD COUNT 9.7 10^3/uL (4.0-10.5)
[2019-03-28 07:15] LABS: HEMOGLOBIN 7.8 g/dL (13.5-17.0); PLATELET COUNT 85 10^3/uL (150-450)
[2019-03-28] MEDS ORDERED: NORMAL SALINE 250 ML IV PRN ×2 (08:09)
--- NOTE | 2019-03-28 08:20 | PDOC PROGRESS REPORT ---
Subjective Progress Note for:: 03/28/19 Reason For Visit: ABDOMINAL PAIN,STATUS POST BILATERAL INGUINAL 03/28/2019 Patient admitted for 3 episodes of syncope yesterday, tachycardia, abdominal pain Physical Exam Vital Signs: Temp Pulse Resp BP Pulse Ox 99.1 F 105 H 12 128/78 H 95 03/28/19 04:00 03/28/19 07:00 03/28/19 04:00 03/28/19 04:00 03/28/19 04:00 Intake & Output 03/27/19 03/28/19 03/29/19 06:59 06:59 06:59 Intake Total 2575 Output Total 600 Balance 1975 Weight 91.8 kg General appearance: PRESENT: mild distress Respiratory exam: PRESENT: clear to auscultation rogelio. ABSENT: rales, rhonchi, wheezes Cardiovascular exam: PRESENT: tachycardia GI/Abdominal exam: PRESENT: hyperactive bowel sounds - Patient has no guarding, no rebound, abdomen is not firm,, soft, tenderness Neurological exam: PRESENT: alert, awake, oriented to person, oriented to place, oriented to time, oriented to situation, CN II-XII grossly intact. ABSENT: motor sensory deficit Psychiatric exam: PRESENT: appropriate affect, normal mood. ABSENT: homicidal ideation, suicidal ideation Results Laboratory Results: 03/28/19 07:01 03/28/19 05:10 03/27/19 03/27/19 03/27/19 12:40 12:40 12:40 WBC 11.6 H D RBC 3.07 L Hgb 10.2 L D Hct 29.8 L MCV 97 MCH 33.4 MCHC 34.4 RDW 15.2 H Plt Count 111 L D Seg Neutrophils % 75.1 Sodium 136.0 L Potassium 3.8 Chloride 100 Carbon Dioxide 25 Anion Gap 11 BUN 18 Creatinine 1.11 Est GFR ( Amer) > 60 Glucose 162 H Calcium 8.1 L Magnesium Total Bilirubin 2.1 H AST 84 H Alkaline Phosphatase 69 Total Protein 7.1 Albumin 3.0 L Amylase 84 Lipase 205.0 TSH Urine Color Urine Appearance Urine pH Ur Specific [place] Urine Protein Urine Glucose (UA) Urine Ketones Urine Blood Urine Nitrite Ur Leukocyte Esterase Urine WBC (Auto) Urine RBC (Auto) 03/27/19 03/27/19 03/27/19 12:40 13:44 20:45 WBC 10.0 RBC 2.64 L Hgb 9.0 L Hct 25.5 L MCV 97 MCH 34.1 H MCHC 35.3 RDW 15.3 H Plt Count 94 L Seg Neutrophils % 65.7 Sodium Potassium Chloride Carbon Dioxide Anion Gap BUN Creatinine Est GFR ( Amer) Glucose Calcium Magnesium Total Bilirubin AST Alkaline Phosphatase Total Protein Albumin Amylase Lipase TSH 2.69 Urine Color ROSALINDA Urine Appearance SLIGHTLY-CLOUDY Urine pH 5.0 Ur Specific [place] 1.023 Urine Protein 30 H Urine Glucose (UA) NEGATIVE Urine Ketones TRACE H Urine Blood NEGATIVE Urine Nitrite NEGATIVE Ur Leukocyte Esterase SMALL H Urine WBC (Auto) 7 Urine RBC (Auto) 1 03/28/19 03/28/19 03/28/19 05:10 05:10 07:01 WBC Cancelled 9.7 RBC Cancelled 2.32 L Hgb Cancelled 7.8 L Hct Cancelled 22.3 L MCV Cancelled 96 MCH Cancelled 33.8 H MCHC Cancelled 35.1 RDW Cancelled 15.1 H Plt Count Cancelled 85 L Seg Neutrophils % Cancelled 51.3 Sodium 133.1 L Potassium 3.8 Chloride 99 Carbon Dioxide 27 Anion Gap 7 BUN 18 Creatinine 1.04 Est GFR ( Amer) > 60 Glucose 99 Calcium 7.3 L Magnesium 1.5 L Total Bilirubin AST Alkaline Phosphatase Total Protein Albumin Amylase Lipase TSH Urine Color Urine Appearance Urine pH Ur Specific [place] Urine Protein Urine Glucose (UA) Urine Ketones Urine Blood Urine Nitrite Ur Leukocyte Esterase Urine WBC (Auto) Urine RBC (Auto) 03/27/19 12:40 Troponin I 0.013 Impressions: Chest X-Ray 03/27/19 12:15 IMPRESSION: NO ACUTE RADIOGRAPHIC FINDING IN THE CHEST. Abdomen/Pelvis CT 03/27/19 13:36 IMPRESSION: 1. A large left pelvic hematoma with surrounding hemorrhage in the left pelvis. No evidence of active extravasation. 2. Layering fluid/hemorrhage in the anterior left abdominal wall. No focal drainable abscess. 3. Small amount of ascites in the pericolic gutters and small amount of pneumoperitoneum, consistent with recent surgical procedure. 4. Nodular contour of the liver with heterogeneous enhancement, suggestive of underlying hepatic cirrhosis. Clinical correlation. Severe hepatic steatosis. Assessment and Plan - Diagnosis (1) Syncope Is this a current diagnosis for this admission?: Yes (2) Abdominal wall hematoma Qualifiers: Encounter type: initial encounter Qualified Code(s): S30.1XXA - Contusion of abdominal wall, initial encounter Is this a current diagnosis for this admission?: Yes (3) Alcoholism Is this a current diagnosis for this admission?: Yes (4) Chronic chest pain Is this a current diagnosis for this admission?: Yes (5) Thrombocytopenia Is this a current diagnosis for this admission?: Yes (6) Tachycardia Is this a current diagnosis for this admission?: Yes - Plan Summary Summary: 03/27/2019 Going to admit the patient for see you with serial labs, pain management, and telemetry monitoring. She may need Cardizem if continues to be tachycardic after his pain is been treated. Follow hemoglobins closely. Keep patient on a clear liquid diet only. Not prophylactically treat for DVTs due to the risk of bleeding. Patient is medically stable to move from the ER up to the floor. 03/28/2019 Recent temperature is 99.1, recent heart rate this morning is 105, blood pressure is stable 128/78 This admission the patient's heart rate is gone from 92 up to 173 down to 115 and now at 105 Patient has remained however in sinus tachycardia EKG from last night showed a rate of 105 EKG from this morning showed a rate of 97 no evidence of atrial fibrillation March 19 of this year his hemoglobin was 15.6, March 26 his hemoglobin was 14.7 March 27 his hemoglobin was 10.2 and this morning his hemoglobin was down to 7.8 Renal functions appear stable BUN of 18 creatinine 1.04 GFR greater than 60 Patient reports that his abdomen is less painful this morning but he says that he is starting to get a little bit of pain in the top of his legs and in his scrotum. I suspect that this is the blood layering down just based on gravity.. 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 I am going to DC his Dilaudid and have him take Percocet 1 every 4 hours as needed. Obviously he will need to go home on p.o. analgesics and keeping him on Dilaudid all day today would be contraindicated. I am going to keep him on the Ativan as needed since he is anxious. I suspect if he stabilizes that I will discharge him home tomorrow morning. I am not going to repeat the CT of the abdomen at this time. Explained all this to the patient as well as his nurse. Patient readily admits that a lot of these problems he has he is brought on himself, he states "I am going to try to do better". - Time Time Spent with patient: 25-34 minutes
[2019-03-28] MEDS: DOCUSATE SODIUM 100 MG CAPSULE PO SCH ×2 (09:58→18:05)
[2019-03-28] MEDS: FAMOTIDINE INJ/PF 20 MG/2 ML SDV IV SCH ×2 (09:58→21:43)
[2019-03-28] MEDS: OXYCODONE-ACETAMINOPHEN 5-325 MG TABLET PO PRN (14:58)
[2019-03-28 16:23] LABS: ABSOLUTE BASOPHILS # (AUTO) 0.1 10^3/uL (0.0-0.2); ABSOLUTE EOSINOPHILS # (AUTO) 0.1 10^3/uL (0.0-0.6); ABSOLUTE LYMPHOCYTES (AUTO) 2.5 10^3/uL (0.5-4.7); ABSOLUTE NEUT (AUTO) 2.6 10^3/uL (1.7-8.2); BASOPHILS % (AUTO) 0.9 % (0-2); EOSINOPHILS % (AUTO) 1.8 % (0-6); HEMATOCRIT 22.2 % (37.9-51.0); MEAN CORPUSCULAR HEMOGLOBIN 33.4 pg (27.0-33.4); MEAN CORPUSCULAR HGB CONC 34.8 g/dL (32.0-36.0); MEAN CORPUSCULAR VOLUME 96 fl (80-97); RED BLOOD COUNT 2.32 10^6/uL (4.35-5.55); RED CELL DISTRIBUTION WIDTH 15.5 % (11.5-14.0); SEGMENTED NEUTROPHILS % (AUTO) 41.3 % (42-78); TOTAL CELLS COUNTED % (AUTO) 100 %; WHITE BLOOD COUNT 6.4 10^3/uL (4.0-10.5)
[2019-03-28 16:43] LABS: HEMOGLOBIN 7.7 g/dL (13.5-17.0); PLATELET COUNT 62 10^3/uL (150-450)
[2019-03-28] MEDS ORDERED: HYDROMORPHONE HCL INJ/PF 2 MG/ML AMPULE IV ONE (16:54)
[2019-03-28] MEDS ORDERED: HYDROMORPHONE HCL INJ/PF 2 MG/ML AMPULE ONE (17:00)
--- NOTE | 2019-03-28 17:50 | EKG REPORT ---
SEVERITY:- ABNORMAL ECG - SINUS RHYTHM ATRIAL PREMATURE COMPLEX RIGHT BUNDLE BRANCH BLOCK : Confirmed by: Tobi Rodriguez 28-Mar-2019 17:49:59
--- NOTE | 2019-03-28 17:50 | EKG REPORT ---
SEVERITY:- ABNORMAL ECG - SINUS TACHYCARDIA IVCD, CONSIDER ATYPICAL RBBB : Confirmed by: Tobi Rodriguez 28-Mar-2019 17:50:05
--- NOTE | 2019-03-28 19:42 | EKG REPORT ---
SEVERITY:- ABNORMAL ECG - SINUS RHYTHM INCOMPLETE RIGHT BUNDLE BRANCH BLOCK : Confirmed by: Tobi Rodriguez 28-Mar-2019 19:42:03
--- NOTE | 2019-03-28 20:42 | EKG REPORT ---
SEVERITY:- ABNORMAL ECG - SINUS RHYTHM ATRIAL PREMATURE COMPLEX INCOMPLETE RIGHT BUNDLE BRANCH BLOCK BORDERLINE INFERIOR Q WAVES : Confirmed by: Tobi Rodriguez 28-Mar-2019 20:42:02
[2019-03-28 21:52] LABS: HEMATOCRIT 24.6 % (37.9-51.0); HEMOGLOBIN 8.7 g/dL (13.5-17.0); MEAN CORPUSCULAR HEMOGLOBIN 33.3 pg (27.0-33.4); MEAN CORPUSCULAR HGB CONC 35.3 g/dL (32.0-36.0); MEAN CORPUSCULAR VOLUME 94 fl (80-97); RED BLOOD COUNT 2.61 10^6/uL (4.35-5.55); RED CELL DISTRIBUTION WIDTH 15.7 % (11.5-14.0); WHITE BLOOD COUNT 5.5 10^3/uL (4.0-10.5)
[2019-03-28 22:13] LABS: PLATELET COUNT 54 10^3/uL (150-450)
[2019-03-29] MEDS: OXYCODONE-ACETAMINOPHEN 5-325 MG TABLET PO PRN ×3 (04:28→15:35)
[2019-03-29 06:42] LABS: HEMATOCRIT 24.5 % (37.9-51.0); HEMOGLOBIN 8.7 g/dL (13.5-17.0); MEAN CORPUSCULAR HEMOGLOBIN 33.3 pg (27.0-33.4); MEAN CORPUSCULAR HGB CONC 35.4 g/dL (32.0-36.0); MEAN CORPUSCULAR VOLUME 94 fl (80-97); RED CELL DISTRIBUTION WIDTH 15.5 % (11.5-14.0); WHITE BLOOD COUNT 4.4 10^3/uL (4.0-10.5)
[2019-03-29 07:09] LABS: PLATELET COUNT 53 10^3/uL (150-450)
[2019-03-29] MEDS: FAMOTIDINE INJ/PF 20 MG/2 ML SDV IV SCH (10:39)
[2019-03-29] MEDS: DOCUSATE SODIUM 100 MG CAPSULE PO SCH (10:39)
--- NOTE | 2019-03-29 12:49 | EKG REPORT ---
SEVERITY:- ABNORMAL ECG - ATRIAL FIBRILLATION WITH RAPID V-RATE INCOMPLETE RIGHT BUNDLE BRANCH BLOCK : Confirmed on behalf of: Tobi Rodriguez 29-Mar-2019 12:48:56
[2019-03-29 14:06] LABS: HEMOGLOBIN 8.8 g/dL (13.5-17.0); MEAN CORPUSCULAR HEMOGLOBIN 33.1 pg (27.0-33.4); MEAN CORPUSCULAR HGB CONC 35.3 g/dL (32.0-36.0); MEAN CORPUSCULAR VOLUME 94 fl (80-97); RED BLOOD COUNT 2.67 10^6/uL (4.35-5.55); RED CELL DISTRIBUTION WIDTH 15.5 % (11.5-14.0); WHITE BLOOD COUNT 4.6 10^3/uL (4.0-10.5)
[2019-03-29 14:07] LABS: PLATELET COUNT 63 10^3/uL (150-450)
--- NOTE | 2019-03-29 14:23 | PDOC DISCHARGE SUMMARY ---
Impression - Admit/DC Date/PCP Admission Date/Primary Care Provider: 03/27/19 17:43 Discharge Date: 03/29/19 - Discharge Diagnosis (1) Syncope Is this a current diagnosis for this admission?: Yes (2) Abdominal wall hematoma Is this a current diagnosis for this admission?: Yes (3) Alcoholism Is this a current diagnosis for this admission?: Yes (4) Chronic chest pain Is this a current diagnosis for this admission?: Yes (5) Thrombocytopenia Is this a current diagnosis for this admission?: Yes (6) Tachycardia Is this a current diagnosis for this admission?: Yes (7) Cirrhosis Is this a current diagnosis for this admission?: Yes - Assessment Summary: 03/27/2019 Going to admit the patient for see you with serial labs, pain management, and telemetry monitoring. She may need Cardizem if continues to be tachycardic after his pain is been treated. Follow hemoglobins closely. Keep patient on a clear liquid diet only. Not prophylactically treat for DVTs due to the risk of bleeding. Patient is medically stable to move from the ER up to the floor. 03/28/2019 Recent temperature is 99.1, recent heart rate this morning is 105, blood pressure is stable 128/78 This admission the patient's heart rate is gone from 92 up to 173 down to 115 and now at 105 Patient has remained however in sinus tachycardia EKG from last night showed a rate of 105 EKG from this morning showed a rate of 97 no evidence of atrial fibrillation March 19 of this year his hemoglobin was 15.6, March 26 his hemoglobin was 14.7 March 27 his hemoglobin was 10.2 and this morning his hemoglobin was down to 7.8 Renal functions appear stable BUN of 18 creatinine 1.04 GFR greater than 60 Patient reports that his abdomen is less painful this morning but he says that he is starting to get a little bit of pain in the top of his legs and in his scrotum. I suspect that this is the blood layering down just based on gravity.. Because he is symptomatic from his hematoma i.e. sinus tachycardia and episodes of syncope yesterday and a drop in his hemoglobin of 7, I am going to give him 2 units of packed red cells today.. I am going to DC his Dilaudid and have him take Percocet 1 every 4 hours as needed. Obviously he will need to go home on p.o. analgesics and keeping him on Dilaudid all day today would be contraindicated. I am going to keep him on the Ativan as needed since he is anxious. I suspect if he stabilizes that I will discharge him home tomorrow morning. I am not going to repeat the CT of the abdomen at this time. Explained all this to the patient as well as his nurse. Patient readily admits that a lot of these problems he has he is brought on himself, he states "I am going to try to do better". 03/29/2019 Patient has had multiple serial hemoglobins and hematocrits following his abdominal hematoma. Admission his hemoglobin was 7.7 after 2 units it went to 8.7 I repeated it again it stayed at 8.7 and then for third hemoglobin approximately 18 hours following transfusion it is remained at 8.8. Patient's pain has improved significantly Longer tachycardia at the time of discharge his pulse is 85 his blood pressure is 120/74 he is afebrile She has Ultram at home which she is going to take I also wrote for Zofran to use for nausea and vomiting Instructions were to return to the emergency room for any vomiting severe pain or fever, or other symptoms that concern to him. He was seen by the surgeon that performed the bilateral inguinal hernia repair, patient has an appointment on April 03. Patient is passing gas having bowel movements. Is tolerating p.o. pain medication. Patient is also eating a full liquid diet with no complaints - Additional Information Resuscitation Status: Full Code Discharge Diet: As Tolerated Discharge Activity: Balance Activity w/Rest, No Driving, No Lifting Over 10 Pounds, No Lifting/Push/Pulling, Slowly Increase Activity Prescriptions: Ondansetron [Zofran Odt 4 mg Tablet] 4 mg PO Q6HP PRN 3 Days #10 tab.rapdis PRN Reason: Home Medications: Tramadol HCl [Ultram] 25 mg PO QHS PRN 01/18/19 Esomeprazole Magnesium [Nexium] 20 mg PO DAILY 03/28/19 Acetaminophen [Tylenol 325 mg Tablet] 650 mg PO Q4HP PRN tablet 03/29/19 Docusate Sodium [Colace 100 mg Capsule] 100 mg PO BID capsule 03/29/19 Ondansetron [Zofran Odt 4 mg Tablet] 4 mg PO Q6HP PRN 3 Days #10 tab.rapdis 03/29/19 History of Present Illiness History of Present Illness: JING BONILLA is a 64 year old male who comes in today for syncope. According to the patient he had 3 episodes this morning of syncope. Patient states he got up this morning to go to the bathroom and felt weak and lightheaded and slumped down to the floor against the wall. States that he felt like that the episodes lasted a couple minutes apiece. Patient states that this is not ever happened to him before.. Today patient underwent a bilateral inguinal hernia repair here at [facility]. According to the surgeon and the operative note there were no complications. Estimated blood loss 30 cc. Patient was discharged home at approximately 1300 hrs. patient had pain medicine sent to take last night. Patient states he had a very restless night sleeping only about 30 minutes at a time. Patient states he is in much more pain now than he was prior to surgery or even immediately postop. Patient's other past medical history is that he has had a history of sinus tachycardia in the past, she seen a party plan sales director in [place] Dr. Alonzo, has never had any ablation or cardioversion procedures. He does not ever remember being told he had atrial fibrillation. Patient also has a history of alcoholism and has drank beer as recently as Friday of this week. Patient also has a history of hepatitis C. The emergency room patient had a CT scan of the abdomen with IV contrast. Per the report this showed a large left pelvic hematoma with surrounding hemorrhage in the left pelvis, no evidence of active extravasation. Also layering of fluid and hemorrhage in the anterior left abdominal wall. Also evidence of nodular contour of the liver with heterogeneous enhancement suggestive of underlying hepatic cirrhosis, severe hepatic steatosis. I went and talked to the ICU electrical and instrument technician about this patient prior to his admission. Since the patient currently appears to be hemodynamically stable I am going to admit him to the floor, IMCU, serial labs to check his hemoglobin, the Dilaudid for his pain, periodic reassessment. I spoken to Dr. Álvarez the surgeon, who has also reviewed the CT scan and feels that it is stable, and does not require surgical intervention at this time. Currently I think patient is having sinus tachycardia secondary to his abdominal pain. Rate is going anywhere from 59 up to 173. I am going to repeat the EKG. patient may need to be given Cardizem if his tachycardia continues or if he becomes symptomatic from it. At this point I am not going to do a syncope work-up. I have explained all this to the patient and his significant other in the room, they agree with this explanation. Physical Exam Vital Signs: Temp Pulse Resp BP Pulse Ox 98.9 F 78 20 120/74 93 03/29/19 12:09 03/29/19 12:09 03/29/19 12:09 03/29/19 12:09 03/29/19 12:09 Intake & Output 03/28/19 03/29/19 03/30/19 06:59 06:59 06:59 Intake Total 2575 4711 Output Total 600 2175 Balance 1975 2536 Weight 91.8 kg 92.4 kg Results Laboratory Results: WBC 4.6 10^3/uL (4.0-10.5) 03/29/19 14:03 RBC 2.67 10^6/uL (4.35-5.55) L 03/29/19 14:03 Hgb 8.8 g/dL (13.5-17.0) L 03/29/19 14:03 Hct 25.0 % (37.9-51.0) L 03/29/19 14:03 MCV 94 fl (80-97) 03/29/19 14:03 MCH 33.1 pg (27.0-33.4) 03/29/19 14:03 MCHC 35.3 g/dL (32.0-36.0) 03/29/19 14:03 RDW 15.5 % (11.5-14.0) H 03/29/19 14:03 Plt Count 63 10^3/uL (150-450) L 03/29/19 14:03 Lymph % (Auto) Cancelled 03/29/19 13:43 [place] % (Auto) Cancelled 03/29/19 13:43 Eos % (Auto) Cancelled 03/29/19 13:43 Baso % (Auto) Cancelled 03/29/19 13:43 Absolute Neuts (auto) Cancelled 03/29/19 13:43 Absolute Lymphs (auto) Cancelled 03/29/19 13:43 Absolute Monos (auto) Cancelled 03/29/19 13:43 Absolute Eos (auto) Cancelled 03/29/19 13:43 Absolute Basos (auto) Cancelled 03/29/19 13:43 Seg Neutrophils % Cancelled 03/29/19 13:43 Platelet Estimate Cancelled 03/29/19 13:43 PT 18.1 SEC (11.4-15.4) H 03/28/19 05:10 INR 1.48 03/28/19 05:10 APTT 37.7 SEC (23.5-35.8) H 03/28/19 05:10 Sodium 133.1 mmol/L (137-145) L 03/28/19 05:10 Potassium 3.8 mmol/L (3.6-5.0) 03/28/19 05:10 Chloride 99 mmol/L (98-107) 03/28/19 05:10 Carbon Dioxide 27 mmol/L (22-30) 03/28/19 05:10 Anion Gap 7 (5-19) 03/28/19 05:10 BUN 18 mg/dL (7-20) 03/28/19 05:10 Creatinine 1.04 mg/dL (0.52-1.25) 03/28/19 05:10 Est GFR ( Amer) > 60 (>60) 03/28/19 05:10 Est GFR (MDRD) Non-Af > 60 (>60) 03/28/19 05:10 Glucose 99 mg/dL (75-110) 03/28/19 05:10 Calcium 7.3 mg/dL (8.4-10.2) L 03/28/19 05:10 Magnesium 1.5 mg/dL (1.6-2.3) L 03/28/19 05:10 Total Bilirubin 2.1 mg/dL (0.2-1.3) H 03/27/19 12:40 Direct Bilirubin 0.5 mg/dL (0.0-0.4) H 03/27/19 12:40 Neonat Total Bilirubin Not Reportable 03/27/19 12:40 Neonat Direct Bilirubin Not Reportable 03/27/19 12:40 Neonat Indirect Bili Not Reportable 03/27/19 12:40 AST 84 U/L (17-59) H 03/27/19 12:40 ALT 41 U/L (<50) 03/27/19 12:40 Alkaline Phosphatase 69 U/L (38-126) 03/27/19 12:40 Troponin I 0.013 ng/mL 03/27/19 12:40 Total Protein 7.1 g/dL (6.3-8.2) 03/27/19 12:40 Albumin 3.0 g/dL (3.5-5.0) L 03/27/19 12:40 Amylase 84 U/L (30-110) 03/27/19 12:40 Lipase 205.0 U/L (23-300) 03/27/19 12:40 TSH 2.69 uIU/mL (0.47-4.68) 03/27/19 12:40 Urine Color ROSALINDA 03/27/19 13:44 Urine Appearance SLIGHTLY-CLOUDY 03/27/19 13:44 Urine pH 5.0 (5.0-9.0) 03/27/19 13:44 Ur Specific [place] 1.023 03/27/19 13:44 Urine Protein 30 mg/dL (NEGATIVE) H 03/27/19 13:44 Urine Glucose (UA) NEGATIVE mg/dL (NEGATIVE) 03/27/19 13:44 Urine Ketones TRACE mg/dL (NEGATIVE) H 03/27/19 13:44 Urine Blood NEGATIVE (NEGATIVE) 03/27/19 13:44 Urine Nitrite NEGATIVE (NEGATIVE) 03/27/19 13:44 Urine Bilirubin NEGATIVE (NEGATIVE) 03/27/19 13:44 Urine Urobilinogen 2.0 mg/dL (<2.0) H 03/27/19 13:44 Ur Leukocyte Esterase SMALL (NEGATIVE) H 03/27/19 13:44 Urine WBC (Auto) 7 /HPF 03/27/19 13:44 Urine RBC (Auto) 1 /HPF 03/27/19 13:44 U Hyaline Cast (Auto) 61 /LPF 03/27/19 13:44 Squamous Epi Cells Auto 1 /HPF 03/27/19 13:44 Urine Mucus (Auto) FEW /LPF 03/27/19 13:44 Urine Ascorbic Acid NEGATIVE (NEGATIVE) 03/27/19 13:44 Urine Opiates Screen UNCONFIRMED POSITIVE 03/27/19 13:44 Urine Methadone Screen NEGATIVE 03/27/19 13:44 Ur Barbiturates Screen NEGATIVE 03/27/19 13:44 Ur Phencyclidine Scrn NEGATIVE 03/27/19 13:44 Ur Amphetamines Screen NEGATIVE 03/27/19 13:44 U Benzodiazepines Scrn UNCONFIRMED POSITIVE 03/27/19 13:44 Urine Cocaine Screen NEGATIVE 03/27/19 13:44 U Marijuana (THC) Screen NEGATIVE 03/27/19 13:44 Slides for Path Review Cancelled 03/29/19 13:43 Blood Type O POSITIVE 03/28/19 09:28 Antibody Screen NEGATIVE 03/28/19 09:28 Crossmatch See Detail 03/28/19 09:28 03/27/19 12:40 Troponin I 0.013 Impressions: Chest X-Ray 03/27/19 12:15 IMPRESSION: NO ACUTE RADIOGRAPHIC FINDING IN THE CHEST. Abdomen/Pelvis CT 03/27/19 13:36 IMPRESSION: 1. A large left pelvic hematoma with surrounding hemorrhage in the left pelvis. No evidence of active extravasation. 2. Layering fluid/hemorrhage in the anterior left abdominal wall. No focal drainable abscess. 3. Small amount of ascites in the pericolic gutters and small amount of pneumoperitoneum, consistent with recent surgical procedure. 4. Nodular contour of the liver with heterogeneous enhancement, suggestive of underlying hepatic cirrhosis. Clinical correlation. Severe hepatic steatosis. Stroke Is this a Stroke Patient?: No Acute Heart Failure - Is this a Heart Failure Patient?: No
[2019-03-29 14:35] VITALS: BP 128/80
== END 2019-03-29 17:10 | disposition home or self-care (01) | DRG 605 ==
LOC: ER 11:10 → EH 17:43 → 3N 21:34
PROVIDERS: ADMIT Internal Medicine; ATTEND Internal Medicine
PROC: 30233N1 Transfusion of Nonautologous Red Blood Cells into Peripheral Vein, Percutaneous Approach (ICD-10-PCS; principal; 2019-03-28)
DX: S30.1XXA Contusion of abdominal wall, initial encounter (principal); D69.6 Thrombocytopenia, unspecified; K74.60 Unspecified cirrhosis of liver; R55 Syncope and collapse; F10.20 Alcohol dependence, uncomplicated; R07.9 Chest pain, unspecified; G89.29 Other chronic pain; R00.0 Tachycardia, unspecified; Z86.19 Personal history of other infectious and parasitic diseases; K21.9 Gastro-esophageal reflux disease without esophagitis; M46.90 Unspecified inflammatory spondylopathy, site unspecified; Y83.8 Other surgical procedures as the cause of abnormal reaction of the patient, or of later complication, without mention of misadventure at the time of the procedure; F14.90 Cocaine use, unspecified, uncomplicated; Z82.61 Family history of arthritis; Z79.82 Long term (current) use of aspirin; Z88.1 Allergy status to other antibiotic agents; Z88.0 Allergy status to penicillin; Z88.8 Allergy status to other drugs, medicaments and biological substances
CPT/HCPCS: 36415; 36430; 71046; 74177; 80048; 80053; 80076; 80307; 81001; 82150; 83690; 83735; 84443; 84484; 85025; 85027; 85610; 85730; 86850; 86900; 86901; 86920; 93005; 93010; 96361; 96374; 96375; 99285; J1170; J3010; J7030; P9016; S0028; S0119

== ENCOUNTER → 2020-03-14 | Outpatient (CLI) | payer MEDICARE, MEDICAID ==
--- NOTE | 2020-03-14 16:15 | RADIOLOGY REPORT (SQ) ---
EXAM DESCRIPTION: CT ABD/PELVIS WITH IV ORAL IMAGES COMPLETED DATE/TIME: 03/14/2020 11:33 am REASON FOR STUDY: (R10.13)EPIGASTRIC PAIN;(K70.30)ALCOHOLIC CIRRHOSIS OF LIVER WITHOUT ASCITE R10.13 EPIGASTRIC PAIN K70.30 ALCOHOLIC CIRRHOSIS OF LIVER WITHOUT ASCITES COMPARISON: 03/27/2019 TECHNIQUE: CT scan of the abdomen and pelvis performed using helical scanning technique with dynamic intravenous contrast injection. Oral contrast was also given. Images reviewed with lung, soft tissu e, and bone windows. Reconstructed coronal and sagittal MPR images reviewed. Delayed images for evalu ation of the urinary system also acquired. All images stored on PACS. All CT scanners at this facility use dose modulation, iterative reconstruction, and/or weight based d osing when appropriate to reduce radiation dose to as low as reasonably achievable (ALARA). [facility]: Dose Right [facility]: CareDose [facility]: Dose Right [facility]: Teradose 4D [facility]: MeetCute CONTRAST TYPE AND DOSE: contrast/concentration: Isovue 350.00 mmol/ml; Total Contrast Delivered: 96. 0 ml; Total Saline Delivered: 69.9 ml RENAL FUNCTION: Creatinine 0.8 RADIATION DOSE: CT Rad equipment meets quality standard of care and radiation dose reduction techniq ues were employed. CTDIvol: 5.5 - 5.5 mGy. DLP: 579 mGy-cm.. LIMITATIONS: None. FINDINGS: LOWER CHEST: No basilar consolidation. LIVER: Cirrhotic liver morphology with slightly nodular contour and lobar redistribution. No suspici ous liver lesion identified. SPLEEN: Normal size. No focal lesions. PANCREAS: Some focal ill defined hypodensity in the region of the pancreatic head/ uncinate process i s new from prior examination. This measures approximately 1.2 x 1.5 cm (series 2, image 30). The paul ziness extends beyond the pancreatic margin. There is some stranding noted surrounding the proximal aspect of the SMA. This also appears new from prior. The adjacent vasculature appears patent. Slig ht increased prominence of the pancreatic duct. GALLBLADDER: Mild gallbladder wall thickening may be due to underlying liver disease. No calcified g allstones. ADRENAL GLANDS: No significant masses or asymmetry. RIGHT KIDNEY AND URETER: No solid masses. No significant calcifications. No hydronephrosis or hyd roureter. LEFT KIDNEY AND URETER: No solid masses. No significant calcifications. No hydronephrosis or hydr oureter. AORTA AND VESSELS: Some mild haziness surrounding the SMA as above with mild fat stranding also demon strated adjacent to the celiac trunk. No aortic aneurysm. RETROPERITONEUM: No retroperitoneal adenopathy, hemorrhage or masses. BOWEL AND PERITONEAL CAVITY: Some lower paraesophageal varices. Varices also demonstrated along the gastrohepatic ligament. No bowel dilatation or significant wall thickening. Distal colon is underdi stended with associated wall prominence. Colon diverticulosis. APPENDIX: Surgically absent. PELVIS: No mass. No free fluid. Normal bladder. ABDOMINAL WALL: No masses. No hernias. BONES: No significant or acute findings. OTHER: No other significant finding. IMPRESSION: 1. Some new ill defined hypodensity in the region of the pancreatic uncinate process wi th haziness of the adjacent fat. Fat stranding is also noted surrounding the SMA and portion of the celiac trunk. Findings could reflect acute focal inflammation in the setting of pancreatitis, though a pancreatic mass lesion with local infiltration is not excluded. Consider further evaluation with endoscopic ultrasound. Some pancreatic ductal prominence is also increased from prior. 2. Cirrhotic liver morphology with stigmata of portal hypertension including mild upper abdominal an d paraesophageal varices. No suspicious liver lesion identified. 3. Colon diverticulosis. TECHNICAL DOCUMENTATION: JOB ID: [id number] Quality ID # [id number]: Final reports with documentation of one or more dose reduction techniques (e.g., Au tomated exposure control, adjustment of the mA and/or kV according to patient size, use of iterative reconstruction technique) 2010 [employer]- All Rights Reserved Reading location - IP/workstation name: [email or web address]
== END ==
LOC: RAD 11:37
PROVIDERS: ATTEND Internal Medicine Gastroenterology
DX: R10.13 Epigastric pain (principal); K70.30 Alcoholic cirrhosis of liver without ascites
CPT/HCPCS: 74177; 82565